=== PATIENT | male | born 1965 | race Caucasian/White ===

== ENCOUNTER → 2016-11-05 | Outpatient (CLI) | payer MEDICARE, MEDICAID ==
[~2016-11-05] MED LIST: ACET-2321 PO; ALBU8.5H5 IH; ALPR2TAB7 PO; ARFO15VI2 IH; ASPI-917 PO; ATOR40TA29 PO; CLOP75TA33 PO; CYCL-375 PO; DIPH25TA56 PO; DULO60CA25 PO; GEMF600T61 PO; HYDR-3995 PO; IMMU4VIA SQ; ISOS30TA6 PO; LISI-621 PO; METO10TA3 PO; METO50TA5 PO; OFLO5DRO3 EACH EAR; OMEP40CA30 PO; QUET400T3 PO; [UNRECOGNIZED DRUG - CODE] IM; [UNRECOGNIZED DRUG - CODE] IM
[2016-11-05 11:41] LABS: HCT - HEMATOCRIT 43.8 % (41-53); HGB - HEMOGLOBIN 14.6 GM/DL (13.5-17.5); MEAN CORPUSCULAR HGB 30.1 UUG (26-34); MEAN CORPUSCULAR HGB CONC(MCHC 33.3 GM/DL (31-37); MEAN CORPUSCULAR VOLUME 90.3 UM3 (80-100); MEAN PLATELET VOLUME 10.4 UM3 (9.4-12.4); RED BLOOD COUNT 4.85 M/MM3 (4.50-5.90); WBC - WHITE BLOOD COUNT 4.5 T/MM3 (4.5-11.0)
[2016-11-05 11:50] LABS: ALBUMIN 3.7 G/DL (3.5-5.0); ALBUMIN/GLOBULIN RATIO 1.3 RATIO (1.1-2.2); ALKALINE PHOSPHATASE 90 U/L (38-126); ALT (SGPT) 17 U/L (21-72); ANION GAP 11 MEQ/L (5-15); AST (SGOT) 21 U/L (17-59); BUN/CREATININE RATIO 9 RATIO (6-26); CALCIUM 8.8 MG/DL (8.4-10.2); CHLORIDE 104 MEQ/L (98-107); CO2 - CARBON DIOXIDE 28 MEQ/L (22-30); GLOMERULAR FILTRATION RATE 79; GLUCOSE 133 MG/DL (75-110); POTASSIUM 4.1 MEQ/L (3.6-5); SODIUM 143 MEQ/L (134-144); TOTAL PROTEIN 6.6 G/DL (6.3-8.2)
[2016-11-05 11:57] LABS: IGG - IMMUNOGLOBULIN G 808.47 MG/DL (700-1600)
== END ==
LOC: LABN 11:29 → LABN.ARJ 11:29
PROVIDERS: ATTEND Internal Medicine Infectious Disease
DX: D83.9 Common variable immunodeficiency, unspecified (principal)
CPT/HCPCS: 80053; 82784; 85027

== ENCOUNTER 2016-11-28 10:44 | Emergency (ER) | payer MEDICARE, MEDICAID ==
[~2016-11-28] VITALS: Ht 177.8 cm; Wt 80.0 kg
--- OUTSIDE RECORDS SUMMARY | 2016-11-28 10:48 | XMS REPORT | Continuity of Care Document ---
Author Author Mavis Enriquez Mavis Address Unknown Phone Unavailable Care Team Providers Care Ore Puncher Name Role Phone [employer] Unavailable Unavailable Problems Medications Allergies, Adverse Reactions, Alerts Immunizations Results Order Name Results Value Reference Range Date Interpretation Comments Source Cardiology Documents Cardiology Documents 05/15/2005 [facility] Cardiology Documents Cardiology Documents 05/15/2005 [facility] Cardiology Documents Cardiology Documents 05/15/2005 [facility] Cardiology Documents Cardiology Documents 05/15/2005 [facility] Vital Signs Encounters Procedures Plan of Care Social History Assessment and Plan Family History Value Date Source Advance Directives Order Name Results Value Date Source
--- OUTSIDE RECORDS SUMMARY | 2016-11-28 10:48 | XMS REPORT | Continuity of Care Document ---
Author Author [facility] Organization [facility] Address Unknown Phone Unavailable Allergies Active Description Code Type Severity Reaction Onset Reported/Identified Relationship to Patient Clinical Status Yes acetaminophen NKMA N/A ITCHING 11/10/2013 Yes oxyCODONE NKMA N/A ITCHING 11/10/2013 Medications Problems Procedures Results Encounters ACCT No. Visit Date/Time Discharge Status Pt. Type Provider Facility Loc./Unit Complaint [id number] 11/22/2016 14:20:00 2016 23:59:00 DIS Outpatient Zacarias Woodson [facility] ENT TCPA RCK BLEEDING FROM EAR [id number] 05/19/2015 14:05:00 2014 23:59:00 DIS Outpatient Nidhi Higuera [facility] Audio Nidhi HAJI [id number] 01/04/2015 16:10:00 2014 23:59:00 DIS Outpatient Nidhi Higuera [facility] Audio Nidhi SAHU Charges
--- OUTSIDE RECORDS SUMMARY | 2016-11-28 10:49 | XMS REPORT ---
Author Author Charlie Braswell Organization [employer] Address Unknown Phone Unavailable Care Team Providers Care Fence Supervisor Name Role Phone Charlie Braswell CP Unavailable Allergies No Known Allergies Problems No Known Problems Medications No Known Medications Results No Known Results Summary Purpose [employer] Submission
--- OUTSIDE RECORDS SUMMARY | 2016-11-28 10:49 | XMS REPORT ---
Author Author Charlie Braswell [facility] [employer] Address Unknown Phone Unavailable Care Team Providers Care Aluminum Siding Mechanic Name Role Phone Charlie Braswell CP Unavailable Allergies, Adverse Reactions, Alerts Substance Reaction Event Type Ultram Info Not Available Drug Allergy Percocet Info Not Available Drug Allergy Nyssa Info Not Available Drug Allergy Morphine Sulfate Info Not Available Drug Allergy Dilaudid Info Not Available Drug Allergy Problems Problem Type Condition Code Onset Dates Condition Status Assessment Dental caries on pit and fissure surface penetrating into pulp K02.53 Active Medications Medication Code System Code Instructions Start Date End Date Status Dosage ALPRAZolam ER [facility] [address]-09 not defined Prilosec [facility] [address]-80 not defined Lisinopril [facility] [address]-21 not defined Lortab [facility] [address]-48 not defined Metoprolol Tartrate [facility] [address]-84 not defined ProAir HFA [facility] [address]-84 not defined Seroquel XR [facility] [address]-37 not defined Atorvastatin Calcium [facility] [address]-29 not defined Toprol XL [facility] [address]-17 not defined Hydrocodone-Acetaminophen [facility] [address]-30 not defined Isosorbide Dinitrate [facility] [address]-93 not defined Metoclopramide HCl [facility] [address]-54 not defined Plavix [facility] [address]-93 not defined Chlorhexidine Gluconate [facility] [address]-47 0.12 % Mouth/Throat morning and bedtime not defined Benadryl Allergy [facility] 55849-82683 not defined Anbesol [facility] [address]-21 not defined Tylenol Extra Strength [facility] [address]-33 not defined Xanax [facility] [address]-09 not defined Aspirin [facility] [address]-04 not defined Cymbalta [facility] [address]-34 not defined EpiPen NDC [address]-33 not defined Nitrostat [facility] [address]-85 not defined Brovana [facility] [address]-39 not defined Gemfibrozil [facility] [address]-79 not defined Ofloxacin [facility] [address]-72 not defined Procedures Procedure Coding System Code Date EXTRAC ERUPTED TOOTH/EXPOSED ROOT CPT-4 D7140 Apr 30, 2016 EXTRAC ERUPTED TOOTH/EXPOSED ROOT CPT-4 D7140 Apr 30, 2016 EXTRAC ERUPTED TOOTH/EXPOSED ROOT CPT-4 D7140 Apr 30, 2016 EXTRAC ERUPTED TOOTH/EXPOSED ROOT CPT-4 D7140 Apr 30, 2016 EXTRAC ERUPTED TOOTH/EXPOSED ROOT CPT-4 D7140 Apr 30, 2016 Results No Known Results Summary Purpose [employer] Submission
--- OUTSIDE RECORDS SUMMARY | 2016-11-28 10:49 | XMS REPORT | Continuity of Care Document ---
Author Author [facility] Organization [facility] Address Unknown Phone Unavailable Support Name Relationship Address Phone SHANNON WISE MD Caregiver [facility] [address] [place] [address] [phone] DENILSON ESPARZA MD Caregiver [address] [place] [address] [place] [phone] CARLOS TUBBS Caregiver [address] [place] [place], [place] [address] ABEL PETERSEN Next Of Kin [address] [place], [place] [id number] Insurance Providers Payer Name Policy Number Subscriber Name Relationship Medicare [id number] Dania Petersen Ii 19 Self Medicaid [id number] Dania Petersen Ii Self Advance Directives Directive Response Recorded Date/Time Advanced Directives Type None 01/12/14 11:28am Ordered Resuscitation Status Full Code 09/16/14 2:24pm Resuscitation Documents on File No 09/16/14 3:08pm Chief Complaint and Reason for Visit Chief Complaint CHEST PAIN Reason for Visit Atypical chest pain Chest pain Chest pain CAD (coronary artery disease) Problems Medical Problems Problem Onset Date Status Atypical chest pain Unknown Resolved Sinus tachycardia Unknown Active Chest pain Unknown Active Chest pain Unknown Active CAD (coronary artery disease) Unknown Active Medications Medication Dose Route Sig Days/Qty Instructions Order Date Discontinued Date Status Aripiprazole 2 Mg PO BEDTIME 01/01/10 03/01/11 Discontinued Amitriptyline Hcl 50 Mg PO BEDTIME 01/01/10 03/01/11 Discontinued [Cambien] 10 Mg PO BEDTIME 05/23/08 07/10/08 Discontinued Duloxetine Hcl 60 Mg PO TWICE A DAY 01/01/10 03/01/11 Discontinued Clonazepam 1 Mg PO TWICE A DAY 01/01/10 03/17/11 Discontinued Amlodipine Besylate 5 Mg PO DAILY 01/01/10 01/28/13 Discontinued Mirtazapine 15 Mg PO BEDTIME 05/23/08 01/01/10 Discontinued Metoprolol Succinate 50 Mg PO DAILY 05/23/08 01/01/10 Discontinued Hydrocodone Bit/Acetaminophen 1 Tab PO NEEDED 01/01/10 03/17/11 Discontinued Metoprolol Succinate 25 Mg PO DAILY 03/08/11 12/17/12 Discontinued Amitriptyline Hcl 0 PO BEDTIME 03/08/11 03/17/11 Discontinued Promethazine Hcl 25 Mg PO NEEDED 03/08/11 03/17/11 Discontinued Aripiprazole 5 Mg PO DAILY 03/08/11 03/17/11 Discontinued Carisoprodol 350 Mg PO THREE TIMES A DAY 03/08/11 03/17/11 Discontinued Duloxetine Hcl 60 Mg PO DAILY 03/08/11 03/17/11 Discontinued Calcium Carbonate/Vitamin D3 1 Tab.chew PO TWICE A DAY 03/17/1106/07 Discontinued Clonazepam 2 Mg PO TWICE A DAY 03/17/11 12/17/11 Discontinued [Prednisone] 03/17/11 04/08/11 Discontinued Cephalexin Monohydrate 500 Mg PO FOUR TIMES DAILY 03/17/11 04/08/11 Discontinued Diphenhydramine Hcl 25 Mg PO NEEDED 03/17/11 03/30/12 Discontinued Oxycodone Hcl/Acetaminophen 1 Tab PO NEEDED 03/17/11 03/19/11 Discontinued Zolpidem Tartrate 10 Mg PO BEDTIME 03/17/11 11/05/11 Discontinued Acetaminophen/Dp-Hydram Hcl 1 Tab PO NEEDED 04/08/11 11/05/11 Discontinued Metoclopramide Hcl 10 Mg PO NEEDED 05/30/11 03/30/12 Discontinued Gabapentin 300 Mg PO BEDTIME 05/30/11 11/05/11 Discontinued Amitriptyline Hcl 50 Mg PO BEDTIME 05/30/11 09/17/13 Discontinued Duloxetine Hcl 60 Mg PO DAILY 11/05/11 Active Hydrocodone Bit/Acetaminophen 1 Tab PO NEEDED 11/05/11 08/05/12 Discontinued Carisoprodol 350 Mg PO NEEDED 11/05/11 12/17/11 Discontinued Quetiapine Fumarate 50 Mg PO BEDTIME 11/05/11 03/30/12 Discontinued Aripiprazole DAILY 12/17/11 03/30/12 Discontinued Alprazolam 1 Mg PO FOUR TIMES DAILY 12/17/11 Active Methocarbamol 750 Mg PO QID PRN 01/31/12 12/17/12 Discontinued Tamsulosin Hcl 0.4 Mg PO DAILY 01/31/12 03/30/12 Discontinued Budesonide 0.5 Mg IH TWICE A DAY 01/31/12 12/17/12 Discontinued Omeprazole 40 Mg PO DAILY 01/31/12 Active Quetiapine Fumarate 300 Mg PO DAILY 03/30/12 08/02/12 Discontinued Metoclopramide Hcl 10 Mg PO Q6H/0300,0900,1500,2100 PRN 08/02/12 Discontinued [Hizentra] QWEEKLY 08/02/12 12/17/12 Discontinued Atorvastatin Calcium 40 Mg PO BEDTIME 12/17/12 Active Diphenhydramine Hcl 25-50 Mg PO TWICE A DAY PRN 12/17/12 Active Epinephrine 0.3 Mg IM NEEDED 12/17/12 Active Gemfibrozil 600 Mg PO TWICE A DAY 12/17/12 Active Immune Globulin,Gamma (Igg) 10 Gm SQ WEEKLY Friday12/17/12 Active Hydrocodone Bit/Acetaminophen 1 Tab PO EVERY 4-6 HOURS PRN 12/17/12 01/28/13 Discontinued Metoprolol Tartrate 25 Mg PO TWICE A DAY 12/17/12 Active Albuterol Sulfate 2 Puff IH NEEDED 01/12/13 Active Sucralfate 1 G PO FOUR TIMES DAILY 01/12/13 09/17/13 Discontinued Nitroglycerin 0.4 Mg SL NEEDED 01/12/13 Active Arformoterol Tartrate 15 Mcg IH TWICE A DAY 09/17/13 Active Hydrocodone Bit/Acetaminophen 1 Tab PO NEEDED 1 Qty EVERY 4 HOURS PRN 09/17/13 Active Isosorbide Mononitrate 30 Mg PO DAILY 09/17/13 Active Ofloxacin 4 Drop EACH EAR EVERY 4-6 HOURS 09/16/14 Active Meclizine HCl 25 Mg PO NEEDED Take 1 tablet, by mouth, TID times a day PRN 09/16/14 Active Lisinopril 1 Tab PO DAILY 09/16/14 Active Quetiapine Fumarate 1 Tab PO BEDTIME 09/16/14 Active Aspirin 81 Mg PO ONETIME 30 Qty 09/16/14 Active Social History Social History Problem Response Recorded Date/Time Chewing Tobacco Status No 01/12/2014 11:55am Hx Substance Use No 09/16/2014 1:07pm Hx Alcohol Use No 09/16/2014 1:07pm Has the pt used tobacco in the last 12 months Yes 09/16/2014 3:11pm Tobacco Usage none 09/16/2014 8:57pm Query Response Start Date Stop Date Smoking Status Light Smoker Hospital Discharge Instructions Instructions: Care Instructions: Reason for Hospitalization: chest pain I was in the hospital because (patient own words): PT STATES "I WAS HAVING CHEST PAIN AT HOME" Discharge Diet: Cardiac Discharge Activity: as tolerated. Follow Up Appointments: Dr. Wise in 1 to 2 weeks. Condition at time of discharge: Good n/a Durable Medical Equipment: n/a Notify Physician If: worsening chest pain, SOB, fever > 100 General Information: n/a Condition at time of discharge: Good Condition at time of discharge: Good Plan of Care Discharge Date 09/16/14 10:15pm Disposition 01 DISCHARGED HOME, SELF-CARE Instructions/Education Provided Coronary Artery Disease DI for Chest Pain Prescriptions See Medications Section Functional Status Query Response Date Recorded Physical Hygiene Self September 16, 2014 1:07pm Disabilities Hearing Visual January 12, 2014 11:55am Devices Used None September 16, 2014 2:37pm Dressing Self September 16, 2014 1:07pm Ambulation Self January 12, 2014 11:55am Diet Self September 16, 2014 1:07pm Mental Status Alert Forgetful January 12, 2014 11:55am Disabilities Hearing Visual January 12, 2014 11:55am Devices Used None September 16, 2014 2:37pm Physical Hygiene Self September 16, 2014 1:07pm Dressing Self September 16, 2014 1:07pm Ambulation Self January 12, 2014 11:55am Diet Self September 16, 2014 1:07pm Allergies, Adverse Reactions, Alerts Allergen Type Severity Reaction Status Last Updated oxycodone HCl Allergy Unknown RASH Active 09/16/14 Morphine Allergy Unknown RASH Active 09/16/14 Tramadol Allergy Unknown RASH Active 09/16/14 Immunizations Name Given Type Hx Influenza Vaccination Y JUN 2014 Historical Hx Pneumococcal Vaccination Y MAY 25 Historical Hx Tetanus, Diptheria, Pertussis Yes Historical Hx Influenza Vaccination Y JUN 2014 Historical Hx Tetanus Diptheria Yes Historical Hx Tetanus, Diptheria, Pertussis Yes Historical Vital Signs Acute Vital Signs Vital Response Date/Time Temperature (Fahrenheit) 96.8 deg F (96.8 - 99.1) Pulse Rate (adult) 62 bpm (60 - 100) Respiratory Rate 14 breaths/min (10 - 20) O2 Sat by Pulse Oximetry 99 % (90 - 100) Blood Pressure 120/54 mm Hg Height (Feet) 5 feet Height (Inches) 10.00 inches Height 5 ft 10 in Weight 191 lb Body Mass Index 27.0 kg/m^2 Results Test Source Date Result Interp. Ref. Range Comments Acetaminophen Level September 17, 2013 4:58pm < 10 UG/ML L 10-30 TOXIC <4 HR POST INGESTION: >150 MG/L;TOXIC <12 HR POST INGESTION: >50 MG/L Activated Partial Thromboplast Time September 16, 2014 12:29pm 30.1 SEC N 24 -36 Ordering r/o VTE Yes Alanine Aminotransferase (ALT/SGPT) September 16, 2014 12:29pm 16 U/L L 21- 72 Albumin September 16, 2014 12:29pm 4.4 G/DL N 3.5-5.0 Albumin/Globulin Ratio September 16, 2014 12:29pm 1.4 RATIO N 1.1-2.2 Alcohol, Quantitative September 17, 2013 4:58pm <10 MG/DL - Alkaline Phosphatase September 16, 2014 12:29pm 79 U/L N 38-126 Amylase Level August 02, 2012 1:55am 60 U/L N 30-110 Anion Gap September 16, 2014 12:29pm 14 MEQ/L N 5-15 Anisocytosis August 25, 2013 9:35am 1+ - Arterial Blood Base Excess August 05, 2012 1:45pm 7.4 MMOL/L H -2.0- 2.0 Arterial Blood HCO3 August 05, 2012 1:45pm 32 MEQ/L H 22-26 Arterial Blood Oxygen Saturation August 05, 2012 1:45pm 94.0 % L 95.0- 98.0 Arterial Blood Partial Pressure CO2 August 05, 2012 1:45pm 44 MMHG N 34 -45 Arterial Blood Total CO2 August 05, 2012 1:45pm 33.4 MEQ/L H 23-27 Arterial Blood pH August 05, 2012 1:45pm 7.470 H 7.350-7.450 Arterial Blood pO2 at Patient Temp August 05, 2012 1:45pm 66 MMHG L 80- 100 Aspartate Amino Transf (AST/SGOT) September 16, 2014 12:29pm 28 U/L N 17-59 B-Type Natriuretic Peptide January 01, 2010 2:00pm < 15 PG/ML L 15-100 BUN/Creatinine Ratio September 16, 2014 12:29pm 13 RATIO N 6-26 Bacterial Antigen Specimen Source March 16, 2011 10:52pm N - Band Neutrophils # October 12, 2013 10:00am 0.8 T/MM3 - Band Neutrophils % October 12, 2013 10:00am 6.0 % N 0-6 Basophils # (Auto) September 16, 2014 12:29pm 0.0 T/MM3 N 0-0.2 Basophils # (Manual) December 07, 2011 10:21am 0.1 T/MM3 N 0-0.2 Basophils % (Manual) December 07, 2011 10:21am 1.0 % N 0-2 Basophils (%) (Auto) September 16, 2014 12:29pm 0.3 % N 0-2 Blood Urea Nitrogen September 16, 2014 12:29pm 13.0 MG/DL N 9-20 C-Reactive Protein September 18, 2013 5:25am 22.6 MG/L H 0-9 CSF Color March 16, 2011 10:52pm Colorless - CSF Glucose March 16, 2011 10:52pm 73 MG/DL H 40-70 CSF Lymphocytes March 16, 2011 10:52pm 100 % - CSF RBC March 16, 2011 10:52pm 0 /MM3 N 0-0 CSF Total Protein March 16, 2011 10:52pm 37 MG/DL N 12-60 CSF Turbidity March 16, 2011 10:52pm Clear - CSF WBC March 16, 2011 10:52pm 9 /MM3 H 0-5 Calcium Level September 16, 2014 12:29pm 9.3 MG/DL N 8.4-10.2 Calculated Osmolality September 16, 2014 12:29pm 273 MOSM/KG N 261-280 Carbon Dioxide Level September 16, 2014 12:29pm 23 MEQ/L N 22-30 Chemistry Specimen Hemolysis September 16, 2014 6:00pm < 15 0-25 0-25: No Hemolysis.26-70: Slight Hemolysis - can falsely elevate K and Urine Protein. 71-285: Moderate Hemolysis - can falsely elevate K, Troponin I, CA 19-9, PTH, CSF GLucose, and Urine Protein, and can falsely decrease Phenytoin. 286-999: Gross Hemolysis - can falsely elevate K, Troponin I, CA 19-9, PTH, CSF Glucose, and Urine Protine, and can falsely decrease Phenytoin. Recommend specimen recollection. Chloride Level September 16, 2014 12:29pm 105 MEQ/L N 98-107 Cholesterol Level October 12, 2013 10:00am 177 MG/DL N 132-199 Cholesterol/HDL Ratio October 12, 2013 10:00am 2.8 RATIO N 0-5.0 Conjugated Bilirubin August 05, 2012 1:53pm 0.00 MG/DL N 0.00-0.30 Creatine Kinase MB December 18, 2012 6:50am 0.6 NG/ML N 0-3.4 Creatinine September 16, 2014 12:29pm 1.0 MG/DL N 0.8-1.5 D-Dimer September 16, 2014 12:29pm 274 NG/ML H 0-230 <230 NG/ML D-DU= PRESUMPTIVE NEGATIVE FOR PE OR DVT>230 NG/ML D-DU=ADDITIONAL EVAL FOR PE OR DVT RECOMMENDED Eosinophils # (Auto) September 16, 2014 12:29pm 0.3 T/MM3 N 0-0.5 Eosinophils # (Manual) August 25, 2013 9:35am 0.2 T/MM3 N 0-0.5 Eosinophils % (Manual) August 25, 2013 9:35am 2.0 % N 0-4 Eosinophils (%) (Auto) September 16, 2014 12:29pm 5.0 % H 0-4 Erythrocyte Sedimentation Rate September 18, 2013 5:25am 23 MM/HR H 0-15 Free Thyroxine December 17, 2012 7:58pm 1.07 NG/DL N 0.78-2.19 COMMENT ON BLOOD IN LAB Globulin September 16, 2014 12:29pm 3.2 G/DL N 2.4-3.6 Glomerular Filtration Rate Calc September 16, 2014 12:29pm 80 - Glucometer March 16, 2011 9:03pm 170 mg/dL H 75-110 Glucose Level September 16, 2014 12:29pm 107 MG/DL N 75-110 Group A Streptococcus Screen December 16, 2012 12:50pm Negative - Strep culture confirmation to follow Group B Streptococcus Antigen March 16, 2011 10:52pm Negative - HDL Cholesterol Direct October 12, 2013 10:00am 63 MG/DL H 40-60 Hematocrit September 16, 2014 12:29pm 44.3 % N 41-53 Hemoglobin September 16, 2014 12:29pm 14.9 GM/DL N 13.5-17.5 Hemoglobin A1c September 18, 2013 5:25am 5.4 % L 6-7 <6.0 NON-DIABETIC RANGE6.0-7.0 ADA THERAPEUTIC RANGE >7.0 ACTION SUGGESTED Icterus Index September 16, 2014 12:29pm < 2 0-7 Immature Granulocyte # (Auto) September 16, 2014 12:29pm 0.01 T/MM3 N 0.00- 0.03 Immature Granulocyte % (Auto) September 16, 2014 12:29pm 0.2 % N 0.0-0.5 Immunoglobulin A September 17, 2013 8:35pm 161.49 MG/DL N 70-400 Immunoglobulin G April 20, 2014 10:50am 1019.00 MG/DL N 700-1600 Immunoglobulin M September 17, 2013 8:35pm 91.73 MG/DL N 40-230 Influenza Type A Antigen August 02, 2012 1:45am Negative - Negative for Flu A protein antigen. Assay sensitivity isbetween 65-83%. A negative result does not exclude influenza virus infection. "Influenza FA" may be ordered if clinical presentation warrants confirmatory testing. Influenza Type B Antigen August 02, 2012 1:45am Negative - Negative for Flu B protein antigen. Assay sensitivity isbetween 65-83%. A negative result does not exclude influenza virus infection. "Influenza FA" may be ordered if clinical presentation warrants confirmatory testing. LDL Cholesterol, Calculated October 12, 2013 10:00am 98.2 N 66-159 Lab Scanned Report August 24, 2014 9:02pm LAB TEST FORM REQUEST - Lipase August 02, 2012 1:55am 47 U/L N 23-300 Lymphocytes # (Auto) September 16, 2014 12:29pm 1.4 T/MM3 N 1-4.8 Lymphocytes # (Manual) October 12, 2013 10:00am 0.7 T/MM3 L 1-4.8 Lymphocytes % (Manual) October 12, 2013 10:00am 5.0 % L 23-45 Lymphocytes (%) (Auto) September 16, 2014 12:29pm 23.2 % N 23-45 Magnesium Level September 16, 2014 12:29pm 2.0 MG/DL N 1.6-2.3 Mean Corpuscular Hemoglobin September 16, 2014 12:29pm 30.0 UUG N 26-34 Mean Corpuscular Hemoglobin Concent September 16, 2014 12:29pm 33.6 GM/DL N 31-37 Mean Corpuscular Volume September 16, 2014 12:29pm 89.3 UM3 N 80-100 Mean Platelet Volume September 16, 2014 12:29pm 10.7 UM3 N 9.4-12.4 Monocytes # (Auto) September 16, 2014 12:29pm 0.6 T/MM3 N 0-0.8 Monocytes # (Manual) August 25, 2013 9:35am 0.5 T/MM3 N 0-0.8 Monocytes % (Manual) August 25, 2013 9:35am 6.0 % N 0-9.0 Monocytes (%) (Auto) September 16, 2014 12:29pm 10.3 % H 0-9.0 N. meningitidis B/E. coli K1 March 16, 2011 10:52pm Negative - N. meningitidis C/W 135 March 16, 2011 10:52pm Negative - OO-Ihn-Y-Type Natriuretic Peptide September 16, 2014 12:29pm 231 PG/ML H 0- 175 Rule in cut points: <50 years old=450; 50-75 years old=900; >75 years old=1800; When utilizing ProBNP rule-in cut points, adjustment for impaired renal function is typically not required. Neisseria meningitidis A/Y Antigen March 16, 2011 10:52pm Negative - Neutrophils # (Auto) September 16, 2014 12:29pm 3.7 T/MM3 N 1.8-7.7 Neutrophils # (Manual) October 12, 2013 10:00am 12.5 T/MM3 H 1.8-7.7 Neutrophils % (Manual) October 12, 2013 10:00am 89.0 % H 33-66 Neutrophils (%) (Auto) September 16, 2014 12:29pm 61.0 % N 33-66 Oxygen Delivery Method (LAB) August 05, 2012 1:45pm Room air - Phosphorus Level September 18, 2013 5:25am 1.9 MG/DL L 2.5-4.5 Platelet Count September 16, 2014 12:29pm 213 T/MM3 N 130-400 Potassium Level September 16, 2014 12:29pm 4.4 MEQ/L N 3.6-5 Procalcitonin December 16, 2012 1:03pm < 0.05 NG/ML - PCT </=0.5 ng/mL - sepsis not likely;PCT >0.5 and </=2 ng/mL - sepsis possible; PCT >2 ng/mL - sepsis likely; PCT >/=10 ng/mL - systemic inflammatory response - sepsis or septic shock highly indicated. Prostate Specific Antigen May 28, 2011 2:00pm 0.73 NG/ML N 0-4.0 Prothromb Time International Ratio September 16, 2014 12:29pm 0.98 N 0.81- 1.09 THERAPUTIC RANGE=2.00-3.00 FOR ANTI-THROMBOSIS THERAPUTIC RANGE=2.50- 3.50 FOR IMPLANTED VALVE RDW Standard Deviation September 16, 2014 12:29pm 43.3 FL N 36.9-50.2 Reactive Lymphocytes # August 25, 2013 9:35am 0.2 T/MM3 H 0-0 Reactive Lymphocytes % August 25, 2013 9:35am 2.0 % H 0-0 Red Blood Count September 16, 2014 12:29pm 4.96 M/MM3 N 4.50-5.90 Salicylates Level September 17, 2013 4:58pm < 1.0 MG/DL L 2-20 Sodium Level September 16, 2014 12:29pm 142 MEQ/L N 134-144 Stool Occult Blood December 17, 2012 7:45pm Negative - Has specimen been collected/obtained? Y Streptococcus pneumoniae Antigen March 16, 2011 10:52pm Negative - Thyroid Stimulating Hormone (TSH) December 17, 2012 7:58pm 1.97 MIU/L N 0.47 -4.68 COMMENT ON BLOOD IN LAB Total Bilirubin September 16, 2014 12:29pm 0.60 MG/DL N 0.20-1.30 Total Creatine Kinase December 18, 2012 6:50am 70 U/L N 55-170 Total Protein September 16, 2014 12:29pm 7.6 G/DL N 6.3-8.2 Triglycerides Level October 12, 2013 10:00am 79 MG/DL N 40-160 Troponin I September 16, 2014 6:00pm < 0.012 ng/ml 0-0.12 Turbidity September 16, 2014 12:29pm < 20 0-20 Unconjugated Bilirubin August 05, 2012 1:53pm 0.30 MG/DL N 0.00-1.10 Urinalysis Comment September 16, 2014 1:16pm Microscopic not ind. - Has specimen been collected/obtained? Y Urine Amorphous Urates September 18, 2013 12:05am Few - COMMENT please do full microscopy. you may use urine in the lab. Has specimen been collected/obtained? Y Urine Bacteria September 18, 2013 12:05am None seen - COMMENT please do full microscopy. you may use urine in the lab. Has specimen been collected/obtained? Y Urine Bilirubin September 16, 2014 1:16pm Negative - Has specimen been collected/obtained? Y Urine Blood September 16, 2014 1:16pm Negative - Has specimen been collected/obtained? Y Urine Calcium Oxalate Crystals December 07, 2011 10:00am Few - Has specimen been collected/obtained? Y Urine Collection Type September 16, 2014 1:16pm Cleancatch-midstream - Has specimen been collected/obtained? Y Urine Color September 16, 2014 1:16pm Yellow - Has specimen been collected/obtained? Y Urine Culture Indicated September 18, 2013 12:05am Cult ordered & setup - COMMENT please do full microscopy. you may use urine in the lab. Has specimen been collected/obtained? Y Urine Glucose (UA) September 16, 2014 1:16pm Negative - Has specimen been collected/obtained? Y Urine Ketones September 16, 2014 1:16pm Negative - Has specimen been collected/obtained? Y Urine Leukocyte Esterase September 16, 2014 1:16pm Negative - Has specimen been collected/obtained? Y Urine Microscopic Not Indicated November 05, 2011 12:15am Not indicated - Has specimen been collected/obtained? Y Urine Mucus December 07, 2011 10:00am Present - Has specimen been collected/obtained? Y Urine Myoglobin November 05, 2011 12:15am Send out - Has specimen been collected/obtained? Y Urine Nitrite September 16, 2014 1:16pm Negative - Has specimen been collected/obtained? Y Urine Protein September 16, 2014 1:16pm Negative - Has specimen been collected/obtained? Y Urine RBC September 18, 2013 12:05am None seen /HPF - COMMENT please do full microscopy. you may use urine in the lab. Has specimen been collected/obtained? Y Urine Random Creatinine September 17, 2013 6:06pm 62.7 MG/DL - Has specimen been collected/obtained? YCOMMENT SPOT URINE CREATININE Urine Random Sodium September 17, 2013 6:06pm 57 MEQ/L N 30-90 Has specimen been collected/obtained? Y Urine Specific [place] September 16, 2014 1:16pm <=1.005 L - Has specimen been collected/obtained? Y Urine Squamous Epithelial Cells September 18, 2013 12:05am None seen - COMMENT please do full microscopy. you may use urine in the lab. Has specimen been collected/obtained? Y Urine Turbidity September 16, 2014 1:16pm Clear - Has specimen been collected/obtained? Y Urine Urobilinogen September 16, 2014 1:16pm 0.2 EU/DL - Has specimen been collected/obtained? Y Urine WBC September 18, 2013 12:05am None seen /HPF - COMMENT please do full microscopy. you may use urine in the lab. Has specimen been collected/obtained? Y Urine pH September 16, 2014 1:16pm 7.0 - Has specimen been collected/ obtained? Y VLDL Cholesterol October 12, 2013 10:00am 15.8 MG/DL N 0-28 Venous Blood Lactate December 16, 2012 1:03pm 1.6 MMOL/L N 0.6-2.2 White Blood Count September 16, 2014 12:29pm 6.0 T/MM3 N 4.5-11.0 Blood Culture Blood September 17, 2013 8:35pm NO GROWTH AFTER 5 DAYS Gram Stain Cerebral Spinal Fluid March 16, 2011 10:52pm Gram Stain Ear Canal-Right May 31, 2011 9:07am Gram Stain Sputum-Expectorated Sputum December 16, 2012 3:33pm Urine Culture Urine, Voided-Not Cc-Midstream September 18, 2013 12:05am Name: DANIA PETERSEN II Unit #: [id number] : 1965 Sex: M Loc / Svc: ED DOS: 09/16/14 Signed Report #: [id number] DIAGNOSTIC IMAGING REPORT TYPE OF EXAM: CHEST 1 VIEW Dictated By: DAVID MIRANDA MD Indication: ITS.REASON: chest pain CHEST 1 VIEW: Comparison: [id number] Technique: Single view chest Findings: Patient shows a stable granuloma in the right mid chest with perhaps minimal pleural reaction in the same region. This is not changed since previous study. Heart, mediastinum and central vascularity are unremarkable. No acute new cardiopulmonary findings are seen. No new bony findings noted. Impression: Stable granuloma in the right mid chest bilaterally. No additional acute findings. . Procedures Procedure Status Date Provider(s) ASSAY OF CREATININE completed 06/22/14 ASSAY OF CREATININE completed 08/24/14 Encounters Encounter Location Date/Time Discharged Inpatient [facility] 09/16/14 2:39pm Registered Clinic [facility] 08/24/14 12:52pm Registered Clinic [facility] 06/22/14 12:29pm Recent Diagnosis Atypical chest pain Chest pain Chest pain CAD (coronary artery disease)
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
--- OUTSIDE RECORDS SUMMARY | 2016-11-28 10:50 | XMS REPORT | Continuity of Care Document ---
Author Author [facility] Organization [facility] Address Unknown Phone Unavailable Support Name Relationship Address Phone BETTYE NOGUERA DO Caregiver [facility] [address] [place] [address] CARLOS TUBBS Caregiver [address] [place], [place] [address] NEREYDA RAMOS MD Caregiver [address] [place] [address] JACY STEEN Next Of Kin Unknown [phone] Insurance Providers Payer Name Policy Number Subscriber Name Relationship Medicare [id number] Dania Petersen Ii 19 Self Medicaid [id number] Dania Petersen Ii 19 Self Advance Directives Directive Response Recorded Date/Time Advanced Directives Type None 01/12/14 11:28am Problems Medical Problems Problem Onset Date Status Atypical chest pain Unknown Active Sinus tachycardia Unknown Active Medications Medication Dose Route Sig [...] Discontinued Aripiprazole DAILY 12/17/11 03/30/12 Discontinued Alprazolam 2 Mg PO QID PRN 12/17/11 Active Methocarbamol 750 Mg PO QID [...] Mg PO TWICE A DAY 12/17/12 Active Quetiapine Fumarate 300 Mg PO BEDTIME 12/17/12 Active Albuterol Sulfate 2 Puff IH DAILY 01/12/13 Active Lisinopril 20 Mg PO DAILY 01/12/13 Active Sucralfate 1 G PO FOUR TIMES DAILY 01/12/13 09/17/13 Discontinued Nitroglycerin 0.4 Mg SL NEEDED 01/12/13 Active Arformoterol Tartrate 15 Mcg IH TWICE A DAY 09/17/13 Active Hydrocodone Bit/Acetaminophen 1 Udtab PO NEEDED 1 Qty 09/17/13 Active Isosorbide Mononitrate 30 Mg PO DAILY 09/17/13 Active Social History Social History Problem Response Recorded Date/Time Smoking Status Light Smoker 01/12/2014 11:55am Chewing Tobacco Status No 01/12/2014 11:55am Hx Substance Use No 01/12/2014 11:55am Hx Alcohol Use No 01/12/2014 11:55am Has the pt used tobacco in the last 12 months Yes 09/17/2013 6:18pm Query Response Start Date Stop Date Smoking Status Current every day smoker Hospital Discharge Instructions No hospital discharge instructions. Plan of Care No plan of care. Functional Status Query Response Date Recorded Physical Hygiene Self January 12, 2014 11:55am Disabilities Hearing Visual January 12, 2014 11:55am Devices Used Glasses Cane January 12, 2014 11:55am Dressing Self January 12, 2014 11:55am Ambulation Self January 12, 2014 11:55am Diet Self January 12, 2014 11:55am Mental Status Alert Forgetful January 12, 2014 11:55am Disabilities Hearing Visual January 12, 2014 11:55am Devices Used Glasses Cane January 12, 2014 11:55am Physical Hygiene Self January 12, 2014 11:55am Dressing Self January 12, 2014 11:55am Ambulation Self January 12, 2014 11:55am Diet Self January 12, 2014 11:55am Allergies, Adverse Reactions, Alerts Allergen Type Severity Reaction Status Last Updated hydrocodone bit Allergy Intermediate RASH Active 01/12/14 oxycodone HCl Allergy Unknown RASH Active 01/12/14 Morphine Allergy Unknown RASH Active 01/12/14 Acetaminophen Allergy Intermediate RASH Active 01/12/14 Tramadol Allergy Unknown RASH Active 01/12/14 Immunizations Name Given Type Hx Influenza Vaccination Y STATES JUNE 2013 Historical Hx Pneumococcal Vaccination Y MAY 25 Historical Hx Tetanus, Diptheria, Pertussis Y 3 YEARS AGO Historical Hx Influenza Vaccination Y STATES JUNE 2013 Historical Hx Tetanus Diptheria Y 3 YEARS AGO Historical Hx Tetanus, Diptheria, Pertussis Y 3 YEARS AGO Historical Vital Signs Acute Vital Signs Vital Response Date/Time Temperature (Fahrenheit) 97.2 deg F (96.8 - 99.1) Temperature (Calculated Celsius) 36.41631 degrees C (36.0 - 37.3) Pulse Rate (adult) 113 bpm (60 - 100) Respiratory Rate 20 breaths/min (10 - 20) O2 Sat by Pulse Oximetry 98 % (90 - 100) Blood Pressure 119/96 mm Hg Height 5 ft 2 in Weight 189 lb Body Mass Index 34.0 kg/m^2 Results Test Source Date Result Interp. Ref. Range Comments Acetaminophen Level September 17, 2013 4:58pm < 10 UG/ML L 10-30 TOXIC <4 HR POST INGESTION: >150 MG/L;TOXIC <12 HR POST INGESTION: >50 MG/L Activated Partial Thromboplast Time January 12, 2014 11:45am 34.7 SEC N 24- 36 Alanine Aminotransferase (ALT/SGPT) January 12, 2014 11:45am 24 U/L N 21- 72 Albumin January 12, 2014 11:45am 4.0 G/DL N 3.5-5.0 Albumin/Globulin Ratio January 12, 2014 11:45am 1.3 RATIO N 1.1-2.2 Alcohol, Quantitative September 17, 2013 4:58pm <10 MG/DL - Alkaline Phosphatase January 12, 2014 11:45am 117 U/L N 38-126 Amylase Level August 02, 2012 1:55am 60 U/L N 30-110 Anion Gap January 12, 2014 11:45am 9 MEQ/L N 5-15 Anisocytosis August 25, 2013 [...] August 05, 2012 1:45pm 7.470 H 7.350-7.450 Aspartate Amino Transf (AST/SGOT) January 12, 2014 11:45am 63 U/L H 17-59 B-Type Natriuretic Peptide January 01, 2010 2:00pm < 15 PG/ML L 15-100 BUN/Creatinine Ratio January 12, 2014 11:45am 12 RATIO N 6-26 Bacterial Antigen Specimen Source March 16, 2011 10:52pm N - Band Neutrophils # October 12, 2013 10:00am 0.8 T/MM3 - Band Neutrophils % October 12, 2013 10:00am 6.0 % N 0-6 Basophils # (Auto) January 12, 2014 11:45am 0.0 T/MM3 N 0-0.2 Basophils # (Manual) December 07, 2011 10:21am 0.1 T/MM3 N 0-0.2 Basophils % (Manual) December 07, 2011 10:21am 1.0 % N 0-2 Basophils (%) (Auto) January 12, 2014 11:45am 0.3 % N 0-2 Blood Urea Nitrogen January 12, 2014 11:45am 12.0 MG/DL N 9-20 C-Reactive Protein September 18, [...] 10:52pm 9 /MM3 H 0-5 Calcium Level January 12, 2014 11:45am 8.7 MG/DL N 8.4-10.2 Calculated Osmolality January 12, 2014 11:45am 271 MOSM/KG N 261-280 Carbon Dioxide Level January 12, 2014 11:45am 26 MEQ/L N 22-30 Chloride Level January 12, 2014 11:45am 106 MEQ/L N 98-107 Cholesterol Level October 12, 2013 10:00am 177 MG/DL N 132-199 Cholesterol/HDL Ratio October 12, 2013 10:00am 2.8 RATIO N 0-5.0 Conjugated Bilirubin August 05, 2012 1:53pm 0.00 MG/DL N 0.00-0.30 Creatine Kinase MB December 18, 2012 6:50am 0.6 NG/ML N 0-3.4 Creatinine January 12, 2014 11:45am 1.0 MG/DL N 0.8-1.5 D-Dimer December 17, 2012 7:58pm < 150 NG/ML 0-230 <224 NG/ML= PRESUMPTIVE NEGATIVE FOR PE OR DVT>224 NG/ML=ADDITIONAL EVALUATION FOR PE OR DVT RECOMMENDED Eosinophils # (Auto) January 12, 2014 11:45am 0.3 T/MM3 N 0-0.5 Eosinophils # (Manual) August 25, 2013 9:35am 0.2 T/MM3 N 0-0.5 Eosinophils % (Manual) August 25, 2013 9:35am 2.0 % N 0-4 Eosinophils (%) (Auto) January 12, 2014 11:45am 3.1 % N 0-4 Erythrocyte Sedimentation Rate September 18, 2013 5:25am 23 MM/HR H 0-15 Free Thyroxine December 17, 2012 7:58pm 1.07 NG/DL N 0.78-2.19 COMMENT ON BLOOD IN LAB Globulin January 12, 2014 11:45am 3.2 G/DL N 2.4-3.6 Glucose Level January 12, 2014 11:45am 99 MG/DL N 75-110 Group A Streptococcus Screen December 16, 2012 12:50pm Negative - Strep culture confirmation to follow Group B Streptococcus Antigen March 16, 2011 10:52pm Negative - Hematocrit January 12, 2014 11:45am 43.3 % N 41-53 Hemoglobin January 12, 2014 11:45am 14.2 GM/DL N 13.5-17.5 Hemoglobin A1c September 18, 2013 5:25am 5.4 % L 6-7 <6.0 NON-DIABETIC RANGE6.0-7.0 ADA THERAPEUTIC RANGE >7.0 ACTION SUGGESTED Immunoglobulin A September 17, 2013 8:35pm 161.49 MG/DL N 70-400 Immunoglobulin G October 12, 2013 10:00am 948.04 MG/DL N 700-1600 Immunoglobulin M September 17, [...] October 12, 2013 10:00am 98.2 N 66-159 Lipase August 02, 2012 1:55am 47 U/L N 23-300 Lymphocytes # (Auto) January 12, 2014 11:45am 1.5 T/MM3 N 1-4.8 Lymphocytes # (Manual) October 12, 2013 10:00am 0.7 T/MM3 L 1-4.8 Lymphocytes % (Manual) October 12, 2013 10:00am 5.0 % L 23-45 Lymphocytes (%) (Auto) January 12, 2014 11:45am 17.9 % L 23-45 Magnesium Level September 18, 2013 5:25am 2.3 MG/DL N 1.6-2.3 Mean Corpuscular Hemoglobin January 12, 2014 11:45am 29.7 UUG N 26-34 Mean Corpuscular Hemoglobin Concent January 12, 2014 11:45am 32.8 GM/DL N 31-37 Mean Corpuscular Volume January 12, 2014 11:45am 90.6 UM3 N 80-100 Mean Platelet Volume January 12, 2014 11:45am 10.2 UM3 N 9.4-12.4 Monocytes # (Auto) January 12, 2014 11:45am 1.0 T/MM3 H 0-0.8 Monocytes # (Manual) August 25, 2013 9:35am 0.5 T/MM3 N 0-0.8 Monocytes % (Manual) August 25, 2013 9:35am 6.0 % N 0-9.0 Monocytes (%) (Auto) January 12, 2014 11:45am 11.2 % H 0-9.0 N. meningitidis B/E. coli K1 March 16, 2011 10:52pm Negative - N. meningitidis C/W 135 March 16, 2011 10:52pm Negative - Neutrophils # (Auto) January 12, 2014 11:45am 5.8 T/MM3 N 1.8-7.7 Neutrophils # (Manual) October 12, 2013 10:00am 12.5 T/MM3 H 1.8-7.7 Neutrophils % (Manual) October 12, 2013 10:00am 89.0 % H 33-66 Neutrophils (%) (Auto) January 12, 2014 11:45am 67.3 % H 33-66 Phosphorus Level September 18, 2013 5:25am 1.9 MG/DL L 2.5-4.5 Platelet Count January 12, 2014 11:45am 188 T/MM3 N 130-400 Potassium Level January 12, 2014 11:45am 4.1 MEQ/L N 3.6-5 Prostate Specific Antigen May 28, 2011 2:00pm 0.73 NG/ML N 0-4.0 Prothromb Time International Ratio January 12, 2014 11:45am 0.99 N 0.81- 1.09 THERAPUTIC RANGE=2.00-3.00 FOR ANTI-THROMBOSIS THERAPUTIC RANGE=2.50- 3.50 FOR IMPLANTED VALVE RDW Standard Deviation January 12, 2014 11:45am 41.7 FL N 36.9-50.2 Red Blood Count January 12, 2014 11:45am 4.78 M/MM3 N 4.50-5.90 Salicylates Level September 17, 2013 4:58pm < 1.0 MG/DL L 2-20 Sodium Level January 12, 2014 11:45am 141 MEQ/L N 134-144 Stool Occult Blood December 17, 2012 7:45pm Negative - Has specimen been collected/obtained? Y Streptococcus pneumoniae Antigen March 16, 2011 10:52pm Negative - Thyroid Stimulating Hormone (TSH) December 17, 2012 7:58pm 1.97 MIU/L N 0.47 -4.68 COMMENT ON BLOOD IN LAB Total Bilirubin January 12, 2014 11:45am 0.30 MG/DL N 0.20-1.30 Total Creatine Kinase December 18, 2012 6:50am 70 U/L N 55-170 Total Protein January 12, 2014 11:45am 7.2 G/DL N 6.3-8.2 Triglycerides Level October 12, 2013 10:00am 79 MG/DL N 40-160 Troponin I January 12, 2014 11:45am < 0.012 ng/ml 0-0.12 Unconjugated Bilirubin August 05, 2012 1:53pm 0.30 MG/DL N 0.00-1.10 Urine Amorphous Urates September 18, 2013 12:05am Few - COMMENT please do full microscopy. you may use urine in the lab. Has specimen been collected/obtained? Y Urine Bacteria September 18, 2013 12:05am None seen - COMMENT please do full microscopy. you may use urine in the lab. Has specimen been collected/obtained? Y Urine Bilirubin September 18, 2013 12:05am Negative - COMMENT please do full microscopy. you may use urine in the lab. Has specimen been collected/obtained? Y Urine Blood September 18, 2013 12:05am Negative - COMMENT please do full microscopy. you may use urine in the lab. Has specimen been collected/obtained? Y Urine Calcium Oxalate Crystals December 07, 2011 10:00am Few - Has specimen been collected/obtained? Y Urine Collection Type September 18, 2013 12:05am Voided-not cc-midstr - COMMENT please do full microscopy. you may use urine in the lab. Has specimen been collected/obtained? Y Urine Color September 18, 2013 12:05am Yellow - COMMENT please do full microscopy. you may use urine in the lab. Has specimen been collected/obtained? Y Urine Culture Indicated September 18, 2013 12:05am Cult ordered & setup - COMMENT please do full microscopy. you may use urine in the lab. Has specimen been collected/obtained? Y Urine Glucose (UA) September 18, 2013 12:05am Negative - COMMENT please do full microscopy. you may use urine in the lab. Has specimen been collected/obtained? Y Urine Ketones September 18, 2013 12:05am Negative - COMMENT please do full microscopy. you may use urine in the lab. Has specimen been collected/obtained? Y Urine Leukocyte Esterase September 18, 2013 12:05am Negative - COMMENT please do full microscopy. you may use urine in the lab. Has specimen been collected/obtained? Y Urine Mucus December 07, 2011 10:00am Present - Has specimen been collected/obtained? Y Urine Myoglobin November 05, 2011 12:15am Send out - Has specimen been collected/obtained? Y Urine Nitrite September 18, 2013 12:05am Negative - COMMENT please do full microscopy. you may use urine in the lab. Has specimen been collected/obtained? Y Urine Protein September 18, 2013 12:05am Negative - COMMENT please do full microscopy. you may use urine in the lab. Has specimen been collected/obtained? Y Urine RBC [...] Has specimen been collected/obtained? Y Urine Specific Thornton September 18, 2013 12:05am 1.015 - COMMENT please do full microscopy. you may use urine in the lab. Has specimen been collected/obtained? Y Urine Squamous Epithelial Cells September 18, 2013 12:05am None seen - COMMENT please do full microscopy. you may use urine in the lab. Has specimen been collected/obtained? Y Urine Turbidity September 18, 2013 12:05am Clear - COMMENT please do full microscopy. you may use urine in the lab. Has specimen been collected/obtained? Y Urine Urobilinogen September 18, 2013 12:05am 0.2 EU/DL - COMMENT please do full microscopy. you may use urine in the lab. Has specimen been collected/obtained? Y Urine WBC September 18, 2013 12:05am None seen /HPF - COMMENT please do full microscopy. you may use urine in the lab. Has specimen been collected/obtained? Y Urine pH September 18, 2013 12:05am 6.0 - COMMENT please do full microscopy. you may use urine in the lab. Has specimen been collected/obtained? Y VLDL Cholesterol October 12, 2013 10:00am 15.8 MG/DL N 0-28 White Blood Count January 12, 2014 11:45am 8.6 T/MM3 N 4.5-11.0 Chemistry Specimen Hemolysis January 12, 2014 11:45am < 15 0-25 0-25: No Hemolysis.26-70: Slight [...] can falsely decrease Phenytoin. Recommend specimen recollection. Oxygen Delivery Method (LAB) August 05, 2012 1:45pm Room air - Urinalysis Comment September 17, 2013 6:06pm Microscopic not ind. - Has specimen been collected/obtained? Y Neisseria meningitidis A/Y Antigen March 16, 2011 10:52pm Negative - Glucometer March 16, 2011 9:03pm 170 mg/dL H 75-110 Lab Scanned Report December 29, 2013 8:52pm LAB TEST FORM REQUEST [id number] - HDL Cholesterol Direct October 12, 2013 10:00am 63 MG/DL H 40-60 Turbidity January 12, 2014 11:45am < 20 0-20 Reactive Lymphocytes % August 25, 2013 9:35am 2.0 % H 0-0 Glomerular Filtration Rate Calc January 12, 2014 11:45am 80 - Reactive Lymphocytes # August 25, 2013 9:35am 0.2 T/MM3 H 0-0 Immature Granulocyte # (Auto) January 12, 2014 11:45am 0.02 T/MM3 N 0.00- 0.03 Immature Granulocyte % (Auto) January 12, 2014 11:45am 0.2 % N 0.0-0.5 Arterial Blood pO2 at Patient Temp August 05, 2012 1:45pm 66 MMHG L 80- 100 Venous Blood Lactate December 16, 2012 1:03pm 1.6 MMOL/L N 0.6-2.2 Procalcitonin December 16, 2012 1:03pm < 0.05 NG/ML - PCT </=0.5 ng/mL - sepsis not likely;PCT >0.5 and </=2 ng/mL - sepsis possible; PCT >2 ng/mL - sepsis likely; PCT >/=10 ng/mL - systemic inflammatory response - sepsis or septic shock highly indicated. Icterus Index January 12, 2014 11:45am < 2 0-7 KF-Gmh-Y-Type Natriuretic Peptide January 12, 2014 11:45am 52 PG/ML N 0- 175 Rule in cut points: <50 years old=450; 50-75 years old=900; >75 years old=1800; When utilizing ProBNP rule-in cut points, adjustment for impaired renal function is typically not required. Urine Microscopic Not Indicated November 05, 2011 12:15am Not indicated - Has specimen been collected/obtained? Y Blood Culture Blood September 17, 2013 8:35pm NO GROWTH AFTER 5 DAYS Gram Stain Cerebral Spinal Fluid March 16, 2011 10:52pm Gram Stain Ear Canal-Right May 31, 2011 9:07am Gram Stain Sputum-Expectorated Sputum December 16, 2012 3:33pm Urine Culture Urine, Voided-Not Cc-Midstream September 18, 2013 12:05am Procedures No known history of procedures. Encounters Encounter Location Date/Time Departed Emergency Room [facility] 01/12/14 11:26am Registered Clinic [facility] 12/29/13 2:34pm Recent Diagnosis
--- OUTSIDE RECORDS SUMMARY | 2016-11-28 10:50 | XMS REPORT ---
Author Author Charlie Braswell [facility] [employer] Address Unknown Phone Unavailable Care Team Providers Care Books Salesperson Name Role Phone Charlie Braswell CP Unavailable Allergies No Known Allergies Problems Problem Type Condition Code Onset Dates Condition Status Assessment Dental caries on pit and fissure surface penetrating into pulp K02.53 Active Medications Medication Code System Code Instructions Start Date End Date Status Dosage Chlorhexidine Gluconate [facility] [address]-87 0.12 % Mouth/Throat morning and bedtime not defined Tylenol/Codeine #3 [facility] [address]-93 300-30 MG Orally every 6 hrs Apr 18, 2016 Apr 22, 2016 1 tablet as needed Metoprolol Tartrate [facility] [address]-67 not defined Plavix [facility] [address]-55 not defined Brovana [facility] [address]-02 not defined Isosorbide Dinitrate [facility] [address]-82 not defined Cymbalta [facility] [address]-40 not defined Aspirin [facility] [address]-81 not defined Nitrostat [facility] [address]-45 not defined Lisinopril [facility] [address]-99 not defined Benadryl Allergy [facility] [address]186 not defined Anbesol [facility] [address]-52 not defined EpiPen [facility] [address]-80 not defined Gemfibrozil [facility] [address]-54 not defined Seroquel XR [facility] [address]-89 not defined Tylenol Extra Strength [facility] [address]-51 not defined Hydrocodone-Acetaminophen [facility] [address]-05 not defined Ofloxacin [facility] [address]-01 not defined ProAir HFA [facility] [address]-68 not defined Prilosec [facility] [address]-43 not defined Lortab [facility] [address]-76 not defined Metoclopramide HCl [facility] [address]-44 not defined ALPRAZolam ER [facility] [address]-05 not defined Toprol XL [facility] [address]-01 not defined Xanax [facility] [address]-00 not defined Atorvastatin Calcium [facility] [address]-98 not defined Procedures Procedure Coding System Code Date EXTRAC ERUPTED TOOTH/EXPOSED ROOT CPT-4 D7140 Apr 18, 2016 EXTRAC ERUPTED TOOTH/EXPOSED ROOT CPT-4 D7140 Apr 18, 2016 EXTRAC ERUPTED TOOTH/EXPOSED ROOT CPT-4 D7140 Apr 18, 2016 EXTRAC ERUPTED TOOTH/EXPOSED ROOT CPT-4 D7140 Apr 18, 2016 EXTRAC ERUPTED TOOTH/EXPOSED ROOT CPT-4 D7140 Apr 18, 2016 Results No Known Results Summary Purpose [employer] Submission
--- OUTSIDE RECORDS SUMMARY | 2016-11-28 10:51 | XMS REPORT | Continuity of Care Document ---
Author Author [facility] Organization [facility] Address Unknown Phone Unavailable Support Name Relationship Address Phone SHANNON CHOWDHURY MD Caregiver [facility] [address] [place] [address] , [address] [place] [phone] CARLOS TUBBS Caregiver [address] [place], [place] [address] ABEL PETERSEN Next Of Kin [address] [place] [address] Insurance Providers Payer Name Policy Number Subscriber Name Relationship Medicare [id number] Dania Petersen Ii 18 Self Medicaid [id number] Dania Petersen Ii 18 Self Advance Directives Directive Response Recorded Date/Time Advanced Directives Type None 01/12/14 11:28am Ordered Resuscitation Status Full Code 09/24/14 9:37am Resuscitation Documents on File No 09/26/14 2:10pm Chief Complaint and Reason for Visit Chief Complaint Chest Pain Reason for Visit Chest pain Problems Medical Problems Problem Onset Date Status [...] 81 Mg PO ONETIME 30 Qty 09/16/14 09/27/14 Discontinued Aspirin 325 Mg PO DAILY 30 Qty 09/27/14 Active Clopidogrel Bisulfate 75 Mg PO DAILY 30 Qty 09/27/14 Active Social History Social History Problem Response [...] Activity: as tolerated. Follow Up Appointments: Dr. Chowdhury in 1 to 2 weeks. Condition at time of discharge: Good Weight Ounces: 5.24 (oz) Bilirubin Level: 1.3 Congenital Heart Disease Screening Result: Pass Good Plan of Care Discharge Date 09/16/14 10:15pm Disposition 02 TO OBS [facility] Condition at Discharge Improved Instructions/Education Provided Coronary Artery Disease DI for Chest Pain Prescriptions See Medications Section Referrals CARLOS TUBBS Functional Status Query Response Date Recorded Physical Hygiene Self September 27, 2014 11:23am Disabilities Hearing Visual January 12, 2014 11:55am Devices Used Cane September 27, 2014 11:23am Dressing Self September 27, 2014 11:23am Ambulation Self January 12, 2014 11:55am Diet Self September 27, 2014 11:23am Mental Status Alert Forgetful January 12, 2014 11:55am Disabilities Hearing Visual January 12, 2014 11:55am Devices Used Cane September 27, 2014 11:23am Physical Hygiene Self September 27, 2014 11:23am Dressing Self September 27, 2014 11:23am Ambulation Self January 12, 2014 11:55am Diet Self September 27, 2014 11:23am Allergies, Adverse Reactions, Alerts Allergen Type Severity [...] Vital Signs Vital Response Date/Time Temperature (Fahrenheit) 96.9 deg F (96.8 - 99.1) Temperature (Calculated Celsius) 36.04386 degrees C (36.0 - 37.3) Pulse Rate (adult) 96 bpm (60 - 100) Respiratory Rate 18 breaths/min (10 - 20) Oxygen Delivery Method Room Air Fraction of Inspired Oxygen (FIO2) 99 % Height 5 ft 10 in Weight 193 lb Body Mass Index 27.0 kg/m^2 Results [...] 60 U/L N 30-110 Anion Gap September 27, 2014 4:53am 12 MEQ/L N 5-15 Anisocytosis August 25, 2013 [...] 15 PG/ML L 15-100 BUN/Creatinine Ratio September 27, 2014 4:53am 8 RATIO N 6-26 Bacterial Antigen Specimen Source March 16, 2011 10:52pm N - Band Neutrophils # October 12, 2013 10:00am 0.8 T/MM3 - Band Neutrophils % October 12, 2013 10:00am 6.0 % N 0-6 Basophils # (Auto) September 27, 2014 4:53am 0.0 T/MM3 N 0-0.2 Basophils # (Manual) December 07, 2011 10:21am 0.1 T/MM3 N 0-0.2 Basophils % (Manual) December 07, 2011 10:21am 1.0 % N 0-2 Basophils (%) (Auto) September 27, 2014 4:53am 0.6 % N 0-2 Blood Urea Nitrogen September 27, 2014 4:53am 8.0 MG/DL L 9-20 C-Reactive Protein September 18, 2013 5:25am [...] 9 /MM3 H 0-5 Calcium Level September 27, 2014 4:53am 8.6 MG/DL DN 8.4-10.2 Calculated Osmolality September 27, 2014 4:53am 274 MOSM/KG N 261-280 Carbon Dioxide Level September 27, 2014 4:53am 25 MEQ/L N 22-30 Chemistry Specimen Hemolysis September 27, 2014 4:53am < 15 0-25 0-25: No Hemolysis.26-70: Slight [...] Phenytoin. Recommend specimen recollection. Chloride Level September 27, 2014 4:53am 107 MEQ/L N 98-107 Cholesterol Level October 12, 2013 10:00am 177 MG/DL N 132-199 Cholesterol/HDL Ratio October 12, 2013 10:00am 2.8 RATIO N 0-5.0 Conjugated Bilirubin August 05, 2012 1:53pm 0.00 MG/DL N 0.00-0.30 Creatine Kinase MB December 18, 2012 6:50am 0.6 NG/ML N 0-3.4 Creatinine September 27, 2014 4:53am 1.0 MG/DL DN 0.8-1.5 D-Dimer September 16, 2014 12:29pm 274 NG/ML H 0-230 <230 NG/ML D-DU= PRESUMPTIVE NEGATIVE FOR PE OR DVT>230 NG/ML D-DU=ADDITIONAL EVAL FOR PE OR DVT RECOMMENDED Eosinophils # (Auto) September 27, 2014 4:53am 0.3 T/MM3 N 0-0.5 Eosinophils # (Manual) August 25, 2013 9:35am 0.2 T/MM3 N 0-0.5 Eosinophils % (Manual) August 25, 2013 9:35am 2.0 % N 0-4 Eosinophils (%) (Auto) September 27, 2014 4:53am 5.2 % H 0-4 Erythrocyte Sedimentation Rate September 18, 2013 5:25am 23 MM/HR H 0-15 Free Thyroxine December 17, 2012 7:58pm 1.07 NG/DL N 0.78-2.19 COMMENT ON BLOOD IN LAB Globulin September 16, 2014 12:29pm 3.2 G/DL N 2.4-3.6 Glomerular Filtration Rate Calc September 27, 2014 4:53am 80 - Glucometer March 16, 2011 9:03pm 170 mg/dL H 75-110 Glucose Level September 27, 2014 4:53am 86 MG/DL N 75-110 Group A Streptococcus Screen December 16, 2012 12:50pm Negative - Strep culture confirmation to follow Group B Streptococcus Antigen March 16, 2011 10:52pm Negative - HDL Cholesterol Direct October 12, 2013 10:00am 63 MG/DL H 40-60 Hematocrit September 27, 2014 4:53am 40.2 % L 41-53 Hemoglobin September 27, 2014 4:53am 13.5 GM/DL N 13.5-17.5 Hemoglobin A1c September 18, 2013 5:25am 5.4 % L 6-7 <6.0 NON-DIABETIC RANGE6.0-7.0 ADA THERAPEUTIC RANGE >7.0 ACTION SUGGESTED Icterus Index September 27, 2014 4:53am < 2 0-7 Immature Granulocyte # (Auto) September 27, 2014 4:53am 0.00 T/MM3 N 0.00- 0.03 Immature Granulocyte % (Auto) September 27, 2014 4:53am 0.0 % N 0.0-0.5 Immunoglobulin A September 17, [...] U/L N 23-300 Lymphocytes # (Auto) September 27, 2014 4:53am 1.9 T/MM3 N 1-4.8 Lymphocytes # (Manual) October 12, 2013 10:00am 0.7 T/MM3 L 1-4.8 Lymphocytes % (Manual) October 12, 2013 10:00am 5.0 % L 23-45 Lymphocytes (%) (Auto) September 27, 2014 4:53am 36.3 % N 23-45 Magnesium Level September 16, 2014 12:29pm 2.0 MG/DL N 1.6-2.3 Mean Corpuscular Hemoglobin September 27, 2014 4:53am 29.7 UUG N 26-34 Mean Corpuscular Hemoglobin Concent September 27, 2014 4:53am 33.6 GM/DL N 31-37 Mean Corpuscular Volume September 27, 2014 4:53am 88.5 UM3 N 80-100 Mean Platelet Volume September 27, 2014 4:53am 11.1 UM3 N 9.4-12.4 Monocytes # (Auto) September 27, 2014 4:53am 0.6 T/MM3 N 0-0.8 Monocytes # (Manual) August 25, 2013 9:35am 0.5 T/MM3 N 0-0.8 Monocytes % (Manual) August 25, 2013 9:35am 6.0 % N 0-9.0 Monocytes (%) (Auto) September 27, 2014 4:53am 10.5 % H 0-9.0 N. meningitidis B/E. coli K1 March 16, 2011 10:52pm Negative - N. meningitidis C/W 135 March 16, 2011 10:52pm Negative - ES-Qya-N-Type Natriuretic Peptide September 16, 2014 12:29pm 231 PG/ML H 0- 175 Rule in cut points: <50 years old=450; 50-75 years old=900; >75 years old=1800; When utilizing ProBNP rule-in cut points, adjustment for impaired renal function is typically not required. Neisseria meningitidis A/Y Antigen March 16, 2011 10:52pm Negative - Neutrophils # (Auto) September 27, 2014 4:53am 2.5 T/MM3 N 1.8-7.7 Neutrophils # (Manual) October 12, 2013 10:00am 12.5 T/MM3 H 1.8-7.7 Neutrophils % (Manual) October 12, 2013 10:00am 89.0 % H 33-66 Neutrophils (%) (Auto) September 27, 2014 4:53am 47.4 % N 33-66 Oxygen Delivery Method (LAB) August 05, 2012 1:45pm Room air - Phosphorus Level September 18, 2013 5:25am 1.9 MG/DL L 2.5-4.5 Platelet Count September 27, 2014 4:53am 192 T/MM3 N 130-400 Potassium Level September 27, 2014 4:53am 3.7 MEQ/L N 3.6-5 Procalcitonin December 16, 2012 [...] FOR IMPLANTED VALVE RDW Standard Deviation September 27, 2014 4:53am 42.8 FL N 36.9-50.2 Reactive Lymphocytes # August 25, 2013 9:35am 0.2 T/MM3 H 0-0 Reactive Lymphocytes % August 25, 2013 9:35am 2.0 % H 0-0 Red Blood Count September 27, 2014 4:53am 4.54 M/MM3 N 4.50-5.90 Salicylates Level September 17, 2013 4:58pm < 1.0 MG/DL L 2-20 Sodium Level September 27, 2014 4:53am 144 MEQ/L N 134-144 Stool Occult Blood December [...] 6:00pm < 0.012 ng/ml 0-0.12 Turbidity September 27, 2014 4:53am < 20 0-20 Unconjugated Bilirubin August 05, [...] Has specimen been collected/obtained? Y Urine Specific [place] September 16, 2014 1:16pm <=1.005 L - [...] MMOL/L N 0.6-2.2 White Blood Count September 27, 2014 4:53am 5.2 T/MM3 DN 4.5-11.0 Blood Culture Blood September 17, 2013 8:35pm NO GROWTH AFTER 5 DAYS Gram Stain Cerebral Spinal Fluid March 16, 2011 10:52pm Gram Stain Ear Canal-Right May 31, 2011 9:07am Gram Stain Sputum-Expectorated Sputum December 16, 2012 3:33pm Urine Culture Urine, Voided-Not Cc-Midstream September 18, 2013 12:05am Name: DANIA PETERSEN II Unit #: [id number] : [id number] Sex: M Loc / Svc: ED DOS: 09/16/14 Signed Report #: [id number] DIAGNOSTIC IMAGING REPORT TYPE OF EXAM: CHEST [...] Status Date Provider(s) ASSAY OF CREATININE completed 08/24/14 ROUTINE VENIPUNCTURE completed 09/16/14 CHEST X-RAY 1 VIEW FRONTAL completed 09/16/14 COMPREHEN METABOLIC PANEL completed 09/16/14 URINALYSIS AUTO W/O SCOPE completed 09/16/14 ASSAY OF MAGNESIUM completed 09/16/14 ASSAY OF NATRIURETIC PEPTIDE completed 09/16/14 ASSAY OF TROPONIN QUANT completed 09/16/14 ASSAY OF TROPONIN QUANT completed 09/16/14 COMPLETE CBC W/AUTO DIFF WBC completed 09/16/14 FIBRIN DEGRADATION QUANT completed 09/16/14 PROTHROMBIN TIME completed 09/16/14 THROMBOPLASTIN TIME PARTIAL completed 09/16/14 ELECTROCARDIOGRAM TRACING completed 09/16/14 AIRWAY INHALATION TREATMENT completed 09/16/14 THER/PROPH/DIAG INJ IV PUSH completed 09/16/14 EMERGENCY DEPT VISIT completed 09/16/14 [id number] ITEM OR SERVICE completed 09/16/14 [id number] ITEM OR SERVICE completed 09/16/14 [id number] ITEM OR SERVICE completed 09/16/14 [id number] ITEM OR SERVICE completed 09/16/14 [id number] ITEM OR SERVICE completed 09/16/14 [id number] ITEM OR SERVICE completed 09/16/14 [id number] ITEM OR SERVICE completed 09/16/14 [id number] ITEM OR SERVICE completed 09/16/14 [id number] ITEM OR SERVICE completed 09/16/14 [id number]"HOSPITAL OBSERVATION SERVICE, PER HOUR" completed 09/16/14 [id number]"HOSPITAL OBSERVATION SERVICE, PER HOUR" completed 09/16/14 [id number]"INJECTION, FENTANYL CITRATE, 0.1 MG" completed 09/16/14 [id number]"INJECTION, FENTANYL CITRATE, 0.1 MG" completed 09/16/14 Encounters Encounter Location Date/Time Departed Clinic [facility] 09/26/14 1:06pm Discharged Inpatient [facility] 09/16/14 2:39pm Registered Clinic [facility] 08/24/14 12:52pm Recent Diagnosis CAD (coronary artery disease)
[2016-11-28 10:53] VITALS: Ht 177.8 cm; Wt 80.0 kg
[2016-11-28] MEDS ORDERED: SILV400C TOP (11:20)
--- NOTE | 2016-11-28 12:00 | ERPDOC ---
Departure Disposition Decision Date: November 28, 2016 Disposition Decision Time: 14:33 Disposition: 01 DISCHARGED HOME, SELF-CARE Impression Impression Impression: Primary Impression: Seizure disorder Severity: Moderate Condition: Stable Seen By: Physician only Referrals: CARLOS TUBBS MD (Family) Patient Instructions: New-Onset Seizure in Adults (ED) Problems/Meds/Labs Reviewed?: Yes Medications reviewed and manag: Yes Additional Instructions: Keppra 500 mg twice daily. Please check in with your primary care provider for neurology evaluation. Follow up care ordered?: Yes Mental Status: Alert, Oriented Scripts Levetiracetam (Keppra) 500 Mg Tablet 1 TAB PO BID, #60 TAB 5 Refills Prov: DANIA LEGGETT MD 11/28/16 HPI - General Medical General Chief Complaint: Seizure Stated Complaint: POST SEIZURE Time Seen by Provider: 11:58 HPI - General Medical Initial Comments 51-year-old gentleman with dizziness and seizure-like activity. This happened several times. He was previously diagnosed with cholesteatoma has had 2 of them removed. He has a third developing and is worried that it is causing this problem. He has loss of energy, dizziness, confusion, seizure-like activity. He states that he can't remember much of what happens, has confusion after a concludes. Allergies: Coded Allergies: morphine (Verified Allergy, Unknown, RASH, 12/05/15) oxycodone HCl (Verified Allergy, Unknown, RASH, 12/05/15) tramadol (Verified Allergy, Unknown, RASH, 12/05/15) Past History Past Medical History Metabolic: cancer, hypercholesterolemia, hypertension, other ENMT: other Cardiac: CAD, other Respiratory: COPD, asthma GI: GERD, ulcers Male: kidney stones Neurological: headaches Musculoskeletal: back pain Hematologic: other Psychological: bipolar, depression Surgical History General: appendix, back, hernia, other, tonsils Family History Family PMH: FOUND: COPD, alcohol abuse, cancer, diabetes, hypertension Vaccines Hx Influenza Vaccination: Yes (APR 2015) Hx Pneumococcal Vaccination: Yes (MAY 25) Hx Tetanus Diptheria: Yes Hx Tetanus, Diptheria, Pertuss: Yes Social History Substance Use Type: does not use Alcohol Intake: daily Sexuality: female partner Physical Exam General Vitals and Pain First Documented Vital Signs Date Time Temp Pulse Resp B/P Pulse Ox O2 Delivery O2 Flow Rate FiO2 11/28/16 10:53 97.9 117 22 99/55 93 Nasal Cannula 2.00 Weight: Kilograms: 80.000 Height (feet): 5 Height (inches): 10.00 Triage Pain Scale: Progress Results/Orders Orders Procedure Category Date Status Time Iv Lock (Ed Only) EDM 11/28/16 Transmitted 12:00 Cbc W/Auto LAB 11/28/16 Complete Diff-Reflex Manual 12:00 Cmp - Comprehensive LAB 11/28/16 Complete Metabolic 12:00 Drug Screen LAB 11/28/16 Complete [place] [facility] Prolactin LAB 11/28/16 Complete 12:00 Ct Head W/O Contrast CT 11/28/16 Resulted 12:00 UA, LAB 11/28/16 Complete Dip&Micro(Complete) & 13:28 Lab Results Laboratory Tests Test 11/28/16 11:58 11/28/16 13:28 White Blood Count 11.0T/MM3 Red Blood Count 5.56M/MM3 Hemoglobin 16.3GM/DL Hematocrit 51.1% Mean Corpuscular Volume 91.9UM3 Mean Corpuscular Hemoglobin 29.3UUG Mean Corpuscular Hemoglobin Concent 31.9GM/DL RDW Standard Deviation 47.4FL Platelet Count 355T/MM3 Mean Platelet Volume 10.9UM3 Immature Granulocyte % (Auto) 0.4% Neutrophils (%) (Auto) 59.9% Lymphocytes (%) (Auto) 26.6% Monocytes (%) (Auto) 9.4% Eosinophils (%) (Auto) 3.4% Basophils (%) (Auto) 0.3% Absolute Immature Granulocyte (auto 0.04T/MM3 Absolute Neutrophils (auto) 6.6T/MM3 Absolute Lymphocytes (auto) 2.9T/MM3 Absolute Monocytes (auto) 1.0T/MM3 Absolute Eosinophils (auto) 0.4T/MM3 Absolute Basophils (auto) 0.0T/MM3 Turbidity < 20 Sodium Level 148MEQ/L Potassium Level 3.6MEQ/L Chloride Level 103MEQ/L Carbon Dioxide Level 8MEQ/L Anion Gap 37MEQ/L Blood Urea Nitrogen 11.0MG/DL Creatinine 1.6MG/DL Glomerular Filtration Rate Calc 46 BUN/Creatinine Ratio 7RATIO Glucose Level 203MG/DL Calculated Osmolality 289MOSM/KG Calcium Level 10.0MG/DL Total Bilirubin 0.50MG/DL Icterus Index < 2 Aspartate Amino Transf (AST/SGOT) 29U/L Alanine Aminotransferase (ALT/SGPT) 17U/L Alkaline Phosphatase 103U/L Total Protein 9.0G/DL Albumin 5.5G/DL Globulin 3.5G/DL Albumin/Globulin Ratio 1.6RATIO Prolactin 69.1NG/ML Chemistry Specimen Hemolysis < 15 Urine Collection Type Cleancatch-midstream Urine Color Yellow Urine Turbidity Sl cloudy Urine pH 5.5 Urine Specific [place] >=1.030 Urine Protein 2+ Urine Glucose (UA) Negative Urine Ketones Trace Urine Blood Trace-intact Urine Nitrite Negative Urine Bilirubin Negative Urine Urobilinogen 0.2EU/DL Urine Leukocyte Esterase Negative Urine RBC 0-1/HPF Urine WBC 3-5/HPF Urine Squamous Epithelial Cells 0-5 Urine Bacteria 1+ Urine Hyaline Casts 5-10/LPF Urine Culture Indicated Cult not indicated Urine Opiates Screen NegativeNG/ML Urine Oxycodone Screen NegativeNG/ML Urine Methadone Screen NegativeNG/ML Urine Propoxyphene Screen NegativeNG/ML Urine Barbiturates Screen NegativeNG/ML Urine Tricyclic Antidepressants PositiveNG/ML Urine Phencyclidine Screen NegativeNG/ML Urine Amphetamines Screen NegativeNG/ML Urine Methamphetamines Screen NegativeNG/ML Urine Benzodiazepines Screen PositiveNG/ML Urine Cocaine Screen NegativeNG/ML Urine Cannabinoids Screen NegativeNG/ML Urine Drug Screen Confirmation Sent out Urine Drug Screen Information Pending Progress Progress CT head is negative. Patient does have right otitis external with some bleeding noted. He may have abnormal growth within that canal. We'll put him on gentamicin optic drops and have him follow-up with his primary care provider. Prolactin was elevated significantly. With normal CT had an elevated prolactin after what appears to be a seizure, I am inclined to think that this was a neurologic seizure, symptoms are certainly appropriate. Start him on Keppra 500 mg and have him follow-up with his primary care provider and possibly neurology. No driving until seizures cleared. DANIA LEGGETT MD November 28, 2016 12:00
--- OUTSIDE RECORDS SUMMARY | 2016-11-28 12:08 | XMS REPORT | Continuity of Care Document ---
Author Author [facility] Organization [facility] Address Unknown Phone Unavailable Allergies Active Description Code Type Severity Reaction Onset Reported/Identified Relationship to Patient Clinical Status Yes acetaminophen NKMA N/A ITCHING 11/10/2013 Yes oxyCODONE NKMA N/A ITCHING 11/10/2013 Medications Problems Procedures Results Encounters ACCT No. Visit Date/Time Discharge Status Pt. Type Provider Facility Loc./Unit Complaint [id number] 11/22/2016 14:20:00 2016 23:59:00 DIS Outpatient Zacarias Woodson [facility] ENT TCPA RCK BLEEDING FROM EAR [id number] 05/19/2015 14:05:00 2014 23:59:00 DIS Outpatient Nidhi Higuera [facility] Audio Nidhi HAJI [id number] 01/04/2015 16:10:00 2014 23:59:00 DIS Outpatient Nidhi Higuera [facility] Audio Nidhi SAHU Charges
--- OUTSIDE RECORDS SUMMARY | 2016-11-28 12:08 | XMS REPORT | Continuity of Care Document ---
Author Author Mavis Enriquez Mavis Address Unknown Phone Unavailable Care Team Providers Care [employer] Pilot Name Role Phone [employer] Unavailable Unavailable Problems [...]
[2016-11-28 12:10] LABS: BASOPHILS % (AUTO) 0.3 % (0-2); EOSINOPHILS # (AUTO) 0.4 T/MM3 (0-0.5); EOSINOPHILS % (AUTO) 3.4 % (0-4); HCT - HEMATOCRIT 51.1 % (41-53); HGB - HEMOGLOBIN 16.3 GM/DL (13.5-17.5); IMMATURE GRANULOCYTE # (AUTO) 0.04 T/MM3 (0.00-0.03); IMMATURE GRANULOCYTE % (AUTO) 0.4 % (0.0-0.5); LYMPHOCYTES # (AUTO) 2.9 T/MM3 (1-4.8); LYMPHOCYTES % (AUTO) 26.6 % (23-45); MEAN CORPUSCULAR HGB 29.3 UUG (26-34); MEAN CORPUSCULAR HGB CONC(MCHC 31.9 GM/DL (31-37); MEAN CORPUSCULAR VOLUME 91.9 UM3 (80-100); MEAN PLATELET VOLUME 10.9 UM3 (9.4-12.4); MONOCYTES % (AUTO) 9.4 % (0-9.0); NEUTROPHILS #(AUTO)-ABSOLUTE 6.6 T/MM3 (1.8-7.7); NEUTROPHILS % (AUTO) 59.9 % (33-66); RED BLOOD COUNT 5.56 M/MM3 (4.50-5.90)
--- OUTSIDE RECORDS SUMMARY | 2016-11-28 12:11 | XMS REPORT | Continuity of Care Document ---
Author Author [facility] Organization [facility] Address Unknown Phone Unavailable Support Name Relationship Address Phone SHANNON WISE MD Caregiver [facility] [address] [place] [address] [phone] DENILSON ESPARZA MD Caregiver [address] [place] [address] [place] [phone] CARLOS TUBBS Caregiver [address] [place], [place] [address] ABEL PETERSEN Next Of Kin [address] [place], [place] [id number] Insurance Providers Payer Name Policy Number Subscriber Name Relationship Medicare [id number] Dania Petersen Ii 18 Self Medicaid [id number] Dania Petersen Ii Self Advance Directives Directive [...] 135 March 16, 2011 10:52pm Negative - RU-Lmw-D-Type Natriuretic Peptide September 16, 2014 12:29pm 231 [...] Has specimen been collected/obtained? Y Urine Specific [place] September 16, 2014 1:16pm <=1.005 L - [...] 12:05am Name: DANIA PETERSEN II Unit #: [id number] : 1965 Sex: M Loc / Svc: ED DOS: 09/16/14 Signed Report #: [id number] DIAGNOSTIC IMAGING REPORT TYPE OF EXAM: CHEST [...] 08/24/14 Encounters Encounter Location Date/Time Discharged Inpatient [facility] 09/16/14 2:39pm Registered Clinic [facility] 08/24/14 12:52pm Registered Clinic [facility] 06/22/14 12:29pm Recent Diagnosis Atypical chest pain Chest pain Chest pain CAD (coronary artery disease)
--- OUTSIDE RECORDS SUMMARY | 2016-11-28 12:13 | XMS REPORT | Continuity of Care Document ---
Author Author [facility] Organization [facility] Address Unknown Phone Unavailable Support Name Relationship Address Phone BETTYE NOGUERA DO Caregiver [facility] [address] [place] [address] CARLOS TUBBS Caregiver [address] [place], [place] [address] NEREYDA RAMOS MD Caregiver [address] [phone] JACY STEEN Next Of Kin Unknown [phone] Insurance Providers Payer Name Policy Number Subscriber Name Relationship Medicare [id number] Dania Petersen Ii 18 Self Medicaid [id number] Dania Petersen Ii 18 Self Advance Directives [...] F (96.8 - 99.1) Temperature (Calculated Celsius) 36.27036 degrees C (36.0 - 37.3) Pulse Rate [...] Has specimen been collected/obtained? Y Urine Specific [place] September 18, 2013 12:05am 1.015 - COMMENT [...] 29, 2013 8:52pm LAB TEST FORM REQUEST [id number] - HDL Cholesterol Direct October 12, 2013 [...] January 12, 2014 11:45am < 2 0-7 OQ-Gqj-G-Type Natriuretic Peptide January 12, 2014 11:45am 52 [...] Encounters Encounter Location Date/Time Departed Emergency Room [facility] 01/12/14 11:26am Registered Clinic [facility] 12/29/13 2:34pm Recent Diagnosis
--- OUTSIDE RECORDS SUMMARY | 2016-11-28 12:14 | XMS REPORT | Continuity of Care Document ---
Author Author [facility] Organization [facility] Address Unknown Phone Unavailable Support Name Relationship Address Phone SHANNON CHOWDHURY MD Caregiver [facility] [address] [place] [address] , [address] [place] [phone] CARLOS TUBBS Caregiver [address] [place] [address] ABEL PETERSEN Next Of Kin [address] [place] [address] Insurance Providers Payer Name Policy Number Subscriber Name Relationship Medicare [id number] Dania Petersen Ii 18 Self Medicaid [id number] Dania Petersen Ii 18 Self Advance Directives [...] Date 09/16/14 10:15pm Disposition 02 [place] OBS [facility] [place] Improved Instructions/Education Provided Coronary [...] F (96.8 - 99.1) Temperature (Calculated Celsius) 36.33176 degrees C (36.0 - 37.3) Pulse Rate [...] 135 March 16, 2011 10:52pm Negative - SZ-Owp-Q-Type Natriuretic Peptide September 16, 2014 12:29pm 231 [...] Has specimen been collected/obtained? Y Urine Specific [place] September 16, 2014 1:16pm <=1.005 L - [...] 12:05am Name: DANIA PETERSEN II Unit #: [id number] : 1965 Sex: M Loc / Svc: ED DOS: 09/16/14 Signed Report #: [id number] DIAGNOSTIC IMAGING REPORT TYPE OF EXAM: CHEST [...] completed 09/16/14 EMERGENCY DEPT VISIT completed 09/16/14 [id number] ITEM OR SERVICE completed 09/16/14 [id number] ITEM OR SERVICE completed 09/16/14 [id number] ITEM OR SERVICE completed 09/16/14 [id number] ITEM OR SERVICE completed 09/16/14 [id number] ITEM OR SERVICE completed 09/16/14 [id number] ITEM OR SERVICE completed 09/16/14 [id number] ITEM OR SERVICE completed 09/16/14 [id number] ITEM OR SERVICE completed 09/16/14 [id number] ITEM OR SERVICE completed 09/16/14 [id number]"HOSPITAL OBSERVATION SERVICE, PER HOUR" completed 09/16/14 [id number]"HOSPITAL OBSERVATION SERVICE, PER HOUR" completed 09/16/14 [id number]"INJECTION, FENTANYL CITRATE, 0.1 MG" completed 09/16/14 [id number]"INJECTION, FENTANYL CITRATE, 0.1 MG" completed 09/16/14 Encounters Encounter Location Date/Time Departed Clinic [facility] 09/26/14 1:06pm Discharged Inpatient [facility] 09/16/14 2:39pm Registered Clinic [facility] 08/24/14 12:52pm Recent Diagnosis CAD (coronary artery disease)
[2016-11-28 12:18] LABS: ALBUMIN 5.5 G/DL (3.5-5.0); ALBUMIN/GLOBULIN RATIO 1.6 RATIO (1.1-2.2); ALKALINE PHOSPHATASE 103 U/L (38-126); ALT (SGPT) 17 U/L (21-72); ANION GAP 37 MEQ/L (5-15); AST (SGOT) 29 U/L (17-59); BUN/CREATININE RATIO 7 RATIO (6-26); CHLORIDE 103 MEQ/L (98-107); CREATININE 1.6 MG/DL (0.8-1.5); GLOMERULAR FILTRATION RATE 46; GLUCOSE 203 MG/DL (75-110); POTASSIUM 3.6 MEQ/L (3.6-5); SODIUM 148 MEQ/L (134-144)
[2016-11-28 12:32] LABS: CO2 - CARBON DIOXIDE 8 MEQ/L (22-30)
[2016-11-28 12:35] LABS: PROLACTIN 69.1 NG/ML
--- NOTE | 2016-11-28 12:43 | DI ---
Indication: ITS.REASON: cholesteatoma PROCEDURE: CT HEAD W/O CONTRAST: Encounter: Initial Comparison: Head CT dated March 22, 2016 Technique: Axial CT images through the head were performed without contrast. Iterative Reconstruction dose reducing technique was utilized. FINDINGS: The ventricles are of normal size, shape, and contour for the patient's age. The brainstem, cerebellum, and cerebral hemispheres have a normal morphology and CT attenuation. There is no evidence of midline displacement. No hemorrhage, signs of acute territorial stroke, mass effect, mass lesions, or edema is evident. The visualized portions of the skull base, midface, and calvarium demonstrate no abnormality. Mucus retention cyst and mucosal thickening in the maxillary sinuses. Postoperative changes in the right mastoid with a stable appearance from the comparison study. Prior orthopedic surgery in the left zygomatic arch. IMPRESSION: No acute intracranial abnormality or hemorrhage. Stable head CT. .
--- NOTE | 2016-11-28 13:37 | NUR ---
Nursing Progress Note: 1100: Patient was extremely diaphortic on arrival changed out of saturated clothing to hospital gown 1145: ER Physician at bedside 1200: Orders recieved 1210: Lab from EMS draw was taken to lab 1230: Patient to CT on O2 1250: attempted to obtain urine sample without success- provided water to drink 1315: UA and UDS obtain at bedside with LAB
[2016-11-28 13:38] LABS: BLOOD, URINE TRACE-INTACT (NEGATIVE); COLOR,URINE YELLOW (YELLOW); LEUKOCYTE ESTERASE ,URINE NEGATIVE (NEGATIVE); NITRITE,URINE NEGATIVE (NEGATIVE); UROBILINOGEN,URINE 0.2 EU/DL (NORMAL)
[2016-11-28 13:48] LABS: BACTERIA,URINE 1+ (NEGATIVE); RBC,URINE 0-1 /HPF (0-3); SQUAMOUS EPITHELIAL CELL,UR 0-5
[2016-11-28 13:49] LABS: AMPHETAMINE SCREEN,URINE NEGATIVE; BARBITURATE SCREEN,URINE NEGATIVE; BENZODIAZEPINES SCREEN,URINE POSITIVE; CANNABINOID SCREEN,URINE NEGATIVE; COCAINE SCREEN,URINE NEGATIVE; METHADONE SCREEN, URINE NEGATIVE; METHAMPHETAMINE SCREEN, URINE NEGATIVE; OPIATE SCREEN,URINE NEGATIVE; PHENCYCLIDINE SCREEN,URINE NEGATIVE; TRICYCLIC ANTIDEPRESSANT,URINE POSITIVE
--- NOTE | 2016-11-28 14:25 | NUR ---
Nursing Progress note: 1405: In room with physician reviewing results and gameplan for dismissal. 1410: IV discontiuned, cath in tact and bandage in place 1415: VS obtained. Patient up to get dressed without assistance.
[2016-11-28] MEDS ORDERED: LEVE500T9 PO (14:34)
[2016-11-28 14:58] VITALS: BP 129/78; PULSE 84; RESP 22; TEMP 98.7; O2SAT 98
== END 2016-11-28 14:40 | disposition home or self-care (01) ==
LOC: ED 10:44
DX: R56.9 Unspecified convulsions (principal); H60.321 Hemorrhagic otitis externa, right ear
CPT/HCPCS: 80053; 80306; 81001; 84146; 85025

== ENCOUNTER 2017-02-17 19:14 | Inpatient (IN) ==
[2017-02-17] MEDS ORDERED: ROCURONIUM 50 MG/5 ML INJECTION IVP ONE (19:27)
[2017-02-17] MEDS ORDERED: NS 1,000 ML IV ONE (19:38)
--- NOTE | 2017-02-17 19:38 | Emergency Department Report ---
Overdose HPI - General Stated Complaint: Unresponsive Time Seen by Provider: 02/17/17 19:36 Source: EMS, other Mode of arrival: EMS Limitations: altered mental status - History of Present Illness HPI Narrative: 51yo man presents to the ER by EMS for evaluation. Pt was found at [place] today. The people with him (near him?) said that he took 'a bunch' of seroquel last night to sleep. He did not leave his tent today; they called EMS when they found him foaming at the mouth and 'possibly having a seizure'. When EMS found pt, he was unresponsive. Has had spontaneous respirations with foamy/frothy discharge from his mouth. GCS has been 3 since responding to the call. Pt has a long h/o possibly accidental overdoses in the past. Has a h/o brain tumor and takes seizure medications. A narcan auto-injector was found in his bag. Unclear whether pt overdosed on seroquel, overdosed on narcotics, had a seizure, or is unresponsive for some other reason. MD complaint: other (Unknown intent to overdose; pt took 'a bunch' of seroquel last night.) Intent: unknown How Overdose Was Discovered: other Context: Accidental Overdose: uncertain what happened Associated symptoms: other (Bipolar d/o) Treatments Prior to Arrival: oxygen, other (CPAP) - Related Data Home Medications Medication Instructions Recorded Confirmed Duloxetine HCl [Cymbalta] 60 mg PO BID #0 11/05/11 02/17/17 Omeprazole 40 mg PO DAILY #0 01/31/12 02/17/17 Atorvastatin Calcium 40 mg PO HS #0 12/17/12 02/17/17 EPINEPHrine Pen [Epipen] 0.3 mg IM O PRN #0 12/17/12 02/17/17 Gemfibrozil 600 mg PO BID #0 12/17/12 02/17/17 Immune Globulin,Gamma (Igg) 10 gm SQ Q2W #0 12/17/12 02/17/17 (Hizentra) Albuterol Sulfate [Proair Hfa] 1 - 2 puff IH Q4-6H PRN #0 01/12/13 02/17/17 Arformoterol Neb [Brovana Neb] 1 vial IH QID PRN #0 09/17/13 02/17/17 Lisinopril 20 mg PO DAILY #0 09/16/14 02/17/17 Ofloxacin 0.3% *Eye* Drops 1 - 2 drop EACH EAR BID #0 09/16/14 02/17/17 [Ocuflox] Quetiapine Fumarate [Seroquel Xr] 400 mg PO HS #0 09/16/14 02/17/17 ALPRAZolam [Alprazolam] 2 mg PO QID PRN #0 03/23/15 02/17/17 Aspirin [Aspirin EC] 325 mg PO DAILY #0 03/23/15 02/17/17 Clopidogrel Bisulfate [Clopidogrel] 75 mg PO DAILY #0 03/23/15 02/17/17 Metoclopramide HCl 10 mg PO Q6H PRN #0 03/23/15 02/17/17 Metoprolol Tartrate 50 mg PO BIDWM #0 11/28/15 02/17/17 Naloxone HCl [Evzio] 1 unit IM O PRN #0 11/28/15 02/17/17 Hydrocodone/Acetaminophen 1 tab PO Q4HR PRN #0 12/05/15 02/17/17 [Hydrocodon-Acetaminophn 10-325] Cyclobenzaprine HCl 10 mg PO TID PRN #0 03/22/16 02/17/17 Silver Sulfadiazine 1 applic TOP DAILY #0 11/28/16 02/17/17 Gabapentin [Neurontin] 600 mg PO TID 02/17/17 02/17/17 Naloxegol Oxalate [Movantik] 25 mg PO DAILY 02/17/17 02/17/17 Previous Rx's Medication Instructions Recorded Levetiracetam [Keppra] 1 tab PO BID #60 tab 11/28/16 Allergies Allergy/AdvReac Type Severity Reaction Status Date / Time morphine Allergy Unknown RASH Verified 12/05/15 15:03 tramadol Allergy Unknown RASH Verified 12/05/15 15:03 oxycodone HCl Allergy Unknown RASH Uncoded 12/05/15 15:03 Review of Systems Limitations: ROS unobtainable due to patient's medical condition PFSH Patient Stated Medical History Coronary Artery Disease Yes Other Cardiology Yes: STENTS 2012,11/29/15 Asthma Yes Chronic Obstructive Pulmonary Yes Disease (COPD) Gastroesophageal Reflux Yes Disease Ulcer Yes Hx Kidney Stones Yes Other Hematologic Yes: COMBINED VARIABLE IMMUNODEFICIENCY DISORDER Other Infectious Yes: IGG INFUSIONS-SEE'S DR BECKWITH Bipolar Disorder Yes Depression Yes Schizophrenia Yes: SON THINKS HE WAS RECENTLY DX WITH THIS Medical History Updates: Bipolar d/o. Seizures. Brain tumor. Chronic pain. GERDHL. HTN. CAD. COPD. Asthma. GERD. Gastric ulcers. Kidney stones. SAHU. Chronic back pain. Bipolar d/o. Brain tumor. HTN Physical Exam - Limitations Limitations: altered mental status - General General appearance: obtunded - Head Head exam: atraumatic, normocephalic, normal inspection - Eye Eye exam: Present: normal appearance, PERRL, EOMI, other. Absent: scleral icterus - ENT ENT exam: Present: normal exam, normal oropharynx, mucous membranes moist ( Copious frothy fluid in OP), TM's normal bilaterally - Neck Neck exam: Present: normal inspection, full ROM, trachea midline. Absent: tenderness, lymphadenopathy - Chest Chest inspection: Present: normal inspection, symmetric chest wall rise. Absent : tenderness, rash - Respiratory Respiratory exam: Present: crackles (Throughout, L>>R). Absent: normal lung sounds bilaterally, respiratory distress, wheezes, prolonged expiratory phase - Cardiovascular Cardiovascular exam: Present: normal rhythm, tachycardia, normal heart sounds, + S1, +S2. Absent: regular rate, systolic murmur, diastolic murmur, +S3, +S4 - Abdominal Exam Abdominal exam: Present: soft, normal bowel sounds. Absent: distention, guarding, rebound, psoas sign, obturator sign, Bowden's sign, hernia - Extremities Exam Extremities exam: Present: normal capillary refill. Absent: normal inspection ( Abrasions) - Back Exam Back exam: Present: normal inspection - Skin Skin exam: Present: warm, dry, intact, other (Diffuse abrasions). Absent: rash - Neurological Exam Neurological exam: Absent: alert, oriented X3 - Psychiatric Psychiatric exam: Absent: normal affect Course - Consultations Consultation #1: [place] Telemed: Recommend head CT. If short range air defense [employer] can perform bronch +/- VATS, can put in locally. If not recommend txfr to tertiary care. Time: 21:17 Consultation #2: Expert Medical Writer: Time: 21:43 Vital Signs Temperature 97.9 F 02/17/17 19:14 Pulse Rate 122 H 02/17/17 19:14 Respiratory Rate 26 H 02/17/17 19:14 Blood Pressure 116/59 02/17/17 19:14 Pulse Oximetry 94 02/17/17 19:14 Temperature 97.9 F 02/17/17 19:14 Pulse Rate 104 H 02/18/17 05:08 Respiratory Rate 20 02/18/17 05:08 Blood Pressure 131/81 02/18/17 03:30 Pulse Oximetry 99 02/18/17 05:08 Procedures - Intubation Time out performed: Yes paralytic: Rocuronium Mg Given: 87 Laryngoscope: Valentin (2) ET Tube Size: 7.5 ET Tube Uncuffed: Yes Tube Secured Depth (cm): 25 Tube Secured Location: lips Tube Placement Confirmation: visualized tube passing through cords, equal breath sounds bilaterally, no breath sounds over epigastrium, confirmation by capnometry Patient Tolerated Procedure: well Intubation Complications: none Overdose - MDM Narrative Medical decision making narrative: Pt remains obtunded, intubated, and unresponsive. Likely neoplastic mass vs invasive fungal infection. Unclear what caused pts current status. Pt is stable at this time. Will contact hospitalist for local ICU admission vs txfr to tertiary care facility. - Differential Diagnosis Likely: cocaine intoxication, suicide attempt by multiple drug overdose, poisoning by opiate or related narcotic, drug overdose, accidental drug ingestion - Medical Records Attestation: I reviewed the patient's medical records. - Lab Data Attestation: I reviewed the patient's lab results. Result diagrams: 02/17/17 19:29 02/18/17 01:37 Lab Results 02/17/17 02/17/17 02/17/17 Range/Units 19:29 19:29 19:29 WBC 11.5 H (4.5-11.0) T/MM3 RBC 4.32 L (4.50-5.90) M/MM3 Hgb 13.1 L (13.5-17.5) GM/DL Hct 39.2 L (41-53) % MCV 90.7 (80-100) UM3 MCH 30.3 (26-34) UUG MCHC 33.4 (31-37) GM/DL RDW Std Deviation 43.6 (36.9-50.2) FL Plt Count 241 (130-400) T/MM3 MPV 10.2 (9.4-12.4) UM3 Immature Gran % (Auto) 0.2 (0.0-0.5) % Neut % (Auto) 82.3 H (33-66) % Lymph % (Auto) 7.2 L (23-45) % Emmons % (Auto) 9.8 H (0-9.0) % Eos % (Auto) 0.4 (0-4) % Baso % (Auto) 0.1 (0-2) % Neut # 9.4 H (1.8-7.7) T/MM3 Lymph # 0.8 L (1-4.8) T/MM3 Emmons # 1.1 H (0-0.8) T/MM3 Eos # 0.1 (0-0.5) T/MM3 Baso # 0.0 (0-0.2) T/MM3 Abs Immat Gran (auto) 0.02 (0.00-0.03) T/MM3 ABG pH (7.350-7.450) ABG pCO2 (34-45) MMHG ABG pO2 (80-100) MMHG ABG HCO3 (22-26) MEQ/L ABG Total CO2 (23-27) MEQ/L ABG O2 Saturation (95.0-98.0) % ABG Base Excess (-2.0-2.0) MMOL/L O2 Delivery Method FiO2 % Turbidity < 20 (0-20) Sodium 143 (134-144) MEQ/L Potassium 3.7 (3.6-5) MEQ/L Chloride 107 (98-107) MEQ/L Carbon Dioxide 24 (22-30) MEQ/L Anion Gap 12 (5-15) MEQ/L BUN 20.0 (9-20) MG/DL Creatinine 1.4 (0.8-1.5) MG/DL GFR Calculation 54 BUN/Creatinine Ratio 14 (6-26) RATIO Glucose 109 (75-110) MG/DL Calculated Osmolality 279 (261-280) MOSM/KG Calcium 8.7 (8.4-10.2) MG/DL Total Bilirubin 0.70 (0.20-1.30) MG/DL Icterus Index < 2 (0-7) AST 49 (17-59) U/L ALT 26 (21-72) U/L Alkaline Phosphatase 94 (38-126) U/L Creatine Kinase 3005 H (55-170) U/L Troponin I < 0.012 (0-0.12) ng/ml Total Protein 6.7 (6.3-8.2) G/DL Albumin 4.1 (3.5-5.0) G/DL Globulin 2.6 (2.4-3.6) G/DL Albumin/Globulin Ratio 1.6 (1.1-2.2) RATIO Lipase 36 (23-300) U/L Plasma Lactate 0.9 (0.6-2.2) MMOL/L Specimen Hemolysis < 15 (0-25) Ur Collection Type Urine Color (YELLOW) Urine Clarity Urine pH (5.0-8.0) Ur Specific Colony (1.015-1.025) Urine Protein (NEGATIVE) Urine Glucose (UA) (NEGATIVE) Urine Ketones (NEGATIVE) Urine Occult Blood (NEGATIVE) Urine Nitrate (NEGATIVE) Urine Bilirubin (NEGATIVE) Urine Urobilinogen (NORMAL) EU/DL Ur Leukocyte Esterase (NEGATIVE) Urinalysis Comment Salicylates < 1.0 L (2-20) MG/DL Urine Opiates Screen Negative ng/mL Ur Oxycodone Screen Negative ng/mL Urine Methadone Screen Negative ng/mL Ur Propoxyphene Screen Negative ng/mL Acetaminophen < 10 L (10-30) UG/ML Ur Barbiturates Screen Negative ng/mL Valproic Acid < 10.0 L (50-120) UG/ML U Tricyclic Antidepress Positive ng/mL Ur Phencyclidine Scrn Negative ng/mL Ur Amphetamines Screen Positive ng/mL U Methamphetamines Scrn Positive ng/mL U Benzodiazepines Scrn Positive ng/mL Urine Cocaine Screen Negative ng/mL U Cannabinoids Screen Negative ng/mL Ur Drug Screen Confirm Alcohol, Quantitative <10 (<10) MG/DL 02/17/17 02/17/17 02/17/17 Range/Units 19:29 19:35 19:50 WBC (4.5-11.0) T/MM3 RBC (4.50-5.90) M/MM3 Hgb (13.5-17.5) GM/DL Hct (41-53) % MCV (80-100) UM3 MCH (26-34) UUG MCHC (31-37) GM/DL RDW Std Deviation (36.9-50.2) FL Plt Count (130-400) T/MM3 MPV (9.4-12.4) UM3 Immature Gran % (Auto) (0.0-0.5) % Neut % (Auto) (33-66) % Lymph % (Auto) (23-45) % Emmons % (Auto) (0-9.0) % Eos % (Auto) (0-4) % Baso % (Auto) (0-2) % Neut # (1.8-7.7) T/MM3 Lymph # (1-4.8) T/MM3 Emmons # (0-0.8) T/MM3 Eos # (0-0.5) T/MM3 Baso # (0-0.2) T/MM3 Abs Immat Gran (auto) (0.00-0.03) T/MM3 ABG pH 7.300 L (7.350-7.450) ABG pCO2 51 H (34-45) MMHG ABG pO2 153 H (80-100) MMHG ABG HCO3 25 (22-26) MEQ/L ABG Total CO2 26.7 (23-27) MEQ/L ABG O2 Saturation 99.0 H (95.0-98.0) % ABG Base Excess -1.9 (-2.0-2.0) MMOL/L O2 Delivery Method Vent, adult % FiO2 % 100 Turbidity (0-20) Sodium (134-144) MEQ/L Potassium (3.6-5) MEQ/L Chloride (98-107) MEQ/L Carbon Dioxide (22-30) MEQ/L Anion Gap (5-15) MEQ/L BUN (9-20) MG/DL Creatinine (0.8-1.5) MG/DL GFR Calculation BUN/Creatinine Ratio (6-26) RATIO Glucose (75-110) MG/DL Calculated Osmolality (261-280) MOSM/KG Calcium (8.4-10.2) MG/DL Total Bilirubin (0.20-1.30) MG/DL Icterus Index (0-7) AST (17-59) U/L ALT (21-72) U/L Alkaline Phosphatase (38-126) U/L Creatine Kinase (55-170) U/L Troponin I (0-0.12) ng/ml Total Protein (6.3-8.2) G/DL Albumin (3.5-5.0) G/DL Globulin (2.4-3.6) G/DL Albumin/Globulin Ratio (1.1-2.2) RATIO Lipase (23-300) U/L Plasma Lactate (0.6-2.2) MMOL/L Specimen Hemolysis (0-25) Ur Collection Type Urine, moss Urine Color Yellow (YELLOW) Urine Clarity Clear Urine pH 5.5 (5.0-8.0) Ur Specific Colony 1.015 (1.015-1.025) Urine Protein Negative (NEGATIVE) Urine Glucose (UA) Negative (NEGATIVE) Urine Ketones Negative (NEGATIVE) Urine Occult Blood Negative (NEGATIVE) Urine Nitrate Negative (NEGATIVE) Urine Bilirubin Negative (NEGATIVE) Urine Urobilinogen 0.2 (NORMAL) EU/DL Ur Leukocyte Esterase Negative (NEGATIVE) Urinalysis Comment Microscopic not ind. Salicylates (2-20) MG/DL Urine Opiates Screen ng/mL Ur Oxycodone Screen ng/mL Urine Methadone Screen ng/mL Ur Propoxyphene Screen ng/mL Acetaminophen (10-30) UG/ML Ur Barbiturates Screen ng/mL Valproic Acid (50-120) UG/ML U Tricyclic Antidepress ng/mL Ur Phencyclidine Scrn ng/mL Ur Amphetamines Screen ng/mL U Methamphetamines Scrn ng/mL U Benzodiazepines Scrn ng/mL Urine Cocaine Screen ng/mL U Cannabinoids Screen ng/mL Ur Drug Screen Confirm Sent out Alcohol, Quantitative (<10) MG/DL - Radiology Data Attestation: I reviewed the patient's radiology results. CXR: New elevated hemidiaphragm vs LLL consolidation. Widened mediastinum. Clear costophrenic margins right, ?left. CT Chest: IMPRESSION: 1. Diffuse airway narrowing of the left and right mainstem bronchus and peripheral bronchi with posterior wall involvement of the bronchus. Differential includes most likely malignant neoplasm involving the central airway versus granulomatous disease such as Shiloh's or sarcoidosis or invasive tracheobronchial aspergillosis. 2. Complete postobstructive left lung atelectasis and pneumonitis. 3. Calcified mediastinal and right hilar lymph nodes and calcified upper lobe pulmonary nodule which may suggest prior exposure to granulomatous disease. CT Head: IMPRESSION: 1. No acute intracranial findings. 2. Sinusitis and some debris in the nasopharynx 3. Right mastoidectomy. - EKG Data EKG #1 EKG attestation: Yes: I reviewed and interpreted this EKG. EKG shows normal: sinus rhythm Rate: tachycardia [place]/QRS: LAHB/LAFB Voltage: c/w LVH Interpretation: nonspecific ST-T wave changes Disposition Clinical Impression: overdose [place] [facility] [place]: Critical Time of Disposition: 23:30 - Seen By: physician
[2017-02-17] MEDS: SALINE FLUSH 10ml SYRINGE IVF PRN (19:58)
[2017-02-17] MEDS ORDERED: LACRI-LUBE EYE OINT 3.5gm EACH EYE ONE (20:05)
[2017-02-17] MEDS ORDERED: IODIXANOL 320mg/ml 100ml INJECTION IV ONE (20:13)
[2017-02-17] MEDS ORDERED: SALINE FLUSH 10ml SYRINGE ONE (20:13)
[2017-02-17] MEDS ORDERED: NS 100 ML ONE (20:13)
[2017-02-17] MEDS: LR 1,000 ML IV SCH (20:52)
[2017-02-17] MEDS ORDERED: LR 1,000 ML IV SCH (22:30)
[2017-02-17 23:35] VITALS: BMI 26.7
[2017-02-18] MEDS ORDERED: LACRI-LUBE EYE OINT 3.5gm EACH EYE PRN (00:10)
[2017-02-18] MEDS ORDERED: MORPHINE SULFATE 2 MG SYRINGE IVP PRN (00:10)
--- NOTE | 2017-02-18 01:20 | History & Physical Report ---
<Corey Gardner I - Last Filed: 02/18/17 01:19> History of Present Illness Date: 02/18/17 Chief complaint: Altered Mental Status HPI: Awais is a 51 year old white male who was brought [place] [facility] [place] with altered LOC. Apparently, he went to [place] with friends last night and they were camping. He took his Seroquel, apparently did not mention to any of his friends any suicidal ideation or give him any indication that anything was wrong. He did not get up this morning, and when friends checked on him and his tent, he was difficult to rouse and they called EMS. He had a GCS of 3, and was bagged, then placed on CPAP en route. He did not come around after admission to the emergency department, and he was subsequently intubated. Urine drug screen was positive for benzodiazepines, methamphetamines, and TCA. His corrected QT interval on EKG was okay. He had an abnormal chest x-ray , and subsequent CT scan of his chest revealed bilateral narrowing of the mainstem bronchi, with nearly complete obstruction on the left with a postobstructive pneumonia. His CK was approximately 3000, the remainder of his laboratory data was unimpressive as reported below. Given his altered mental status, and a remote history of a brain tumor, CT scan of the head was performed and read as unremarkable for acute findings. Dr. Schmitz was consulted from the emergency department, and felt the patient could be admitted to the intensive care unit for pulmonary consultation, possible fiberoptic bronchoscopy in the morning. Review of Systems ROS unobtainable: due to endotracheal tube, due to mental status [facility] Patient Stated Medical History Coronary Artery Disease Yes Other Cardiology Yes: STENTS 2012,11/29/15 Asthma Yes Chronic Obstructive Pulmonary Yes Disease (COPD) Gastroesophageal Reflux Yes Disease Ulcer Yes Hx Kidney Stones Yes Other Hematologic Yes: COMBINED VARIABLE IMMUNODEFICIENCY DISORDER Other Infectious Yes: IGG INFUSIONS-SEE'S DR BESS Bipolar Disorder Yes Depression Yes Schizophrenia Yes: SON THINKS HE WAS RECENTLY DX WITH THIS Medical History Updates: Bipolar d/o. Seizures. Brain tumor. Chronic pain. GERDHL. HTN. CAD. COPD. Asthma. GERD. Gastric ulcers. Kidney stones. SAHU. Chronic back pain. Bipolar d/o. Brain tumor. 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) Medications Home Medications Medication Instructions Recorded Confirmed Type Duloxetine HCl [Cymbalta] 60 mg PO BID #0 11/05/11 02/17/17 History Omeprazole 40 mg PO DAILY #0 01/31/12 02/17/17 History Atorvastatin Calcium 40 mg PO HS #0 12/17/12 02/17/17 History EPINEPHrine Pen [Epipen] 0.3 mg IM O PRN #0 12/17/12 02/17/17 History Gemfibrozil 600 mg PO BID #0 12/17/12 02/17/17 History Immune Globulin,Gamma (Igg) 10 gm SQ Q2W #0 12/17/12 02/17/17 History (Hizentra) Albuterol Sulfate [Proair Hfa] 1 - 2 puff IH Q4-6H PRN #0 01/12/13 02/17/17 History Arformoterol Neb [Brovana Neb] 1 vial IH QID PRN #0 09/17/13 02/17/17 History Lisinopril 20 mg PO DAILY #0 09/16/14 02/17/17 History Ofloxacin 0.3% *Eye* Drops 1 - 2 drop EACH EAR BID #0 09/16/14 02/17/17 History [Ocuflox] Quetiapine Fumarate [Seroquel Xr] 400 mg PO HS #0 09/16/14 02/17/17 History ALPRAZolam [Alprazolam] 2 mg PO QID PRN #0 03/23/15 02/17/17 History Aspirin [Aspirin EC] 325 mg PO DAILY #0 03/23/15 02/17/17 History Clopidogrel Bisulfate [Clopidogrel] 75 mg PO DAILY #0 03/23/15 02/17/17 History Metoclopramide HCl 10 mg PO Q6H PRN #0 03/23/15 02/17/17 History Metoprolol Tartrate 50 mg PO BIDWM #0 11/28/15 02/17/17 History Naloxone HCl [Evzio] 1 unit IM O PRN #0 11/28/15 02/17/17 History Hydrocodone/Acetaminophen 1 tab PO Q4HR PRN #0 12/05/15 02/17/17 History [Hydrocodon-Acetaminophn 10-325] Cyclobenzaprine HCl 10 mg PO TID PRN #0 03/22/16 02/17/17 History Silver Sulfadiazine 1 applic TOP DAILY #0 11/28/16 02/17/17 History Gabapentin [Neurontin] 600 mg PO TID 02/17/17 02/17/17 History Naloxegol Oxalate [Movantik] 25 mg PO DAILY 02/17/17 02/17/17 History Allergies Allergy/AdvReac Type Severity Reaction Status Date / Time morphine Allergy Unknown RASH Verified 12/05/15 15:03 tramadol Allergy Unknown RASH Verified 12/05/15 15:03 oxycodone HCl Allergy Unknown RASH Uncoded 12/05/15 15:03 Exam Vital Signs: Temperature 97.9 F 02/17/17 19:14 Pulse Rate 104 H 02/18/17 00:09 Respiratory Rate 17 02/18/17 00:09 Blood Pressure 114/63 02/17/17 23:15 Pulse Oximetry 97 02/18/17 00:09 Fraction of Inspired Oxygen 70 Telemetry Rhythm: Sinus Rhythm Telemetry Ectopy: Bundle Branch Block Height: 5 ft 10 in Weight: 84.6 kg Body Mass Index: 26.7 - Constitutional Present: obtunded ( sedate, intubated) - Routine HEENT Exam Head: Present: normocephalic Comments: endotracheal tube in place - Routine Neck Exam Present: trachea midline. Absent: swelling, tracheal deviation - Routine Respiratory Exam Present: patient mechanically ventilated, decreased breath sounds ( left greater than right). Absent: respiratory distress, wheezes - Routine Cardiovascular Exam Present: RRR. Absent: irregular rhythm - Routine Abdominal Exam Present: soft, non distended. Absent: non tender ( no apparent tenderness, but depressed LOC) - Routine Extremities Exam Present: pulses intact, normal capillary refill. Absent: cyanosis, clubbing, edema - Routine Skin Exam Present: intact. Absent: cyanosis, lesions, jaundice, rash - Routine Neurological Exam Absent: alert no spontaneous movements noted, minimal general response to painful stimuli reported - Routine Psychiatric Exam Present: unable to assess - Additional findings Additional findings: examination performed denied via telemedicine equipment with the assistance of the bedside nurse. The patient's youngest son was at the bedside at the time of my evaluation as well. Results - Labs CBC & Chem 7: 02/17/17 19:29 02/17/17 19:29 - ABG Interpretation Attestation: I reviewed and interpreted this ABG. Interpretation: normal Additional comments: oxygenating well, pH within normal limits Assessment and Plan (1) Respiratory failure Current visit: Yes Status: Acute He is admitted to the ICU in critical condition. He is intubated and appears to be oxygenating well. Suspect polysubstance overdose, possible seizure. He also appears to have a postobstructive pneumonia, with no previous known history of thoracic malignancy. The differential on that is extensive, as well , but it appears he would certainly benefit from pulmonology consultation and quite possibly fiberoptic bronchoscopy for further elucidation of this. For tonight, I Have begun broad-spectrum antibiotics we will continue ventilator support recheck labs in the morning to include a follow-up arterial blood gas and serum troponin. 02/18/17 01:30 (2) Bipolar affective Current visit: Yes Status: Acute (3) CVID (common variable immunodeficiency) Current visit: Yes Status: Acute he apparently sees Dr. Bess and receives IgG infusions periodically. Again, broad-spectrum antibiotics have been initiated and a blood culture is pending. 02/18/17 01:38 (4) CAD (coronary artery disease) Current visit: Yes Status: Acute EKG was nonischemic. We will repeat in the morning, check troponin in the morning. A modest, slight elevation would not be surprising given some possible global hypoxic injury. 02/18/17 01:38 DVT Prophylaxis: Lovenox GI Prophylaxis: Pepcid Resuscitation Status: Full Code - Time spent with patient greater than 35 minutes Sepsis Assessment - Evaluation Sepsis screening result: No Definite Risk Hospital Course Summary Disclaimer: The visit summary below is not to be considered part of the above Progress Note. <Amalia Vale - Last Filed: 02/18/17 15:20> History of Present Illness Date: 02/18/17 [facility] Patient Stated Medical History Coronary Artery Disease Yes Other Cardiology Yes: STENTS 2012,11/29/15 Asthma Yes Chronic Obstructive Pulmonary Yes Disease (COPD) Gastroesophageal Reflux Yes Disease Ulcer Yes Hx Kidney Stones Yes Other Hematologic Yes: COMBINED VARIABLE IMMUNODEFICIENCY DISORDER Other Infectious Yes: IGG INFUSIONS-SEE'S DR BESS Bipolar Disorder Yes Depression Yes Schizophrenia Yes: SON THINKS HE WAS RECENTLY DX WITH THIS Exam Vital Signs: Temperature 98.6 F 02/18/17 11:45 Pulse Rate 93 02/18/17 12:00 Respiratory Rate 22 02/18/17 13:01 Blood Pressure 123/71 02/18/17 12:00 Pulse Oximetry 100 02/18/17 12:00 Oxygen Delivery Method Mechanical Ventilation Fraction of Inspired Oxygen 50 Height: 5 ft 10 in Weight: 185 lb 10.067 oz Results - Labs CBC & Chem 7: 02/17/17 19:29 02/18/17 01:37 Microbiology Results: Microbiology 02/18/17 01:36 Peripheral/Iv Start Blood Culture - Preliminary Culture Initiated - Results Pending 02/18/17 01:37 Peripheral/Iv Start Blood Culture - Preliminary Culture Initiated - Results Pending - ABG Interpretation ABG results: 02/18/17 06:00 ABG pH 7.420 ABG pCO2 39 ABG pO2 88 ABG HCO3 25 ABG Total CO2 26.5 ABG O2 Saturation 97.0 ABG Base Excess 0.8 Assessment and Plan (1) Respiratory failure Current visit: Yes Status: Acute (2) Bipolar affective Current visit: Yes Status: Acute (3) CVID (common variable immunodeficiency) Current visit: Yes Status: Acute (4) CAD (coronary artery disease) Current visit: Yes Status: Acute Assessment and Plan: I have independently evaluated and examined this patient. I reviewed the chart, the patient's history, and the documented findings as above. Informant is patient's chart, patient's son, records from infectious disease consultants. The patient is intubated and unable to give a history Chief complaint altered mental status: The patient is a 51-year-old white male who was brought in with mental status changes. He has been from his second for about 6-7 months. He recently lost his home and has been homeless and living in out at [place] in a tent. Patient's son reports his stepbrother Eddie called him in 3:15 yesterday and said "dad tried to commit suicide" yesterday by taking pills. Subsequently the patient apparently took more pills and passed out in the tent. It's unclear what medications he took. He does have a history of suicide attempts including an attempt to hang himself. Eventually EMS was called he was brought into the hospital requiring intubation. He currently remains on the vent and is unable to give a history. His urine drug screen was positive for benzodiazepines methamphetamines and TCA. His corrected QT interval on EKG was okay. It should be noted a recent phone call to the infectious disease quality assurance consultant's office on February 05 documents that the patient was refusing a shipment of subcutaneous IViG. It says "the patient received subcutaneous IgG on January 28 and was then arrested and sent to group home on January 30. The son at the bedside reports this was secondary to drugs). Since that time the patient was bailed out and was refusing shipments of this medication because he says he was done. That he has a cholesteatoma continues to get bigger and is having numerous seizures and is on Keppra for. No seizure has been witnessed. The patient states he has an upcoming court date that could possibly send him to detention for 10-30 years and has been evicted from his apartment and has to be up by February 13. He reports that he has green stuff coming from his ear." Past medical history: Combined variable immunodeficiency on subcutaneous IgG however he has recently called the infectious disease office and reported that he wants to stop taking his IVIG.(Inadequate response to strep pneumo vaccine only had protective levels 3 of 23 antibodies) Acute on chronic maxillary and frontal sinusitis previously treated with Amox/ clav Current respiratory infections COPD with frequent acute bacterial exacerbations Recurrent otitis media with chronic tympanoplasty reportedly tubes out and not replaced History of extensive cleft palate repair with persistent nasal septal deviation- per patient oral surgeon has told him he wants to revise cleft palate repair at some point Nocturnal hypoxia is on supplemental O2 at night Tobaccoism Hearing loss Asthma Hiatal hernia Urinary calculus Osteoarthritis Lumbar disc degeneration Migraine headache Spinal cord injury Depression Internalize anxiety disorder bipolar Brain tumor- may have been resected in [place] many years ago Seizure disorder per patient Past surgical history: Tonsillectomy Sinus surgery 2 Cleft palate Removal of cholesteatoma 2 Cardiac stent placement 2014 Medications and allergies were reviewed- Allergies according to the infectious disease notes include Stokes, Percocet, morphine, Ultram Family history: His mother with emphysema, COPD, colon cancer, hypertension His father is alive with hypertension, prostate cancer Personal history: He continues to smoke, he uses marijuana, the son was not aware of his amphetamine use. 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 ROS- unobtainable In general, intubated and sedated and on a propofol drip with an FiO2 of 60% and O2 sat greater than 90 HEENT: Head is atraumatic, normocephalic, no conjunctival petechiae, he is orally intubated, he appears to be missing multiple teeth. Lungs: Clear to auscultation without wheezes, crackles or rhonchi CV: Regular rate and rhythm without murmur Abdomen: Soft, nontender, bowel sounds are present, there is no guarding no rebound. Extremities: No clubbing, no cyanosis, no edema. Skin: Warm and dry no sign of rash Neuro: Sedated and unresponsive IV access: Left antecubital Chest x-ray from 02/17/2017 shows significant volume loss involving the left lung since previous examination with an elevated diaphragm and shifted mediastinal structures from right to left-CT of chest also reviewed as well as CT of head shows significant opacification of the sinuses especially the ethmoid and sphenoid sinuses with also a significant nasopharyngeal and oropharyngeal soft tissue swelling Impression: Altered mental status with respiratory suppression requiring intubation. Drug overdose with metamphetamine, benzodiazepines, and TCA By CT scan he has complete collapse of the left lung with volume loss and mediastinal shift with possible bronchial narrowing leading to this collapse currently on pip/tazo and Vanco Common variable immunodeficiency with expected sequelae followed by Dr. Salo Rodriguez Coronary artery disease Elevated CPK most likely secondary to rhabdomyolysis, interestingly his UA does not show red blood cells Seizures Plan: Dr. Schmitz has been counseled to the patient will undergo a bronchoscopy later this afternoon, appreciate his help Continue respiratory support Continue IV fluids and recheck lab work including CPK We'll hold home medications except Keppra for seizures and it will be given IV, as well as IV metoprolol monitoring his blood pressure and pulse closely Bronch assessment is pending blood cultures are negative thus far will continue antibiotics for today This point will not resume his IVIG, may be worthwhile to involve infectious disease service to continue follow-up if the patient wants to continue therapy. Hospital Course Summary Disclaimer: The visit summary below is not to be considered part of the above Progress Note.
[2017-02-18] MEDS: ENOXAPARIN 40 MG/0.4 ML INJECTION SQ SCH ×2 (01:53→10:54)
[2017-02-18] MEDS: PIPERACILLIN/TAZOBACTAM 3.375 GM in NS 100 ML IV SCH ×4 (03:09→20:06)
[2017-02-18] MEDS: FAMOTIDINE PB 20 MG/50 ML BAG IV SCH ×2 (04:15→13:30)
[2017-02-18] MEDS: LR 1,000 ML IV SCH ×3 (06:50→23:07)
--- NOTE | 2017-02-18 07:45 | CT Scan Report ---
Indication: Possible left thoracic mass CT chest w con: Comparison: Chest radiograph earlier in the day Technique: Patient scanned from above the thoracic inlet to below the diaphragms after 75 cc Visipaque 320 intravenous contrast is used. Dose reduction imaging technology and reformatted sagittal and coronal images are provided. Findings: Patient demonstrates an endotracheal tube in place. No additional acute findings noted in the base of the neck. Patient demonstrates some questionable thickening of the bronchial kirkpatrick especially the left mainstem bronchus. Patient showed the significant atelectatic changes involving nearly the entire left lung. Volume loss is identified with elevation of the left diaphragm. Patient shows a calcified 8 mm upper lobe probable granuloma. Mediastinum and cardiac structures are shifted to the left due to the volume loss. Limited imaging below the diaphragm showed no acute findings. Reformatted bony imaging shows no marked fractures or malalignments. Impression: 1. Since an old chest radiograph from November 2015 there is now almost complete collapse of the left lung with volume loss and mediastinal shift from right to left. 2. Possible bronchial narrowing leading to this collapse. Rhonchi auscultated would seem worthwhile for better evaluation. 3. Findings were communicated to the ordering clinician by the V rad service on a callback basis. .
--- NOTE | 2017-02-18 07:53 | XRay Report ---
Indication: postintubation XR chest 1V: Comparison: 12/05/2015 Technique: Single view chest Findings: Patient shows an endotracheal tube well above the carinal bifurcation. Patient shows significant change in the appearance of the left lung since the previous exam from 2016. Considerable volume loss is present with elevated left diaphragm and shift of mediastinal structures toward the left. This suggests significant atelectasis of the left lung. Stable granuloma seen on the right side. No acute findings noted in the right. No acute new bony findings seen. The heart size seems normal although as mentioned shifted toward the left chest. Impression: 1. Significant volume loss involving the left lung since previous examination with an elevated diaphragm and shift of mediastinal structures from right to left. This suggests significant atelectasis of the left lung and bronchoscopy and/or CT scanning recommended. 2. Endotracheal tube in good position well above the carinal bifurcation. .
--- NOTE | 2017-02-18 08:55 | Pulmonology Consult Note ---
History of Present Illness Consult date: 02/18/17 Requesting physician: Jaime Tripathi Reason for consult: lung mass History of present illness: Awais is a 51 year old white male who was brought to the [facility] by EMS with altered LOC. I was called by the ED physician at the request of Dr Morrison to consult regarding respiratory failure and possible bronchoscopy for lung mass. Apparently, he went to [place] with friends last night and they were camping. He took his Seroquel, apparently did not mention to any of his friends any suicidal ideation or give him any indication that anything was wrong. He did not get up this morning, and when friends checked on him and his tent, he was difficult to rouse and they called EMS. He had a GCS of 3, and was bagged, then placed on CPAP en route. He did not come around after admission to the emergency department, and he was subsequently intubated. Urine drug screen was positive for benzodiazepines, methamphetamines, and TCA. His corrected QT interval on EKG was okay. He had an abnormal chest x-ray , and subsequent CT scan of his chest revealed bilateral narrowing of the mainstem bronchi, with nearly complete obstruction on the left with a postobstructive pneumonia. His CK was approximately 3000, the remainder of his laboratory data was unimpressive as reported below. Given his altered mental status, and a remote history of a brain tumor, CT scan of the head was performed and read as unremarkable for acute findings. Dr. Schmitz was consulted from the emergency department, and felt the patient could be admitted to the intensive care unit for pulmonary consultation, possible fiberoptic bronchoscopy in the morning. He is intubated due to his AMS and unable to provide history Review of Systems ROS unobtainable: due to endotracheal tube, due to mental status [facility] Patient Stated Medical History Coronary Artery Disease Yes Other Cardiology Yes: STENTS 2012,11/29/15 Asthma Yes Chronic Obstructive Pulmonary Yes Disease (COPD) Gastroesophageal Reflux Yes Disease Ulcer Yes Hx Kidney Stones Yes Other Hematologic Yes: COMBINED VARIABLE IMMUNODEFICIENCY DISORDER Other Infectious Yes: IGG INFUSIONS-SEE'S DR BECKWITH Bipolar Disorder Yes Depression Yes Schizophrenia Yes: SON THINKS HE WAS RECENTLY DX WITH THIS Medical History Updates: Bipolar d/o. Seizures. Brain tumor. Chronic pain. GERDHL. HTN. CAD. COPD. Asthma. GERD. Gastric ulcers. Kidney stones. SAHU. Chronic back pain. Bipolar d/o. Brain tumor. HTN Surgical History: His son thinks he had a resection of brain tumor in [place] many years ago but he is not sure - Social History Smoking status: Current every day smoker Substance last used: just FIRE [employer]ENA[employer] (unknown details) Review of Systems ROS unobtainable: due to endotracheal tube [facility] Patient Stated Medical History Coronary Artery Disease Yes Other Cardiology Yes: STENTS 2012,11/29/15 Asthma Yes Chronic Obstructive Pulmonary Yes Disease (COPD) Gastroesophageal Reflux Yes Disease Ulcer Yes Hx Kidney Stones Yes Other Hematologic Yes: COMBINED VARIABLE IMMUNODEFICIENCY DISORDER Other Infectious Yes: IGG INFUSIONS-SEE'S DR BECKWITH Bipolar Disorder Yes Depression Yes Schizophrenia Yes: SON THINKS HE WAS RECENTLY DX WITH THIS Medical History Updates: Bipolar d/o. Seizures. Brain tumor. Chronic pain. GERDHL. HTN. CAD. COPD. Asthma. GERD. Gastric ulcers. Kidney stones. SAHU. Chronic back pain. Bipolar d/o. Brain tumor. HTN Surgical History: His son thinks he had a resection of brain tumor in [place] many years ago but he is not sure - Social History Smoking status: Current every day smoker Medications Home Medications Medication Instructions Recorded Confirmed Type Duloxetine HCl [Cymbalta] 60 mg PO BID #0 11/05/11 02/17/17 History Omeprazole 40 mg PO DAILY #0 01/31/12 02/17/17 History Atorvastatin Calcium 40 mg PO HS #0 12/17/12 02/17/17 History EPINEPHrine Pen [Epipen] 0.3 mg IM O PRN #0 12/17/12 02/17/17 History Gemfibrozil 600 mg PO BID #0 12/17/12 02/17/17 History Immune Globulin,Gamma (Igg) 10 gm SQ Q2W #0 12/17/12 02/17/17 History (Hizentra) Albuterol Sulfate [Proair Hfa] 1 - 2 puff IH Q4-6H PRN #0 01/12/13 02/17/17 History Arformoterol Neb [Brovana Neb] 1 vial IH QID PRN #0 09/17/13 02/17/17 History Lisinopril 20 mg PO DAILY #0 09/16/14 02/17/17 History Ofloxacin 0.3% *Eye* Drops 1 - 2 drop EACH EAR BID #0 09/16/14 02/17/17 History [Ocuflox] Quetiapine Fumarate [Seroquel Xr] 400 mg PO HS #0 09/16/14 02/17/17 History ALPRAZolam [Alprazolam] 2 mg PO QID PRN #0 03/23/15 02/17/17 History Aspirin [Aspirin EC] 325 mg PO DAILY #0 03/23/15 02/17/17 History Clopidogrel Bisulfate [Clopidogrel] 75 mg PO DAILY #0 03/23/15 02/17/17 History Metoclopramide HCl 10 mg PO Q6H PRN #0 03/23/15 02/17/17 History Metoprolol Tartrate 50 mg PO BIDWM #0 11/28/15 02/17/17 History Naloxone HCl [Evzio] 1 unit IM O PRN #0 11/28/15 02/17/17 History Hydrocodone/Acetaminophen 1 tab PO Q4HR PRN #0 12/05/15 02/17/17 History [Hydrocodon-Acetaminophn 10-325] Cyclobenzaprine HCl 10 mg PO TID PRN #0 03/22/16 02/17/17 History Silver Sulfadiazine 1 applic TOP DAILY #0 11/28/16 02/17/17 History Gabapentin [Neurontin] 600 mg PO TID 02/17/17 02/17/17 History Naloxegol Oxalate [Movantik] 25 mg PO DAILY 02/17/17 02/17/17 History Allergies Allergy/AdvReac Type Severity Reaction Status Date / Time morphine Allergy Unknown RASH Verified 12/05/15 15:03 tramadol Allergy Unknown RASH Verified 12/05/15 15:03 oxycodone HCl Allergy Unknown RASH Uncoded 12/05/15 15:03 Exam Vital signs: Temperature 99.2 F 02/18/17 08:15 Pulse Rate 107 H 02/18/17 08:15 Respiratory Rate 17 02/18/17 08:15 Blood Pressure 147/87 H 02/18/17 08:15 Pulse Oximetry 99 02/18/17 08:15 Oxygen Delivery Method Mechanical Ventilation Fraction of Inspired Oxygen 60 Results - Laboratory Findings CBC and BMP: 02/17/17 19:29 02/18/17 01:37 ABG ABG pH 7.420 (7.350-7.450) 02/18/17 06:00 ABG pCO2 39 MMHG (34-45) 02/18/17 06:00 ABG pO2 88 MMHG (80-100) 02/18/17 06:00 ABG O2 Saturation 97.0 % (95.0-98.0) 02/18/17 06:00 Abnormal lab findings: Abnormal Labs 02/18/17 01:37 Chloride 109 H Glucose 111 H Calcium 8.3 L AST 119 H D
[2017-02-18] MEDS: PROPOFOL 1,000 MG/100 ML VIAL IV PRN ×3 (09:36→20:36)
--- NOTE | 2017-02-18 09:39 | CT Scan Report ---
Indication: H/o brain CA CT head/brain wo con: Comparison: 11/28/2016 Technique: Nonenhanced axial imaging with brain and bone window evaluation utilized. Dose reduction imaging technology is present. Findings: Patient shows significant worsening in the appearance of the sinuses since the prior study. Extensive soft tissue density is no present throughout the maxillary especially the ethmoids and sphenoid sinuses with significant soft tissue prominence of the peritonsillar soft tissues as well. This showed significant effect on the overall airway. Intracranially the patient showed no acute intracranial findings. No suggestion of hemorrhage, midline shift or mass is identified. Impression: 1. Patient now showed significant opacification of the sinuses especially the ethmoids and sphenoid sinuses with also significant nasopharyngeal and oral pharyngeal soft tissue swelling without significant compromise to the airway. 2. No acute intracranial findings. 3. Findings communicated to the ordering clinician by the V rad service. .
[2017-02-18] MEDS ORDERED: ALBUTEROL/IPRATROPIUM 2.5mg-0.5mg/3ml NEB AEROSOL PRN (09:49)
[2017-02-18] MEDS: METOPROLOL 5mg/5ml INJECTION IVP SCH ×3 (10:58→23:07)
[2017-02-18] MEDS: ALBUTEROL/IPRATROPIUM 2.5mg-0.5mg/3ml NEB AEROSOL SCH ×4 (11:09→23:29)
[2017-02-18] MEDS ORDERED: ROCURONIUM 50 MG/5 ML INJECTION IVP ONE (11:46)
[2017-02-18] MEDS: LEVETIRACETAM INJ 500 MG in NS 100 ML IV SCH ×2 (12:19→21:19)
[2017-02-18] MEDS ORDERED: LIDOCAINE 1% (10mg/ml) 30ml SDV INJ ONE (14:18)
[2017-02-18] MEDS ORDERED: LACRI-LUBE EYE OINT 3.5gm ONE (14:20)
--- NOTE | 2017-02-18 15:35 | Procedure Note ---
Date of procedure: 02/18/17 (flexible FOB passed via ETT. miriam normal. Scope passed to right main, RUL, bronchus intermedius, RML, RLL. no endobronchial lesions. Scope passed to L main, GHASSAN, LLL. large amt mucus plugs therapeutically aspirated until the airways were clear. No endobronchial lesions identified. BAL performed from LLL 10 ML fluid sent for studies. ) Pre-op diagnosis: atelectasis, respiratory failure, rule out lung mass Post-op diagnosis: other (atelectasis due to mucus plugging) Procedure: bronchoscopy with BAL Anesthesia: other (IV propofol) Surgeon: Guy Schmitz MD Estimated blood loss (mL): 0 Condition: Stable Disposition: ICU
--- NOTE | 2017-02-18 16:05 | XRay Report ---
Indication: post bronchoscopy XR chest 1V: Comparison: 02/18/2016 Technique: Single portable AP supine chest Findings: Patient shows better aeration of the left lung with less elevation of the left diaphragm and better aeration. Patient still shows hazy increased interstitial markings throughout a good portion of the left chest. Heart size is stable. Endotracheal tube remains in place well above the miriam. Or graft right lung shows a stable granuloma. Impression: 1. Improved aeration of the left lung since prior study. Much less ovation of the left diaphragm is present and better overall aeration is seen although, patient still showed some heavier markings on the left. 2. Stable heart size with endotracheal tube in place well above the carinal bifurcation. .
[2017-02-19] MEDS: PROPOFOL 1,000 MG/100 ML VIAL IV PRN ×3 (00:09→09:01)
[2017-02-19] MEDS: PIPERACILLIN/TAZOBACTAM 3.375 GM in NS 100 ML IV SCH ×4 (02:11→20:22)
[2017-02-19] MEDS: FAMOTIDINE PB 20 MG/50 ML BAG IV SCH ×2 (02:49→14:36)
[2017-02-19] MEDS: ALBUTEROL/IPRATROPIUM 2.5mg-0.5mg/3ml NEB AEROSOL SCH ×5 (03:30→22:44)
[2017-02-19] MEDS: METOPROLOL 5mg/5ml INJECTION IVP SCH ×3 (04:06→15:56)
[2017-02-19] MEDS: SALINE FLUSH 10ml SYRINGE IVF PRN ×2 (04:07→08:54)
[2017-02-19] MEDS: LEVETIRACETAM INJ 500 MG in NS 100 ML IV SCH (08:25)
[2017-02-19] MEDS: ENOXAPARIN 40 MG/0.4 ML INJECTION SQ SCH (08:34)
[2017-02-19] MEDS: LR 1,000 ML IV SCH (08:57)
--- NOTE | 2017-02-19 08:57 | Pulmonology Progress Note ---
Subjective Principal diagnosis: Respiratory Failure Interval history: Pt currently in bed. per RN was weaned of propofol this am and became very agitated so the propofol was restarted. Currently sedated on the vent without issues. Exam Vital signs: Temperature 98.6 F 02/19/17 04:00 Pulse Rate 84 02/19/17 08:47 Respiratory Rate 19 02/19/17 08:47 Blood Pressure 128/75 02/19/17 06:30 Pulse Oximetry 100 02/19/17 08:47 Oxygen Delivery Method Mechanical Ventilation Oxygen Flow Rate 40 Fraction of Inspired Oxygen 40 - Constitutional no acute distress, well developed - Routine HEENT Exam Head: Present: normocephalic, atraumatic Eye: Present: PERRL - Routine Neck Exam Present: supple, full ROM - Routine Respiratory Exam Present: patient mechanically ventilated, CTA bilaterally. Absent: accessory muscle use, respiratory distress - Routine Cardiovascular Exam Present: RRR, S1, S2 - Routine Abdominal Exam Present: soft, normoactive bowel sounds - Routine Extremities Exam Present: no edema, full ROM. Absent: cyanosis, clubbing, edema - Routine Skin Exam Present: intact, dry - Routine Neurological Exam currently sedated on the vent. - Routine Psychiatric Exam Present: unable to assess - Urinary Catheter Management Urethral Cath placed during this visit: yes Urethral indwelling: Yes Reason for continuing: Prolonged Immobilization Insertion date: 02/17/17 Insertion time: 19:35 Progress Note-A&P (1) Respiratory failure Status: Acute Assessment and plan: Pt currently sedated on the vent, tried to wean the propofol this am and pt became very agitated. Will start precedex and wean propofol to work towards extubation. Currently on Ac/Vc f14, Vt 450, peep 5, 40%, tolerating well. Current Visit: Yes (2) Atelectasis of left lung Status: Acute Assessment and plan: CXR noted with improved left lung infiltrate/atelectasis s/p bronchoscopy yesterday am with clearing of mucous plugs. Cont with BT's and suctioning prn. Once extubated, may benefit from Ezpap. Follow CXR. Current Visit: Yes (3) Overdose Status: Acute Assessment and plan: Pt currently with IVF per primary, likely overdose secondary to suicide attempt and Hx bipolar. Likely needs psych eval once extubated. No issues noted at this time. Primary checking CPK. Current Visit: Yes (4) Bipolar affective Status: Acute Assessment and plan: Meds per primary, no issues noted, likely needs psych eval. Current Visit: Yes - Time Spent With Patient Total time spent is greater than 50% in coordination of care (as documented) at patient's floor/unit and/or counseling patient: less than 15 minutes Sepsis Assessment - Evaluation Sepsis screening result: No Definite Risk
--- NOTE | 2017-02-19 08:59 | Progress Note ---
Subjective: Is intubated and sedated on propofol. Propofol was weaned overnight and this morning the patient became very agitated and tried to self extubate. Propofol was then increased. Currently the patient does have some spontaneous movement but appears comfortable on propofol. His son was here earlier this morning. Objective Vital signs: Temperature 98.6 F 02/19/17 04:00 Pulse Rate 84 02/19/17 08:47 Respiratory Rate 19 02/19/17 08:47 Blood Pressure 128/75 02/19/17 06:30 Pulse Oximetry 100 02/19/17 08:47 Oxygen Delivery Method Mechanical Ventilation Oxygen Flow Rate 40 Fraction of Inspired Oxygen 40 Weight: 84.2 kg Comments: The patient is afebrile. Blood pressure 136/77, O2 sat 97% on the vent with FiO2 of 40%. Heart rate is 86. I&O the last 24 hours 4405/2206 GEN-appears comfortable, sedated on the vent HEENT-pupils are equal and small, patient is orally intubated with an OG in place CV-regular rate and rhythm without S3, S4 or murmur CHEST-clear to auscultation ABD-soft, nontender, hypoactive bowel sounds -good urine output with clear urine. Pat in place EXT-no edema, bilateral SCDs in place NEURO-moves all 4 extremities spontaneously SKIN-warm and dry and without rashes Results - Labs CBC & Chem 7: 02/19/17 04:13 02/18/17 14:33 Labs: CMP, CPK from today are pending Microbiology Results: Microbiology 02/18/17 01:36 Peripheral/Iv Start Blood Culture - Preliminary No Growth After 1 Day 02/18/17 01:37 Peripheral/Iv Start Blood Culture - Preliminary No Growth After 1 Day 02/18/17 15:37 Body Fluid, Nos Gram Stain - Final - ABG Interpretation ABG results: 02/18/17 06:00 ABG pH 7.420 ABG pCO2 39 ABG pO2 88 ABG HCO3 25 ABG Total CO2 26.5 ABG O2 Saturation 97.0 ABG Base Excess 0.8 - Imaging and Cardiology Chest x-ray Status: image reviewed by me (chest x-ray this morning is pending) Assessment and Plan (1) Respiratory failure Current visit: Yes Status: Acute He is admitted to the ICU in critical condition. He is intubated and appears to be oxygenating well. Suspect polysubstance overdose, possible seizure. He also appears to have a postobstructive pneumonia, with no previous known history of thoracic malignancy. The differential on that is extensive, as well , but it appears he would certainly benefit from pulmonology consultation and quite possibly fiberoptic bronchoscopy for further elucidation of this. For tonight, I Have begun broad-spectrum antibiotics we will continue ventilator support recheck labs in the morning to include a follow-up arterial blood gas and serum troponin. 02/18/17 01:30 (2) Bipolar affective Current visit: Yes Status: Acute (3) CVID (common variable immunodeficiency) Current visit: Yes Status: Acute he apparently sees Dr. Bess and receives IgG infusions periodically. Again, broad-spectrum antibiotics have been initiated and a blood culture is pending. 02/18/17 01:38 (4) CAD (coronary artery disease) Current visit: Yes Status: Acute EKG was nonischemic. We will repeat in the morning, check troponin in the morning. A modest, slight elevation would not be surprising given some possible global hypoxic injury. 02/18/17 01:38 Assessment and Plan: Impression: Altered mental status with respiratory suppression requiring intubation. Currently doing well on 40% FiO2. Drug overdose with metamphetamine, benzodiazepines, and TCA Suicide attempt per family with history of bipolar versus schizophrenia By CT scan he has complete collapse of the left lung with volume loss and mediastinal shift with possible bronchial narrowing leading to this collapse currently on pip/tazo and Vanco. Status post bronchoscopy yesterday by Dr. Schmitz. Common variable immunodeficiency with expected sequelae followed by Dr. Salo Rodriguez Coronary artery disease Elevated CPK most likely secondary to rhabdomyolysis Seizures COPD Chronic nocturnal hypoxia Port in Chronic use of benzodiazepine 2 mg by mouth 4 times a day. Chronic use of narcotics Plan: Bronchoscopy performed yesterday with improvement post removal of mucous plugging. Repeat chest x-ray this morning. Will discuss with Dr. Schmitz after chest x-ray has been obtained. Continue respiratory support for now Await CPK, may need to adjust fluids. The patient is tolerating IV metoprolol and we will continue the current dose. Continue IV Keppra for history of seizure disorder Patient will need psychiatric evaluation after he is extubated and awake regarding suicide attempt. Continue Lovenox for DVT prophylaxis Continue Protonix for stress ulcer prophylaxis in a patient with history of ulcer who is intubated Greater than 1 hour of critical care time was spent seeing and evaluating the patient. Sepsis Assessment - Evaluation Sepsis screening result: No Definite Risk Hospital Course Summary Disclaimer: The visit summary below is not to be considered part of the above Progress Note.
--- NOTE | 2017-02-19 09:49 | XRay Report ---
Indication: intubated, bronch for mucous plugging yesterday PROCEDURE: XR chest 1V: Encounter: Initial Comparison: 02/18/2017, portable chest x-ray Findings: Single frontal view of the chest demonstrates an endotracheal tube in place with the tip 4.3 centimeter above the miriam, in good position. Nasogastric tube in place. There is haziness in the left base suggesting atelectasis or infiltrate and a subtle area of nodular pulmonary opacity in the left upper lobe which appears represent. Follow-up warranted. Left pleural effusion. Overall improved aeration of the left lung in terms of the interstitial disease that was present. No cardiomegaly. Right upper lobe calcified granuloma. Monitor leads overlie the chest. Osseous elements intact although there is evidence of chronic rotator cuff instability of the left shoulder with erosion of the undersurface acromion process. Impression: 1. Improved aeration of the left lung with some minimal nodular opacity in the suprahilar region, left basal atelectasis or infiltrate, and parapneumonic effusion. 2. Evidence of prior infectious elements disease. 3. Excellent position of the endotracheal tube. .
[2017-02-19] MEDS: NS 1,000 ML IV SCH ×2 (13:14→23:53)
[2017-02-19] MEDS: DEXMEDETOMIDINE 200 MCG in NS 50 ML IV SCH ×2 (13:17→15:42)
--- NOTE | 2017-02-19 14:34 | Pharmacy Consult-Antibiotics ---
Pharmacy Consult-Vancomycin - Laboratory Information WBC 8.1 T/MM3 (4.5-11.0) 02/19/17 04:13 BUN 10.0 MG/DL (9-20) 02/19/17 08:51 Creatinine 0.9 MG/DL (0.8-1.5) 02/19/17 08:51 - Consult Information Consult noted by Dr Billingsley to monitor vancomycin therapy on Mr Petersen, who is 51 years old and has respiratory failure. Will increase vancomyin to 2 grams IV q12h. Will draw a trough on 02/21/17 and evaluate. Thank you.
[2017-02-19] MEDS ORDERED: ACETAMINOPHEN 500 MG TABLET PO PRN (18:58)
[2017-02-19] MEDS: GABAPENTIN 600 MG TABLET PO SCH (20:43)
[2017-02-19] MEDS: LEVETIRACETAM 500 MG TABLET PO SCH (20:44)
[2017-02-20] MEDS: NICOTINE 21 MG PATCH TD PRN ×2 (01:07→23:47)
[2017-02-20] MEDS: PIPERACILLIN/TAZOBACTAM 3.375 GM in NS 100 ML IV SCH ×4 (01:10→19:37)
[2017-02-20] MEDS: FAMOTIDINE PB 20 MG/50 ML BAG IV SCH ×2 (01:59→13:58)
[2017-02-20] MEDS: ALBUTEROL/IPRATROPIUM 2.5mg-0.5mg/3ml NEB AEROSOL SCH ×7 (03:15→23:50)
[2017-02-20] MEDS: NS 1,000 ML IV SCH (06:22)
[2017-02-20] MEDS: GABAPENTIN 600 MG TABLET PO SCH ×3 (08:16→20:39)
[2017-02-20] MEDS: CLOPIDOGREL 75 MG TABLET PO SCH (08:16)
[2017-02-20] MEDS: LEVETIRACETAM 500 MG TABLET PO SCH ×2 (08:16→20:39)
[2017-02-20] MEDS: ENOXAPARIN 40 MG/0.4 ML INJECTION SQ SCH (08:16)
[2017-02-20] MEDS ORDERED: ASPIRIN *EC* 325 MG TABLET PO SCH (09:00)
[2017-02-20] MEDS ORDERED: 1/2 NS with KCL 20mEq 1,000 ML IV SCH (09:30)
[2017-02-20] MEDS: LISINOPRIL 20 MG TABLET PO SCH (09:51)
--- NOTE | 2017-02-20 12:38 | Pulmonology Progress Note ---
Subjective Principal diagnosis: Respiratory Failure Interval history: extubated, talkative. no distress. on RA. no cough or sputum. Exam Vital signs: Temperature 97.9 F 02/20/17 11:12 Pulse Rate 82 02/20/17 11:00 Respiratory Rate 26 H 02/20/17 11:00 Blood Pressure 151/86 H 02/20/17 11:00 Pulse Oximetry 91 02/20/17 11:00 Oxygen Delivery Method Nasal Cannula Oxygen Flow Rate 2 Fraction of Inspired Oxygen 30 SaO2/FiO2 Ratio 250 - Constitutional no acute distress, well developed - Routine HEENT Exam Head: Present: normocephalic, atraumatic Eye: Present: PERRL - Routine Respiratory Exam Present: decreased breath sounds, CTA bilaterally - Routine Cardiovascular Exam Present: RRR - Routine Abdominal Exam Present: soft - Urinary Catheter Management Urethral Cath placed during this visit: yes, but has since been removed by the nurse Urethral indwelling: Yes Insertion date: 02/17/17 Insertion time: 19:35 Removal date: 02/20/17 Removal time: 10:00 Progress Note-A&P (1) Atelectasis of left lung Status: Acute Assessment and plan: improved after intubation and bronchoscopy. no signs of endobronchial lesions. doing better. BAL is nondiagnostic so far, though gram stain showed 2 strains of Gram + cocci. He remains on Zosyn, could probably use Augmentin PO for a week on discharge Current Visit: Yes (2) Overdose Status: Acute Current Visit: Yes (3) Respiratory failure Status: Acute Assessment and plan: resolved. I will see as needed. He has a recurring problem with drug use, overdose and possible suicide attempts. I recommend psych eval Current Visit: Yes - Time Spent With Patient Total time spent is greater than 50% in coordination of care (as documented) at patient's floor/unit and/or counseling patient: less than 15 minutes Sepsis Assessment - Evaluation Sepsis screening result: No Definite Risk
[2017-02-20] MEDS: NICOTINE PATCH REMOVAL TD SCH (13:21)
--- NOTE | 2017-02-20 13:40 | XRay Report ---
Indication: hypoxia PROCEDURE: XR chest 1V: Encounter: Initial Comparison: 02/19/[address] dated 02/17/2017 Findings: There is cardiomegaly and pulmonary vascular congestion with mild diffuse interstitial prominence. There may be a trace left pleural effusion. There is some fullness of the right paratracheal soft tissues which is probably vascular. Trachea is midline. No subdiaphragmatic free air. No significant tortuosity of the descending thoracic aorta. There is a probable calcific granuloma along the right minor fissure. Impression: Evidence for prior granulomatous disease. Mild CHF with possible small left pleural effusion versus left basilar atelectasis or scarring. .
[2017-02-20] MEDS ORDERED: [UNRECOGNIZED DRUG - OTHER] IV SCH (13:47)
[2017-02-20] MEDS ORDERED: IMMUNE GLOBULIN IV SCH (13:47)
--- NOTE | 2017-02-20 13:56 | Progress Note ---
Subjective: The patient was seen earlier this morning and again later this afternoon. He was extubated yesterday and appears to be breathing well today. He is on room air. He is alert and in no distress. He did not sleep well last night. Seroquel has not been restarted. He denies any pain at this time. He has minimal cough. He denies any chest pain. He ate all of his breakfast and about half of his lunch. He has been up in a chair without difficulties. His gait is mildly unsteady when he is up in the room with assist. His speech is dysarthric and somewhat difficult to understand. 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 He did notify me this afternoon that he was wanting to restart his IgG treatments. This morning he did notify me that he feels "heartbroken". He feels depressed. He admits to suicide attempt. He states he still feels suicidal at times. He is agreeable to seeing a psychiatrist. He states he is trying to get away from one of his sons and has tried to get a restraining order against him, but it is too expensive. Objective Vital signs: Temperature 97.9 F 02/20/17 11:12 Pulse Rate 82 02/20/17 11:00 Respiratory Rate 25 H 02/20/17 12:56 Blood Pressure 151/86 H 02/20/17 11:00 Pulse Oximetry 94 02/20/17 12:56 Oxygen Delivery Method Nasal Cannula Oxygen Flow Rate 2 Fraction of Inspired Oxygen 30 SaO2/FiO2 Ratio 250 Weight: 84.3 kg Comments: I&O 4213/6441 GEN-alert, oriented to [facility], February,. No acute distress. HEENT-sclera anicteric, pupils equal, oropharynx is moist, signs of cleft lip and palate history NECK-supple CV-regular rate and rhythm CHEST-clear to auscultation bilaterally ABD-soft, nontender, nondistended with positive bowel sounds -Pat in place this morning and removed EXT-no edema NEURO-no focal deficits other than slurred speech which is chronic SKIN-warm and dry and without rashes Results - Labs CBC & Chem 7: 02/20/17 05:06 02/20/17 05:06 Microbiology Results: Microbiology 02/18/17 15:37 Bronchial Washing Acid Fast Bacilli Culture & Smear - Preliminary 02/18/17 15:37 Body Fluid, Nos Gram Stain - Final 02/18/17 15:37 Body Fluid, Nos Body Fluid Culture - Preliminary Gram Positive Cocci Gram Positive Cocci#2 02/18/17 01:36 Peripheral/Iv Start Blood Culture - Preliminary No Growth After 2 Days 02/18/17 01:37 Peripheral/Iv Start Blood Culture - Preliminary No Growth After 2 Days - ABG Interpretation ABG results: 02/18/17 06:00 ABG pH 7.420 ABG pCO2 39 ABG pO2 88 ABG HCO3 25 ABG Total CO2 26.5 ABG O2 Saturation 97.0 ABG Base Excess 0.8 Assessment and Plan (1) Respiratory failure Current visit: Yes Status: Acute He is admitted to the ICU in critical condition. He is intubated and appears to be oxygenating well. Suspect polysubstance overdose, possible seizure. He also appears to have a postobstructive pneumonia, with no previous known history of thoracic malignancy. The differential on that is extensive, as well , but it appears he would certainly benefit from pulmonology consultation and quite possibly fiberoptic bronchoscopy for further elucidation of this. For tonight, I Have begun broad-spectrum antibiotics we will continue ventilator support recheck labs in the morning to include a follow-up arterial blood gas and serum troponin. 02/18/17 01:30 (2) Bipolar affective Current visit: Yes Status: Acute (3) CVID (common variable immunodeficiency) Current visit: Yes Status: Acute he apparently sees Dr. Bess and receives IgG infusions periodically. Again, broad-spectrum antibiotics have been initiated and a blood culture is pending. 02/18/17 01:38 (4) CAD (coronary artery disease) Current visit: Yes Status: Acute EKG was nonischemic. We will repeat in the morning, check troponin in the morning. A modest, slight elevation would not be surprising given some possible global hypoxic injury. 02/18/17 01:38 Assessment and Plan: 02/20/2017 Dr. Billingsley Impression: Altered mental status with respiratory suppression requiring intubation. Extubated yesterday and currently on room air Chest x-ray today shows mild congestive changes and possible left pleural effusion Drug overdose with metamphetamine, benzodiazepines, and TCA Suicide attempt per family with history of bipolar versus schizophrenia-patient admits that he overdosed on Seroquel and muscle relaxants By CT scan he has complete collapse of the left lung with volume loss and mediastinal shift with possible bronchial narrowing leading to this collapse currently on pip/tazo and Vanco. Status post bronchoscopy 03/02/[address] Schmitz. Common variable immunodeficiency with expected sequelae followed by Dr. Salo Rodriguez Coronary artery disease Elevated CPK most likely secondary to rhabdomyolysis-CPK is slowly improving Seizure disorder-none this hospitalization COPD Chronic nocturnal hypoxia Chronic use of benzodiazepine 2 mg by mouth 4 times a day. Chronic use of narcotics Plan: Continue IV fluids for rhabdomyolysis, but at a slower rate because of findings on chest x-ray The patient is doing well postextubation yesterday he is on room air. Continue Zosyn for now. Possible change to oral antibiotics soon. Await sputum cultures. Vancomycin was DC'd today. Continue breathing treatments. The patient has tolerated change to oral metoprolol and Keppra. I did call and speak with Dr. Bess and he recommended resuming IVIG and giving a dose of 400 mg/kg IV 1 today for his CVID We'll see if the patient still needs aspirin and Plavix for history of stent. We 'll check with Dr. Chowdhury. We did obtain records from the patient's psychiatrist at [place] and he was taking Xanax 2 mg 1 by mouth 4 times a day as needed for anxiety. 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 Colvin and he was prescribed [place] 10 one every 4 hours as needed for pain along with gabapentin 300 mg 3 times a day and Cymbalta 60 mg daily. Continue Lovenox for DVT prophylaxis Dr. Mistry, psychiatrist has been consulted regarding the patient's depression and suicide attempt. The patient remains on suicide precautions. The patient's usual Xanax was restarted. DC IV famotidine and start oral omeprazole Greater than 40 minutes of critical care time spent seeing and evaluating the patient. Sepsis Assessment - Evaluation Sepsis screening result: No Definite Risk Hospital Course Summary Disclaimer: The visit summary below is not to be considered part of the above Progress Note. Hospital Course: 02/19/2017 Dr. Billingsley -Impression: Altered mental status with respiratory suppression requiring intubation. Currently doing well on 40% FiO2. Drug overdose with metamphetamine, benzodiazepines, and TCA Suicide attempt per family with history of bipolar versus schizophrenia By CT scan he has complete collapse of the left lung with volume loss and mediastinal shift with possible bronchial narrowing leading to this collapse currently on pip/tazo and Vanco. Status post bronchoscopy yesterday by Dr. Schmitz. Common variable immunodeficiency with expected sequelae followed by Dr. Salo Rodriguez Coronary artery disease Elevated CPK most likely secondary to rhabdomyolysis Seizures COPD Chronic nocturnal hypoxia Port in Chronic use of benzodiazepine 2 mg by mouth 4 times a day. Chronic use of narcotics Plan: Bronchoscopy performed yesterday with improvement post removal of mucous plugging. Repeat chest x-ray this morning. Will discuss with Dr. Schmitz after chest x-ray has been obtained. Continue respiratory support for now Await CPK, may need to adjust fluids. The patient is tolerating IV metoprolol and we will continue the current dose. Continue IV Keppra for history of seizure disorder Patient will need psychiatric evaluation after he is extubated and awake regarding suicide attempt. Continue Lovenox for DVT prophylaxis Continue Protonix for stress ulcer prophylaxis in a patient with history of ulcer who is intubated Greater than 1 hour of critical care time was spent seeing and evaluating the patient. 02/20/17 14:02
[2017-02-20] MEDS: ALPRAZolam 1 MG TABLET PO PRN ×2 (14:44→23:47)
[2017-02-20] MEDS: CALCIUM 600 + VIT D 400 TABLET PO SCH ×2 (15:39→20:40)
[2017-02-20] MEDS: OMEPRAZOLE 20 MG CAPSULE PO SCH (15:40)
[2017-02-20] MEDS: 1/2 NS with KCL 20mEq 1,000 ML IV SCH (15:40)
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
[2017-02-20] MEDS: HYDROCODONE/APAP 5mg/325mg TABLET PO PRN (20:00)
[2017-02-21] MEDS: 1/2 NS with KCL 20mEq 1,000 ML IV SCH (00:11)
[2017-02-21] MEDS: PIPERACILLIN/TAZOBACTAM 3.375 GM in NS 100 ML IV SCH ×2 (02:17→07:34)
[2017-02-21] MEDS: ALBUTEROL/IPRATROPIUM 2.5mg-0.5mg/3ml NEB AEROSOL SCH ×3 (04:05→11:02)
[2017-02-21] MEDS: ALPRAZolam 1 MG TABLET PO PRN (05:19)
[2017-02-21] MEDS: HYDROCODONE/APAP 5mg/325mg TABLET PO PRN (05:20)
[2017-02-21] MEDS: OMEPRAZOLE 20 MG CAPSULE PO SCH ×2 (05:21→05:56)
[2017-02-21 08:57] VITALS: TEMP 97.7
[2017-02-21] MEDS ORDERED: AMOX/CLAV 875 MG/125 MG TABLET PO SCH (09:00)
[2017-02-21] MEDS ORDERED: ASPIRIN *EC* 81 MG TABLET PO SCH (09:00)
[2017-02-21] MEDS: GABAPENTIN 600 MG TABLET PO SCH (09:19)
[2017-02-21] MEDS: ENOXAPARIN 40 MG/0.4 ML INJECTION SQ SCH (09:19)
[2017-02-21] MEDS: CALCIUM 600 + VIT D 400 TABLET PO SCH (09:19)
[2017-02-21] MEDS: LEVETIRACETAM 500 MG TABLET PO SCH (09:19)
[2017-02-21] MEDS: NICOTINE 21 MG PATCH TD PRN (09:19)
[2017-02-21] MEDS: CLOPIDOGREL 75 MG TABLET PO SCH (09:19)
[2017-02-21] MEDS: NICOTINE PATCH REMOVAL TD SCH (09:20)
[2017-02-21] MEDS: LISINOPRIL 20 MG TABLET PO SCH (09:36)
[2017-02-21 11:20] VITALS: RESP 24
--- NOTE | 2017-02-21 11:50 | Discharge Instructions ---
Discharge Plan - Med Rec/Dispo Referrals/Follow Up: David Chowdhury MD [Physician] - Salo Rodriguez MD [Physician] - Cedric Colvin MD [Family Provider] - Additional Instructions: Follow-up with Dr. Chowdhury when discharged from [facility] for follow-up of coronary artery disease. Follow-up with Dr. Salo Rodriguez when discharged from [facility] to restart IgG Follow-up with primary care/pain specialist Dr. Honey Colvin when discharged from [facility] Prescriptions: New Acetaminophen [Tylenol] 1,000 mg PO Q5H PRN tablet PRN Reason: Discomfort Amoxicillin/Potassium Clav [Amox-Clav 875-125 mg Tablet] 875 mg PO Q12HR 3 Days tablet Aspirin *EC* [Ecotrin] 81 mg PO DAILY tablet Hydrocodone/APAP 5/325 [[place] 5/325] 1 tab PO Q4H PRN tablet PRN Reason: Pain Nicotine Patch Removal 1 removal TD DAILY patch ALPRAZolam [Xanax] 1 - 2 mg PO Q6H PRN tablet PRN Reason: Anxiety Calcium 600 + D [Caltrate + D] 1 tab PO BID tablet Nicotine Patch [Nicoderm] 21 mg TD DAILY #30 patch Continue Omeprazole 40 mg PO DAILY #0 EPINEPHrine Pen [Epipen] 0.3 mg IM O PRN #0 PRN Reason: PRN ORDERS Albuterol Sulfate [Proair Hfa] 1 - 2 puff IH Q4-6H PRN #0 PRN Reason: PRN ORDERS Arformoterol Neb [Brovana Neb] 1 vial IH QID PRN #0 PRN Reason: SHORTNESS OF AIR Ofloxacin 0.3% *Eye* Drops [Ocuflox] 1 - 2 drop EACH EAR BID #0 Lisinopril 20 mg PO DAILY #0 ALPRAZolam [Alprazolam] 2 mg PO QID PRN #0 PRN Reason: ANXIETY Metoclopramide HCl 10 mg PO Q6H PRN #0 PRN Reason: NAUSEA Metoprolol Tartrate 50 mg PO BIDWM #0 Silver Sulfadiazine 1 applic TOP DAILY #0 Gemfibrozil 600 mg PO BID #0 Immune Globulin,Gamma (Igg) (Hizentra) 10 gm SQ Q2W #0 Clopidogrel Bisulfate [Clopidogrel] 75 mg PO DAILY #0 Naloxone HCl [Evzio] 1 unit IM O PRN #0 PRN Reason: PRN ORDERS Levetiracetam [Keppra] 1 tab PO BID #60 tab Gabapentin [Neurontin] 600 mg PO TID Naloxegol Oxalate [Movantik] 25 mg PO DAILY Discontinued Atorvastatin Calcium 40 mg PO HS #0 Duloxetine HCl [Cymbalta] 60 mg PO BID #0 Quetiapine Fumarate [Seroquel Xr] 400 mg PO HS #0 Aspirin [Aspirin EC] 325 mg PO DAILY #0 Cyclobenzaprine HCl 10 mg PO TID PRN #0 PRN Reason: SPASMS No Action Hydrocodone/Acetaminophen [Hydrocodon-Acetaminophn 10-325] 1 tab PO Q4HR PRN #0 PRN Reason: PAIN Discharge Instructions/Outpatient Orders: Final Provider Discharge Instructions Location: Determined By Patient - Disposition 65 To Psych Hosp/Unit
[2017-02-21 11:53] VITALS: BP 131/78; O2SAT 96
--- NOTE | 2017-02-21 12:14 | Discharge Summary ---
Discharge Information Date of admission: 02/17/17 23:18 Attending Physician: Carmencita Billingsley MD Primary care physician: Cedric Colvin MD Consults: 02/19/17 Pharmacy Consult [CONS] Routine Pharmacy Consult: Vancomycin Comment: PER DR BILLINGSLEY 02/19/17 19:00 Physician Consult [CONS] Routine Consulting Provider: Tameka Nieves Reason For Exam: suicide attempt Ordering Provider has Notified Robotics Technician: Yes Comment: [facility] nurse called and notified - Discharge Diagnosis Discharge Diagnosis: Acute hypoxic respiratory failure secondary to intentional overdose Atelectasis Possible postobstructive pneumonia Suicide attempt with overdose of Seroquel and muscle relaxants Rhabdomyolysis secondary to prolonged down time after suicide attempt Coronary artery disease with stent placement [place] [address] 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 Extubation on 02/19/[address] Guy Schmitz on 02/18/2017 revealing atelectasis and mucus plugging. Large amount of mucous plugs were therapeutically aspirated until the airways were clear. No endobronchial lesions identified. - Laboratory Labs: 02/21/17 04:20 02/21/17 04:20 CPK on admission was 3000 and cloevr on 02/18/2017 to 7069. CPK has subsequently been trending down and on discharge is 1586. Sputum shows gram-positive cocci but final culture and sensitivity results are pending - Microbiology Microbiology 02/18/17 15:37 Body Fluid, Nos Gram Stain - Final 02/18/17 15:37 Body Fluid, Nos Body Fluid Culture - Preliminary Gram Positive Cocci Gram Positive Cocci#2 02/18/17 01:36 Peripheral/Iv Start Blood Culture - Preliminary No Growth After 3 Days 02/18/17 01:37 Peripheral/Iv Start Blood Culture - Preliminary No Growth After 3 Days 02/18/17 15:37 Bronchial Washing Acid Fast Bacilli Culture & Smear - Preliminary - Radiology Radiology: Chest x-ray on 02/17/2017 Impression: 1. Significant volume loss involving the left lung since previous examination with an elevated diaphragm and shift of mediastinal structures from right to left. This suggests significant atelectasis of the left lung and bronchoscopy and/or CT scanning recommended. 2. Endotracheal tube in good position well above the carinal bifurcation. CT chest 02/17/2017 Impression: 1. Since an old chest radiograph from November 2015 there is now almost complete collapse of the left lung with volume loss and mediastinal shift from right to left. 2. Possible bronchial narrowing leading to this collapse. Rhonchi auscultated would seem worthwhile for better evaluation. 3. Findings were communicated to the ordering clinician by the V rad service on a callback basis. CT head without contrast Impression: 1. Patient now showed significant opacification of the sinuses especially the ethmoids and sphenoid sinuses with also significant nasopharyngeal and oral pharyngeal soft tissue swelling without significant compromise to the airway. 2. No acute intracranial findings. 3. Findings communicated to the ordering clinician by the V rad service. Chest x-ray 02/18/2017 Impression: 1. Patient now showed significant opacification of the sinuses especially the ethmoids and sphenoid sinuses with also significant nasopharyngeal and oral pharyngeal soft tissue swelling without significant compromise to the airway. 2. No acute intracranial findings. 3. Findings communicated to the ordering clinician by the V rad service. Chest x-ray 02/19/2017 Impression: 1. Improved aeration of the left lung with some minimal nodular opacity in the suprahilar region, left basal atelectasis or infiltrate, and parapneumonic effusion. 2. Evidence of prior infectious elements disease. 3. Excellent position of the endotracheal tube. Chest x-ray 02/20/2017 Impression: Evidence for prior granulomatous disease. Mild CHF with possible small left pleural effusion versus left basilar atelectasis or scarring. History of Present Illness HPI: Awais is a 51 year old white male who was brought to the [facility] by EMS with altered LOC. Apparently, he went to [place] with friends last night and they were camping. He took his Seroquel, apparently did not mention to any of his friends any suicidal ideation or give him any indication that anything was wrong. He did not get up this morning, and when friends checked on him and his tent, he was difficult to rouse and they called EMS. He had a GCS of 3, and was bagged, then placed on CPAP en route. He did not come around after admission to the emergency department, and he was subsequently intubated. Urine drug screen was positive for benzodiazepines, methamphetamines, and TCA. His corrected QT interval on EKG was okay. He had an abnormal chest x-ray , and subsequent CT scan of his chest revealed bilateral narrowing of the mainstem bronchi, with nearly complete obstruction on the left with a postobstructive pneumonia. His CK was approximately 3000, the remainder of his laboratory data was unimpressive as reported below. Given his altered mental status, and a remote history of a brain tumor, CT scan of the head was performed and read as unremarkable for acute findings. Dr. Schmitz was consulted from the emergency department, and felt the patient could be admitted to the intensive care unit for pulmonary consultation, possible fiberoptic bronchoscopy in the morning. Objective Vital signs: Temperature 97.7 F 02/21/17 08:00 Pulse Rate 79 02/21/17 11:45 Respiratory Rate 24 02/21/17 11:45 Blood Pressure 131/78 02/21/17 10:00 Pulse Oximetry 96 02/21/17 11:45 Oxygen Delivery Method Room Air Oxygen Flow Rate 2 Fraction of Inspired Oxygen 30 SaO2/FiO2 Ratio 250 Weight: 84.3 kg Comments: Patient is doing well on the day of discharge. He is alert and oriented 3. He states he is very happy with his care and is very willing to go to [place] to receive help with his depression and suicidal thoughts. He denies any shortness of breath. Chest is clear to auscultation. Cardiovascular reveals a regular rate and rhythm. Abdomen is soft and nontender. Extremities are free of edema. Hospital Course This is a general summary of the patient's hospital course. For more details refer to the complete medical record. Hospital course: The patient was admitted on 02/17/2017 with acute hypoxic respiratory failure secondary to an overdose of Seroquel and muscle relaxants. Urine drug screen was positive for try cyclic's, amphetamines, methamphetamines, and benzodiazepines. The patient was intubated and placed on mechanical ventilation secondary to respiratory failure. CT chest on admission showed left lung volume loss and mediastinal shift from right to left as well as possible bronchial narrowing leading to this collapse. On 02/18/2017 the patient underwent bronchoscopy by Dr. Schmitz. The patient had significant mucus plugging and these were aspirated. Afterwards the patient had improved expansion of the left lung. No endobronchial lesions were seen. The patient was started on Unasyn and vancomycin. Sputum cultures and sensitivities are pending at this time. The patient was extubated on 02/19/2017. He has been on room air the past 2 days. He was transitioned from IV antibiotics to oral Augmentin without difficulties. He is continued on his usual breathing treatments. Regarding his respiratory status, he is doing very well.Regarding COPD, the patient should continue his usual breathing treatments. The patient also had elevated CPK which was initially 3000 and then up to the 7000 range. He was given IV fluids and CPK is now down to 1500. His rhabdomyolysis is likely secondary to prolonged down time after his overdose. He no longer requires IV fluids. He is eating and drinking well. Patient has a history of seizure disorder but has had no witnessed seizures. He is on Keppra as an outpatient. He was given IV Keppra while he was intubated and this was switched to oral Keppra. The patient has history of common variable immune deficiency for which she receives subcutaneous IgG every 2 weeks. The patient had called his infectious disease specialist, Dr. Bess recently and told his office that he wanted to stop his treatments and "give up". After the patient was extubated he stated he did want to restart his IgG. Dr. Bess was called and recommended a dose of IVIG during this hospitalization which was given. He recommended that the patient follow-up after discharge and he can resume his subcutaneous IgG The patient has history of coronary artery disease with stent placement in December 2015. The patient was still taking Plavix and aspirin. He has not followed up with Dr. Will is recommended. I did call Dr. Chowdhury's office and his nurse practitioner recommended that he continue the Plavix once daily and aspirin 81 mg once daily and follow-up with him after discharge. Regarding depression, suicidal ideation and recent suicide attempt, the patient was seen by Dr. Nieves, psychiatrist. He recommended inpatient psychiatric treatment. The patient is very willing to undergo inpatient psychiatric treatment and has been accepted at [place]. Regarding pain control, the patient was given Al[place] 5 one by mouth every 4 hours as needed. This is less than his usual home dose which was Al[place] 10 one by mouth every 4 hours when necessary. On admission the patient's [facility] rec reported that he was on alprazolam, but record review from [place] revealed he was on Xanax 2 mg by mouth 4 times a day when necessary. This was restarted to prevent seizures from withdrawal. Further dosage of this medication is up to his psychiatrist at [place]. On 02/21/2017, was felt the patient was stable for transfer to [place] for psychiatric treatment. I did call and speak with Dr. Muñoz the accepting physician at [facility] [place]. Greater than 30 minutes of time was spent on dismissal day. Discharge Plan - Med Rec/Dispo Referrals/Follow Up: David Chowdhury MD [Physician] - Cedric Colvin MD [Family Provider] - Salo Rodriguez MD [Physician] - Additional Instructions: Follow-up with Dr. Chowdhury when discharged from [place] for follow-up of coronary artery disease. Follow-up with Dr. Salo Rodriguez when discharged from [place] to restart IgG Follow-up with primary care/pain specialist Dr. Honey Colvin when discharged from [place] Prescriptions: New Acetaminophen [Tylenol] 1,000 mg PO Q5H PRN tablet PRN Reason: Discomfort Amoxicillin/Potassium Clav [Amox-Clav 875-125 mg Tablet] 875 mg PO Q12HR 3 Days tablet Aspirin *EC* [Ecotrin] 81 mg PO DAILY tablet Hydrocodone/APAP 5/325 [Alpena 5/325] 1 tab PO Q4H PRN tablet PRN Reason: Pain Nicotine Patch Removal 1 removal TD DAILY patch ALPRAZolam [Xanax] 1 - 2 mg PO Q6H PRN tablet PRN Reason: Anxiety Calcium 600 + D [Caltrate + D] 1 tab PO BID tablet Nicotine Patch [Nicoderm] 21 mg TD DAILY #30 patch Continue Omeprazole 40 mg PO DAILY #0 EPINEPHrine Pen [Epipen] 0.3 mg IM O PRN #0 PRN Reason: PRN ORDERS Albuterol Sulfate [Proair Hfa] 1 - 2 puff IH Q4-6H PRN #0 PRN Reason: PRN ORDERS Arformoterol Neb [Brovana Neb] 1 vial IH QID PRN #0 PRN Reason: SHORTNESS OF AIR Ofloxacin 0.3% *Eye* Drops [Ocuflox] 1 - 2 drop EACH EAR BID #0 Lisinopril 20 mg PO DAILY #0 ALPRAZolam [Alprazolam] 2 mg PO QID PRN #0 PRN Reason: ANXIETY Metoclopramide HCl 10 mg PO Q6H PRN #0 PRN Reason: NAUSEA Metoprolol Tartrate 50 mg PO BIDWM #0 Silver Sulfadiazine 1 applic TOP DAILY #0 Gemfibrozil 600 mg PO BID #0 Immune Globulin,Gamma (Igg) (Hizentra) 10 gm SQ Q2W #0 Clopidogrel Bisulfate [Clopidogrel] 75 mg PO DAILY #0 Naloxone HCl [Evzio] 1 unit IM O PRN #0 PRN Reason: PRN ORDERS Levetiracetam [Keppra] 1 tab PO BID #60 tab Gabapentin [Neurontin] 600 mg PO TID Naloxegol Oxalate [Movantik] 25 mg PO DAILY Discontinued Atorvastatin Calcium 40 mg PO HS #0 Duloxetine HCl [Cymbalta] 60 mg PO BID #0 Quetiapine Fumarate [Seroquel Xr] 400 mg PO HS #0 Aspirin [Aspirin EC] 325 mg PO DAILY #0 Cyclobenzaprine HCl 10 mg PO TID PRN #0 PRN Reason: SPASMS No Action Hydrocodone/Acetaminophen [Hydrocodon-Acetaminophn 10-325] 1 tab PO Q4HR PRN #0 PRN Reason: PAIN Discharge Instructions/Outpatient Orders: Final Provider Discharge Instructions Location: Determined By Patient - Disposition 65 To Psych Hosp/Unit
[2017-02-21 13:06] VITALS: PULSE 83
== END 2017-02-21 13:25 | DRG 987 ==
LOC: ED 19:14 → CCU 23:18
PROVIDERS: ADMIT Internal Medicine; ATTEND Internal Medicine

== ENCOUNTER 2018-03-04 15:00 | Observation (INO) ==
--- OUTSIDE RECORDS SUMMARY | 2018-03-04 15:20 | External Medical Summary | Referral Summary ---
:1965 Author Organization [facility] Address [address] [place] [address] Care Team Providers Name Role Phone Marii Jay Jaydelfinaandrew Soliman Primary Care Physician Encounter VC Date(s): 11/22/16 - 11/22/16 [facility] [address] [place] [address]- [place] Discharge Disposition: 01-Home or Self Care Attending Physician: Zacarias Woodson MD Admitting Physician: Zacarias Woodson MD Referring Physician: Zacarias Woodson MD Vital Signs No data available for this section Problem List No data available for this section Allergies, Adverse Reactions, Alerts Substance Reaction Severity Status acetaminophen ITCHING Active oxyCODONE ITCHING Active Medications ALPRAZolam 2 mg oral tablet 2 mg 1 tabs, Oral, TID, as needed for anxiety, 0 Refill(s) Start Date: 12/16/14 Status: Orderedaspirin 0 Refill(s) Start Date: 12/16/14 Status: Orderedatorvastatin Oral, Bedtime (once a day), 0 Refill(s) Start Date: 12/16/14 Status: OrderedBenadryl 0 Refill(s) Start Date: 12/16/14 Status: OrderedBrovana 15 mcg/2 mL inhalation solution 1 Each, NEB, BID, # 60 Each, 0 Refill(s) Start Date: 12/16/14 Status: OrderedCymbalta 60 mg oral delayed release capsule mg caps, Oral, Daily, 0 Refill(s) Start Date: 12/16/14 Status: OrderedEpiPen 2-Erick mg, IntraMuscular, Once, 0 Refill(s) Start Date: 12/16/14 Status: Orderedgemfibrozil 600 mg oral tablet 600 mg 1 tabs, Oral, BID, # 60 tabs, 0 Refill(s) Start Date: 12/16/14 Status: OrderedHizentra mg/kg, SubCutaneous, 0 Refill(s) Start Date: 12/16/14 Status: OrderedHYDROcodone-acetaminophen 10 mg-325 mg oral tablet 1 tabs, Oral, q4hr, as needed for pain, 0 Refill(s) Start Date: 12/16/14 Status: Orderedisosorbide dinitrate 30 mg oral tablet 30 mg 1 tabs, Oral, q6hr, # 120 tabs, 0 Refill(s) Start Date: 12/16/14 Status: Orderedlisinopril 20 mg oral tablet 20 mg 1 tabs, Oral, Daily, # 30 tabs, 0 Refill(s) Start Date: 12/16/14 Status: Orderedmeclizine 25 mg oral tablet 25 mg 1 tabs, Oral, TID, as needed for dizziness, # 30 tabs, 0 Refill(s) Start Date: 12/16/14 Status: Orderedmetoclopramide 10 mg oral tablet See Instructions, 1 tabs Oral q6hr as needed., 0 Refill(s) Start Date: 12/16/14 Status: Orderedmetoprolol tartrate 25 mg oral tablet 25 mg 1 tabs, Oral, BID, # 60 tabs, 0 Refill(s) Start Date: 12/16/14 Status: OrderedNitrostat 0.4 mg sublingual tablet 0.4 mg 1 tabs, SubLingual, q5min, as needed for chest pain, # 100 tabs, 0 Refill (s) Start Date: 12/16/14 Status: Orderedofloxacin 0.3% otic solution 5 drops, Ear-Both, BID, # 5 mL, 0 Refill(s) Start Date: 12/16/14 Status: Orderedomeprazole 40 mg oral delayed release capsule 40 mg 1 caps, Oral, Daily, # 30 caps, 0 Refill(s) Start Date: 12/16/14 Status: OrderedPlavix 75 mg oral tablet 75 mg 1 tabs, Oral, Daily, # 30 tabs, 0 Refill(s) Start Date: 12/16/14 Status: OrderedSEROquel 300 mg oral tablet 300 mg 1 tabs, Oral, Bedtime (once a day), # 30 tabs, 0 Refill(s) Start Date: 12/16/14 Status: OrderedSodium Chloride 0 Refill(s) Start Date: 12/16/14 Status: OrderedTylenol Extra Strength mg, Oral, q6hr, 0 Refill(s) Start Date: 12/16/14 Status: Ordered Results No data available for this section Immunizations No data available for this section Procedures Procedure Date Related Diagnosis Body Site H/O sinus surgery1 Hx of myringotomy2 1x3 sinus surgeries. being the last.2x48 tubes since Social History Social History Type Response Smoking Status Never smoker Assessment and Plan No data available for this section
[2018-03-04] MEDS ORDERED: NS 1,000 ML IV ONE (15:40)
[2018-03-04] MEDS ORDERED: FentaNYL 100 MCG/2 ML INJECTION IVP ONE (15:40)
[2018-03-04] MEDS ORDERED: SALINE FLUSH 10ml SYRINGE IVF PRN (15:40)
[2018-03-04] MEDS ORDERED: ONDANSETRON 4 MG/2 ML INJECTION IVP ONE (15:40)
--- NOTE | 2018-03-04 15:41 | CT Scan Report ---
Indication: fall PROCEDURE: CT head/brain wo con: Encounter: Initial Comparison: July 23, 2017 Technique: Axial CT images through the head were performed without contrast. Iterative Reconstruction dose reducing technique was utilized. FINDINGS: The ventricles are of normal size, shape, and configuration for the patient's age. There is no evidence of acute intracranial hemorrhage, midline displacement, or mass effect. There are scattered areas of low attenuation in the white matter which most likely represent changes of chronic microvascular ischemia. The CT attenuation of the brain parenchyma is otherwise normal within the cerebellum, brain stem, and cerebral hemispheres. There are no definite fractures of the skull base, calvarium, or visualized portion of the midface. Prior right mastoid surgery. Orthopedic hardware in the left side zygomatic arch. IMPRESSION: No CT evidence of acute traumatic intracranial injury. .
--- NOTE | 2018-03-04 16:52 | Emergency Department Report ---
Fall HPI - General Chief Complaint: Fall Stated Complaint: Fell when having seizure and hit head and back deni Time Seen by Provider: 03/04/18 15:15 - History of Present Illness HPI Narrative: 55-year-old gentleman presents status post fall. 3 days ago he fell backwards and struck his head against a glass table. He also struck his back. He does not know how long he was "out" but knows that it was "a while". He does not remember much of that day. The next 2 days, he has been very tired with headache and has had difficulty remembering and speaking. He spoke with his son today and his son noticed a change in his speech pattern. Patient has previous L5-S1 spinal cord injury and uses a cane due to right-sided weakness. He has difficulty knowing if there is a change in his weakness right versus left, but is certainly noticed overall increase in weakness with some difficulty in balance since he fell. He has had very little to eat or drink in the last 3 days. Has had some nausea during this period. He did not take his medications the first or second day but has restarted them as of today. No difficulty swallowing. Does have seizure disorder and takes Keppra. He believes he probably had a seizure at the time he fell - Related Data Home Medications Medication Instructions Recorded Confirmed Omeprazole 40 mg PO DAILY #0 01/31/12 03/04/18 Albuterol Sulfate [Proair Hfa] 1 - 2 puff IH Q4-6H PRN #0 01/12/13 03/04/18 Clopidogrel Bisulfate [Clopidogrel] 75 mg PO DAILY #0 03/23/15 03/04/18 ALPRAZolam [Xanax] 1 mg PO TID PRN 07/23/17 03/04/18 Aspirin 325 mg PO DAILY 07/23/17 03/04/18 Bethanechol [Urecholine] 10 mg PO TIDWM 07/23/17 03/04/18 Duloxetine [Cymbalta] 60 mg PO DAILY 07/23/17 03/04/18 Gabapentin 600 mg PO TID 07/23/17 03/04/18 Hydrocodone/APAP 10325 [[place] 1 tab PO Q4H PRN 07/23/17 03/04/18 10/325] Lisinopril [Prinivil] 20 mg PO DAILY 07/23/17 03/04/18 Metoclopramide HCl [Reglan] 10 mg PO Q6H PRN 07/23/17 03/04/18 Metoprolol Tartrate [Lopressor] 25 mg PO BID 07/23/17 03/04/18 Quetiapine [SEROquel] 200 mg PO HS 07/23/17 03/04/18 levETIRAcetam [Levetiracetam] 1,000 mg PO BID 07/23/17 03/04/18 Atorvastatin [Lipitor] 40 mg PO DAILY 03/04/18 03/04/18 Cyclobenzaprine [Flexeril] 10 mg PO TID PRN 03/04/18 03/04/18 Gemfibrozil [Lopid] 600 mg PO BID 03/04/18 03/04/18 Tamsulosin [Flomax] 0.4 mg PO HS 03/04/18 03/04/18 Allergies Allergy/AdvReac Type Severity Reaction Status Date / Time morphine Allergy Unknown RASH Verified 03/04/18 15:22 oxycodone Allergy Unknown Verified 03/04/18 15:22 tramadol Allergy Unknown RASH Verified 03/04/18 15:22 Review of Systems All systems: reviewed and negative except as stated PFSH Patient Stated Medical History Coronary Artery Disease Yes Hypertension Yes Other Cardiology Yes: STENTS 2012,11/29/15 Asthma Yes Bronchitis Yes Chronic Obstructive Pulmonary Yes Disease (COPD) Gastroesophageal Reflux Yes Disease Ulcer Yes Hx Kidney Stones Yes Hx Renal Disease Yes Other Hematologic Yes: COMBINED VARIABLE IMMUNODEFICIENCY DISORDER Other Musculoskeletal Yes: SPINAL CORD INJURY Other Infectious Yes: HX IGG INFUSIONS-SEE'S DR BECKWITH Bipolar Disorder Yes Depression Yes Schizophrenia Yes Other Behavioral Health Yes: HAS ATTEMPTED SUICIDE [facility] OVER[facility]SE [facility] Medical History (Last Updated 08/14/17 @ 12:57 by Roxana Cabello) Back pain (Chronic Medical) Depression (Chronic Medical) Seizure (Chronic Medical) Sinusitis (Chronic Medical) Medical History Updates: Bipolar d/o. Seizures. Brain tumor. Chronic pain. GERDHL. HTN. CAD. COPD. Asthma. GERD. Gastric ulcers. Kidney stones. SAHU. Chronic back pain. Bipolar d/o. Brain tumor. HTN Surgical History: His son thinks he had a resection of brain tumor in [place] many years ago but he is not sure - Social History Smoking status: Current every day smoker Substance use type: does not use Alcohol intake frequency: does not drink Current residence: Homeless Physical Exam - Limitations Limitations: no limitations - General General appearance: alert - Normal Exams: Chest/Respirations:: Clear all choi, with good airflow, and symmetry bilaterally Cardiovascular:: Regular rate and rhythm, without murmur or gallop, Pulses 2+ all extremities, capillary refill, <2 seconds all extremities Abdomen:: Bowel sounds positive, soft, non-tender, non-distended, no hepatosplenomegaly, masses or bruits noted Neurological:: Patient is alert, and oriented (3.), cranial nerves (no change from usual with some droop on left side of mouth due to cleft palate reconstructive surgery.), motor/sensory/cerebellar, exams w/o gross deficits, to observation (able to move all 4 extremities. With 5 out of 5 strength. Equalizer Operator strength appropriate and equal bilateral. DTRs 2+ all extremities except right lower extremity which is 1+) Course Vital Signs Temperature 98.7 F 03/04/18 15:02 Pulse Rate 110 H 03/04/18 15:02 Respiratory Rate 18 03/04/18 15:02 Blood Pressure 101/63 03/04/18 15:02 Pulse Oximetry 100 03/04/18 15:02 Temperature 98.7 F 03/04/18 15:02 Pulse Rate 95 03/04/18 16:15 Respiratory Rate 16 03/04/18 16:15 Blood Pressure 103/62 03/04/18 16:15 Pulse Oximetry 98 03/04/18 16:15 Fall - MDM Narrative Medical decision making narrative: On arrival, patient was classified as type II trauma. CT head was ordered stat and return negative for bleed or intracranial damage. No skull fracture noted. Due to neck and back pain and previous lumbar damage., CT cervical, thoracic and lumbar spines were ordered. Chest CT was also ordered due to trauma to back. Cervical, thoracic and lumbar spines showed no acute damage. Eighth and ninth rib fractures noted posterior along with pulmonary contusion. Labs returned showing appropriate CBC with creatinine 1.2 and CK is greater than 16, 000. Hospitalist contacted and patient will be admitted for IV hydration to treat rhabdomyolysis. Other issues will be observed as well. - Differential Diagnosis Likely: syncope, compression fracture, concussion with loss of consciousness, concussion without loss of consciousness - Medical Records Attestation: I reviewed the patient's medical records. - Lab Data Attestation: I reviewed the patient's lab results. Result diagrams: 03/04/18 15:49 03/04/18 15:49 Lab Results 03/04/18 03/04/18 03/04/18 Range/Units 15:49 15:49 16:52 WBC 10.3 (4.5-11.0) T/MM3 RBC 4.45 L (4.50-5.90) M/MM3 Hgb 13.5 (13.5-17.5) GM/DL Hct 40.2 L (41-53) % MCV 90.3 (80-100) UM3 MCH 30.3 (26-34) UUG MCHC 33.6 (31-37) GM/DL RDW Std Deviation 42.1 (36.9-50.2) FL Plt Count 190 (130-400) T/MM3 MPV 9.8 (9.4-12.4) UM3 Immature Gran % (Auto) 1.5 H (0.0-0.5) % Neut % (Auto) 68.1 H (33-66) % Lymph % (Auto) 16.6 L (23-45) % [place] % (Auto) 11.0 H (0-9.0) % Eos % (Auto) 2.7 (0-4) % Baso % (Auto) 0.1 (0-2) % Neut # (Auto) 7.0 (1.8-7.7) T/MM3 Lymph # (Auto) 1.7 (1-4.8) T/MM3 [place] # (Auto) 1.1 H (0-0.8) T/MM3 Eos # (Auto) 0.3 (0-0.5) T/MM3 Baso # (Auto) 0.0 (0-0.2) T/MM3 Abs Immat Gran (auto) 0.15 H (0.00-0.03) T/MM3 Turbidity < 20 (0-20) Sodium 139 (136-146) MEQ/L Potassium 4.0 (3.6-5) MEQ/L Chloride 103 (98-107) MEQ/L Carbon Dioxide 29 (22-30) MEQ/L Anion Gap 7 (5-15) meq/L BUN 29.0 H (9-20) MG/DL Creatinine 1.2 (0.8-1.5) mg/dL Estimated Creat Clear 82 (>50) mL/min GFR Calculation 64 (>60) mL/min BUN/Creatinine Ratio 24 (6-26) RATIO Glucose 91 (75-110) MG/DL Calculated Osmolality 274 (261-280) MOSM/KG Calcium 8.8 (8.4-10.2) MG/DL Total Bilirubin 1.00 (0.20-1.30) MG/DL Icterus Index < 2 (0-7) AST 741 H (17-59) U/L ALT 187 H (1-50) U/L Alkaline Phosphatase 85 (38-126) U/L Total Creatine Kinase 42794 H (55-170) U/L Troponin I 0.035 (0-0.12) ng/ml Total Protein 6.5 (6.3-8.2) g/dL Albumin 3.9 (3.5-5.0) g/dL Globulin 2.6 (2.4-3.6) G/DL Albumin/Globulin Ratio 1.5 (1.1-2.2) RATIO Plasma Lactate 1.6 (0.6-2.2) MMOL/L Specimen Hemolysis < 15 (0-25) Ur Collection Type Urine, void-cc/notcc Urine Color Yellow (YELLOW) Urine Clarity Clear Urine pH 5.5 (5.0-8.0) Ur Specific [place] <=1.005 L (1.015-1.025) Urine Protein Negative (NEGATIVE) Urine Glucose (UA) Negative (NEGATIVE) Urine Ketones Negative (NEGATIVE) Urine Occult Blood Negative (NEGATIVE) Urine Nitrate Negative (NEGATIVE) Urine Bilirubin Negative (NEGATIVE) Urine Urobilinogen 0.2 (NORMAL) EU/DL Ur Leukocyte Esterase Negative (NEGATIVE) Urinalysis Comment Microscopic not ind. Urine Opiates Screen (Negative) ng/mL Ur Oxycodone Screen (Negative) ng/mL Urine Methadone Screen (Negative) ng/mL Ur Propoxyphene Screen (Negative) ng/mL Ur Barbiturates Screen (Negative) ng/mL U Tricyclic Antidepress (Negative) ng/mL Ur Phencyclidine Scrn (Negative) ng/mL Ur Amphetamines Screen (Negative) ng/mL U Methamphetamines Scrn (Negative) ng/mL U Benzodiazepines Scrn (Negative) ng/mL Urine Cocaine Screen (Negative) ng/mL U Cannabinoids Screen (Negative) ng/mL Ur Drug Screen Confirm Alcohol, Quantitative <10 (<10) mg/dL 03/04/18 03/04/18 Range/Units 16:52 16:52 WBC (4.5-11.0) T/MM3 RBC (4.50-5.90) M/MM3 Hgb (13.5-17.5) GM/DL Hct (41-53) % MCV (80-100) UM3 MCH (26-34) UUG MCHC (31-37) GM/DL RDW Std Deviation (36.9-50.2) FL Plt Count (130-400) T/MM3 MPV (9.4-12.4) UM3 Immature Gran % (Auto) (0.0-0.5) % Neut % (Auto) (33-66) % Lymph % (Auto) (23-45) % [place] % (Auto) (0-9.0) % Eos % (Auto) (0-4) % Baso % (Auto) (0-2) % Neut # (Auto) (1.8-7.7) T/MM3 Lymph # (Auto) (1-4.8) T/MM3 [place] # (Auto) (0-0.8) T/MM3 Eos # (Auto) (0-0.5) T/MM3 Baso # (Auto) (0-0.2) T/MM3 Abs Immat Gran (auto) (0.00-0.03) T/MM3 Turbidity (0-20) Sodium (136-146) MEQ/L Potassium (3.6-5) MEQ/L Chloride (98-107) MEQ/L Carbon Dioxide (22-30) MEQ/L Anion Gap (5-15) meq/L BUN (9-20) MG/DL Creatinine (0.8-1.5) mg/dL Estimated Creat Clear (>50) mL/min GFR Calculation (>60) mL/min BUN/Creatinine Ratio (6-26) RATIO Glucose (75-110) MG/DL Calculated Osmolality (261-280) MOSM/KG Calcium (8.4-10.2) MG/DL Total Bilirubin (0.20-1.30) MG/DL Icterus Index (0-7) AST (17-59) U/L ALT (1-50) U/L Alkaline Phosphatase (38-126) U/L Total Creatine Kinase (55-170) U/L Troponin I (0-0.12) ng/ml Total Protein (6.3-8.2) g/dL Albumin (3.5-5.0) g/dL Globulin (2.4-3.6) G/DL Albumin/Globulin Ratio (1.1-2.2) RATIO Plasma Lactate (0.6-2.2) MMOL/L Specimen Hemolysis (0-25) Ur Collection Type Urine Color (YELLOW) Urine Clarity Urine pH (5.0-8.0) Ur Specific [place] (1.015-1.025) Urine Protein (NEGATIVE) Urine Glucose (UA) (NEGATIVE) Urine Ketones (NEGATIVE) Urine Occult Blood (NEGATIVE) Urine Nitrate (NEGATIVE) Urine Bilirubin (NEGATIVE) Urine Urobilinogen (NORMAL) EU/DL Ur Leukocyte Esterase (NEGATIVE) Urinalysis Comment Urine Opiates Screen Positive (Negative) ng/mL Ur Oxycodone Screen Negative (Negative) ng/mL Urine Methadone Screen Negative (Negative) ng/mL Ur Propoxyphene Screen Negative (Negative) ng/mL Ur Barbiturates Screen Negative (Negative) ng/mL U Tricyclic Antidepress Positive (Negative) ng/mL Ur Phencyclidine Scrn Negative (Negative) ng/mL Ur Amphetamines Screen Negative (Negative) ng/mL U Methamphetamines Scrn Negative (Negative) ng/mL U Benzodiazepines Scrn Positive (Negative) ng/mL Urine Cocaine Screen Negative (Negative) ng/mL U Cannabinoids Screen Negative (Negative) ng/mL Ur Drug Screen Confirm Sent out Alcohol, Quantitative (<10) mg/dL - Radiology Data Attestation: I reviewed the patient's radiology results. Disposition Clinical Impression: Rhabdomyolysis, Closed head injury, Concussion with loss of consciousness Disposition: 02 To [facility] [place] Acute Care Condition: Stable Prescriptions: No Action Omeprazole 40 mg PO DAILY #0 Albuterol Sulfate [Proair Hfa] 1 - 2 puff IH Q4-6H PRN #0 PRN Reason: PRN ORDERS Quetiapine [SEROquel] 200 mg PO HS Duloxetine [Cymbalta] 60 mg PO DAILY Aspirin 325 mg PO DAILY ALPRAZolam [Xanax] 1 mg PO TID PRN PRN Reason: Anxiety levETIRAcetam [Levetiracetam] 1,000 mg PO BID Hydrocodone/APAP 10/325 [[place] 10/325] 1 tab PO Q4H PRN PRN Reason: Pain Metoprolol Tartrate [Lopressor] 25 mg PO BID Metoclopramide HCl [Reglan] 10 mg PO Q6H PRN PRN Reason: Prn Orders Lisinopril [Prinivil] 20 mg PO DAILY Bethanechol [Urecholine] 10 mg PO TIDWM Tamsulosin [Flomax] 0.4 mg PO HS Cyclobenzaprine [Flexeril] 10 mg PO TID PRN PRN Reason: Prn Orders Atorvastatin [Lipitor] 40 mg PO DAILY Gemfibrozil [Lopid] 600 mg PO BID Clopidogrel Bisulfate [Clopidogrel] 75 mg PO DAILY #0 Gabapentin 600 mg PO TID Referrals: Antonia Colvin APRN [Nurse Practitioner] - Cedric Colvin MD [Primary Care Provider] - Time of Disposition: 17:44 - Seen By: physician
--- NOTE | 2018-03-04 17:16 | CT Scan Report ---
Indication: fall with back pain PROCEDURE: CT lumbar spine wo con: Encounter: Initial Comparison: None Technique: Axial noncontrast CT imaging of the lumbar spine was performed with coronal and sagittal two-dimensional reformats. Automated Exposure Control and Iterative Reconstruction dose reducing techniques were utilized. FINDINGS: The alignment of the lumbar spine is normal for the patient's age. No fractures or traumatic subluxation of the lumbar spine is evident. The facet joints are well aligned with preservation of the intervertebral disk and facet joints. There are age appropriate degenerative changes within the intervertebral disks and facet joints in the lower lumbar region. There is no evidence of significant spinal stenosis, foraminal compromise, disk herniation, or epidural hematoma. The paraspinal soft tissues and spinal canal are otherwise unremarkable in appearance. IMPRESSION: No evidence for acute traumatic injury of the lumbar spine. .
--- NOTE | 2018-03-04 17:18 | CT Scan Report ---
Indication: fall with neck pain PROCEDURE: CT cervical spine wo con: Encounter: Initial Comparison: March 22, 2016 Technique: Axial CT images through the cervical spine were performed without contrast. Coronal and sagittal reformatted images were also obtained. Automated Exposure Control and Iterative Reconstruction dose reducing techniques were utilized. FINDINGS: The alignment of the cervical spine is normal. Multilevel degenerative changes are present. There is no evidence of acute fracture or subluxation of the cervical spine. The facet joints are well aligned with preservation of the intervertebral disk and facet joints. The atlantoaxial articulation, dens, and upper cervical spine demonstrate no subluxation. There is no evidence of significant spinal stenosis, foraminal compromise, or significant disk herniation. Chronic right maxillary sinusitis. IMPRESSION: No acute traumatic abnormality of the cervical spine. .
--- NOTE | 2018-03-04 17:24 | CT Scan Report ---
Indication: fall PROCEDURE: CT chest wo con: Encounter: Initial Comparison: Chest CT dated February 17, 2017 Technique: Axial CT images were performed through the chest without intravenous contrast. Coronal and sagittal two-dimensional reformats. Automated Exposure Control and Iterative Reconstruction dose reducing techniques were utilized. Findings: No pneumothorax. Areas of airspace opacities seen in both lungs could represent atelectasis or possibly pulmonary contusion. Calcified granuloma in the right upper lobe. Small right effusion. No pulmonary masses. The central airways are patent. Patulous esophagus. No axillary or mediastinal adenopathy. Heart size is upper limits of normal without pericardial effusion. The upper abdomen shows an intramuscular lipoma in the right flank but no acute findings. Mild motion artifact at the lower aspect of the exam. Subtle probable nondisplaced fractures of the right eighth and ninth lateral ribs. Impression: 1. Probable right eighth and ninth lateral rib fractures. 2. Areas of airspace disease could represent atelectasis versus pulmonary contusion versus residual from the patient's prior significant consolidative and masslike process seen on the 2017 study. .
--- NOTE | 2018-03-04 17:35 | CT Scan Report ---
Indication: fall with back pain PROCEDURE: CT thoracic spine wo con: Encounter: Initial Comparison: None: Technique: Axial noncontrast CT imaging of the thoracic spine was performed with coronal and sagittal two-dimensional reformats. Automated Exposure Control and Iterative Reconstruction dose reducing techniques were utilized. FINDINGS: Alignment of the thoracic spine is normal for the patient's age. There are minimal, age appropriate, degenerative changes within the intervertebral disk and facet joints in the thoracic spine. No fractures are evident in the thoracic spine. The vertebral bodies and facet joints are normally aligned. There is no evidence of significant spinal stenosis, foraminal compromise, epidural hematoma, or significant disk herniation. IMPRESSION: No acute traumatic abnormality of the thoracic spine. .
[2018-03-04] MEDS ORDERED: METOCLOPRAMIDE 10mg/2ml INJECTION IVP PRN (19:08)
[2018-03-04] MEDS ORDERED: ACETAMINOPHEN 325 MG TABLET PO PRN (19:08)
[2018-03-04] MEDS ORDERED: ONDANSETRON 4 MG/2 ML INJECTION IVP PRN (19:08)
[2018-03-04] MEDS ORDERED: HYDROCODONE/APAP 5mg/325mg TABLET PO PRN (19:08)
[2018-03-04 19:14] VITALS: BMI 28.5
[2018-03-04] MEDS ORDERED: ALPRAZolam 1 MG TABLET PO PRN (19:14)
[2018-03-04] MEDS: LR 1,000 ML IV SCH ×2 (19:20→23:25)
--- NOTE | 2018-03-04 19:23 | History & Physical Report ---
History of Present Illness Date: 03/04/18 HPI: 52yo male with hx of a seizure disorder first diagnosed about 3 years ago, and is s/p resection of brain tumors x 2, presents after having an event which pt thinks is a seizure around 3 days ago, which left him laying on the ground after hitting his head. He recalls a tingling feeling which is a prodrome for his seizures in the past. twin is unsure how long he was unconscious. He has been taking his keppra as prescribed. No known loss of bowel or bladder function , and nobody was around to witness the event. In these 3 days, he has been getting around the house some, taking meds, although he has been somewhat confused with altered speech. Neighbors were concerned when he didn't open his door, and called the police. On arrival, pt didn't want to be taken in by ambulance, so his son brought him to the ER. In the ER, he noted that he's had very little to eat or drink in the last few days. His CPK was elevated and fluids given. For me, he notes ongoing pain on his left side ever since the fall. Notes a headache, with no vision changes currently. Otherwise no N/V/F/C/SOB/edema. He notes that he had a rice heater which he was laying on, which explains the mathews on his back. Review of Systems All systems PM: 10-point ROS was reviewed, no additional remarkable complaints except - Constitutional Constitutional: Absent: chills, fever(s) - EENMT Eyes: Absent: change in vision, diplopia, pain Ears: Absent: ear pain Mouth/Throat: Absent: sore throat - Cardiovascular Cardiovascular: Present: chest pain (From rib fractures. ). Absent: palpitations, edema Vascular: Absent: pedal edema - Respiratory Respiratory: Absent: cough, dyspnea, wheezing - Gastrointestinal Gastrointestinal: Absent: abdominal pain, diarrhea, hematochezia, melena, nausea , vomiting - Genitourinary Genitourinary: Absent: dysuria - Musculoskeletal Musculoskeletal: Absent: arthralgias, limited range of motion, myalgias - Integumentary/Breasts Integumentary: Present: rash (Notes painful mathews to his back in several areas. ). Absent: lesions, jaundice - Neurological Neurological: Present: abnormal speech, confusion. Absent: dizziness, focal weakness - Psychiatric Psychiatric: Present: anxiety, depression - Endocrine Endocrine: Absent: palpitations, polyuria - Allergic/Immunologic Allergic/Immunologic: Absent: tongue swelling, throat swelling Past Medical History Medical History: Medical History (Last Updated 08/14/17 @ 12:57 by Roxana Cabello) Back pain Depression Seizure Sinusitis Medical History Updates: Bipolar d/o. Seizures. Brain tumor x 2 s/p resection. Schizophrenia. GERD. HTN. CAD. COPD. Asthma. GERD. Gastric ulcers. Kidney stones. SAHU. Chronic back pain. Bipolar d/o. HTN Surgical History: REsection of brain tumor. In [place]. 48 surgeries on right ear. Facial reconstruction. Cleft lip. Bilateral hernia. Family History: As Above - Social History Smoking status: Current every day smoker (3 cigs per day.) Medications Home Medications Medication Instructions Recorded Confirmed Type Omeprazole 40 mg PO DAILY #0 01/31/12 03/04/18 History Albuterol Sulfate [Proair Hfa] 1 - 2 puff IH Q4-6H PRN #0 01/12/13 03/04/18 History Clopidogrel Bisulfate [Clopidogrel] 75 mg PO DAILY #0 03/23/15 03/04/18 History ALPRAZolam [Xanax] 1 mg PO TID PRN 07/23/17 03/04/18 History Aspirin 325 mg PO DAILY 07/23/17 03/04/18 History Bethanechol [Urecholine] 10 mg PO TIDWM 07/23/17 03/04/18 History Duloxetine [Cymbalta] 60 mg PO DAILY 07/23/17 03/04/18 History Gabapentin 600 mg PO TID 07/23/17 03/04/18 History Hydrocodone/APAP 10/325 [[place] 1 tab PO Q4H PRN 07/23/17 03/04/18 History 10/325] Lisinopril [Prinivil] 20 mg PO DAILY 07/23/17 03/04/18 History Metoclopramide HCl [Reglan] 10 mg PO Q6H PRN 07/23/17 03/04/18 History Metoprolol Tartrate [Lopressor] 25 mg PO BID 07/23/17 03/04/18 History Quetiapine [SEROquel] 200 mg PO HS 07/23/17 03/04/18 History levETIRAcetam [Levetiracetam] 1,000 mg PO BID 07/23/17 03/04/18 History Atorvastatin [Lipitor] 40 mg PO DAILY 03/04/18 03/04/18 History Cyclobenzaprine [Flexeril] 10 mg PO TID PRN 03/04/18 03/04/18 History Gemfibrozil [Lopid] 600 mg PO BID 03/04/18 03/04/18 History Tamsulosin [Flomax] 0.4 mg PO HS 03/04/18 03/04/18 History Allergies Allergy/AdvReac Type Severity Reaction Status Date / Time morphine Allergy Unknown RASH Verified 03/04/18 15:22 oxycodone Allergy Unknown Verified 03/04/18 15:22 tramadol Allergy Unknown RASH Verified 03/04/18 15:22 Exam Vital Signs: Temperature 98.7 F 03/04/18 15:02 Pulse Rate 105 H 03/04/18 18:15 Respiratory Rate 18 03/04/18 18:15 Blood Pressure 151/87 H 03/04/18 18:15 Pulse Oximetry 98 03/04/18 18:15 Height/Weight/BMI: Height 5 ft 10 in Weight 90.1 kg Body Mass Index 28.5 - Constitutional Present: no acute distress, well developed - Routine HEENT Exam Head: Present: normocephalic, atraumatic Eye: Present: EOMI, PERRL ENT: Present: mucous membranes moist, oropharynx clear, external ear normal - Routine Neck Exam Present: supple. Absent: lymphadenopathy - Routine Respiratory Exam Present: CTA bilaterally. Absent: wheezes, crackles - Routine Cardiovascular Exam Present: RRR. Absent: murmur, gallop, rubs - Routine Abdominal Exam Present: soft, normoactive bowel sounds, non distended, non tender. Absent: organomegaly - Routine Extremities Exam Present: full ROM, normal capillary refill. Absent: cyanosis, edema - Routine Skin Exam Present: intact, dry, rash (Pt has an area to the right of midline on his back with painful superficial escars and surrounding erythema. ALso has a circular patch on his left posterior shoulder which appears burned. No purulence. ). Absent: jaundice - Routine Neurological Exam Present: alert, oriented X3, CN II-XII intact, moving all extremities (5/5 strength in all extremities). Absent: altered mental status - Routine Psychiatric Exam Present: cooperative. Absent: good insight, depressed, anxious Results - Labs CBC & Chem 7: 03/04/18 15:49 03/04/18 15:49 - Impressions CT Chest: 1. Probable right eighth and ninth lateral rib fractures. 2. Areas of airspace disease could represent atelectasis versus pulmonary contusion versus residual from the patient's prior significant consolidative and masslike process seen on the [address]: he ventricles are of normal size, shape, and configuration for the patient's age. There is no evidence of acute intracranial hemorrhage, midline displacement, or mass effect. There are scattered areas of low attenuation in the white matter which most likely represent changes of chronic microvascular ischemia. The CT attenuation of the brain parenchyma is otherwise normal within the cerebellum, brain stem, and cerebral hemispheres. There are no definite fractures of the skull base, calvarium, or visualized portion of the midface. Prior right mastoid surgery. Orthopedic hardware in the left side zygomatic arch. CT spine- No evidence for acute traumatic injury of the lumbar, thoracic, or cervical spine. Assessment and Plan Assessment and Plan: Generic Name Dose Route Start Last Admin Trade Name Freq PRN Reason Stop Dose Admin Acetaminophen 650 mg 03/04/18 19:08 Tylenol PO Q4H PRN Discomfort Hydrocodone Bitart/Acetaminophen 1 tab 03/04/18 19:08 [place] 5/325 PO Q6H PRN Pain Alprazolam 1 mg 03/04/18 19:14 Xanax PO TID PRN Anxiety Aspirin 325 mg 03/04/18 19:15 Asa PO DAILY [facility] Bethanechol Chloride 10 mg 03/05/18 08:00 Urecholine PO TIDWM MELVIN Clopidogrel Bisulfate 75 mg 03/04/18 19:15 Plavix PO DAILY [facility] Duloxetine HCl 60 mg 03/04/18 19:15 Cymbalta PO DAILY [facility] Enoxaparin Sodium 40 mg 03/04/18 19:15 Lovenox SQ DAILY MELVIN Gabapentin 600 mg 03/04/18 21:00 Neurontin PO TID MELVIN Gemfibrozil 600 mg 03/04/18 21:00 Lopid PO BID MELVIN Lactated Ringer's 1,000 mls @ 200 mls/hr 03/04/18 19:15 03/04/18 19:20 Lactated Ringers IV 200 mls/hr .Q5H MELVIN Administration Lisinopril 20 mg 03/05/18 09:00 Prinivil PO DAILY MELVIN Metoclopramide HCl 5 mg 03/04/18 19:08 Reglan IVP Q6H PRN Metoprolol Tartrate 25 mg 03/04/18 21:00 Lopressor PO BID MELVIN Non-Formulary Medication 1,000 mg 03/04/18 21:00 Levetiracetam [Levetiracetam] PO BID MELVIN Non-Formulary Medication 40 mg 03/04/18 19:30 Omeprazole [Omeprazole] PO DAILY MELVIN Ondansetron HCl 4 mg 03/04/18 19:08 Zofran IVP Q6H PRN Nausea &/or vomiting Quetiapine Fumarate 200 mg 03/04/18 21:00 Seroquel PO HS MELVIN Sodium Chloride 10 - 80 ml 03/04/18 15:40 03/04/18 15:58 Iv Flush IVF 10 ml PRN PRN Administration Flushing Tamsulosin HCl 0.4 mg 03/04/18 21:00 Flomax PO HS MELVIN Discontinued Medications Generic Name Dose Route Start Last Admin Trade Name Freq PRN Reason Stop Dose Admin Fentanyl 50 mcg 03/04/18 15:40 03/04/18 15:59 Fentanyl IVP 03/04/18 15:41 50 mcg O ONE Administration Sodium Chloride 1,000 mls @ 1,000 mls/hr 03/04/18 15:40 03/04/18 16:58 Normal Saline IV 03/04/18 16:39 Infused .Q1H ONE Infusion Ondansetron HCl 4 mg 03/04/18 15:40 03/04/18 16:00 Zofran IVP 03/04/18 15:41 4 mg O ONE Administration 52yo male with: Rhabdomyolysis: Likely due to prolonged pressure while being down, in addition to seizure/ convulsions, and possibly statin. Cr 1.2. Hold statin. Give LR @200ml/hr, recheck CPK in am. Seizure: History brain tumors x 2. Obtain MRI brain with and without contrast. Mathews: Consistent with 2nd degree mathews as they are painful. Does not appear infected. Monitor for now. Consult wound and skin. Rib fractures: Pain control. Conservative management. Depression: Cont cymbalta Anxiety: Cont home xanax. Bipolar/Schizophrenia: Cont seroquel. FEN: Gen diet. Proph: Lovenox. Code status: DNR. Dispo: Obs for now. - Physician Narrative Narrative: Date: 03/04/18 Time: 1919 Hospital Course Summary Disclaimer: The visit summary below is not to be considered part of the above Progress Note.
[2018-03-04] MEDS ORDERED: NON-FORMULARY MEDICATION 1 EACH EACH (Omeprazole [Omeprazole] 40 MG) PO SCH (19:30)
[2018-03-04] MEDS: ASPIRIN 325 MG TABLET PO SCH (20:44)
[2018-03-04] MEDS: ENOXAPARIN 40 MG/0.4 ML INJECTION SQ SCH (20:44)
[2018-03-04] MEDS: GABAPENTIN 300 MG CAPSULE PO SCH (20:44)
[2018-03-04] MEDS: CLOPIDOGREL 75 MG TABLET PO SCH (20:44)
[2018-03-04] MEDS: DULOXETINE 60 MG CAPSULE PO SCH (20:53)
[2018-03-04] MEDS ORDERED: QUETIAPINE 200 MG TABLET PO SCH (21:00)
[2018-03-04] MEDS ORDERED: GEMFIBROZIL 600 MG TABLET PO SCH (21:00)
[2018-03-04] MEDS ORDERED: LEVETIRACETAM 1000 MG PO SCH (21:00)
[2018-03-04] MEDS ORDERED: TAMSULOSIN 0.4 MG CAPSULE PO SCH (21:00)
[2018-03-05] MEDS: LR 1,000 ML IV SCH (04:47)
[2018-03-05] MEDS ORDERED: SALINE FLUSH 10ml SYRINGE ONE (06:00)
[2018-03-05] MEDS ORDERED: ALPRAZolam 0.5 MG TABLET PO PRN ×2 (06:10→06:15)
[2018-03-05] MEDS ORDERED: OMEPRAZOLE 20 MG CAPSULE PO SCH (06:30)
[2018-03-05] MEDS ORDERED: BETHANECHOL 10 MG TABLET PO SCH (06:30)
[2018-03-05] MEDS ORDERED: GEMFIBROZIL 600 MG TABLET PO SCH (07:30)
[2018-03-05 08:10] VITALS: BP 125/69; PULSE 90; RESP 18; TEMP 96.3; O2SAT 96
--- NOTE | 2018-03-05 08:42 | Magnetic Resonance Report ---
Indication: Seizure, history of brain tumors, prior right ear surg. PROCEDURE: MR brain/iac wo/w con: Encounter: Initial Comparisons: CT head from yesterday Technique: Multiplanar, multisequence, MR imaging of the head with and without contrast was acquired. Special sequences were performed with attention to the internal auditory canals. Contrast: 17 mL of ProHance FINDINGS: IACs: Anterior auditory canals appear normal. The cranial nerves VII and VIII appear normal bilaterally. No areas of abnormal enhancement in them or the cerebellopontine angles. The visualized cranial nerves V and appear normal. The semicircular canals and cochleae appear normal bilaterally. Brain: The ventricles are of normal size, shape, and contour for the patient's age. The brain stem, cerebellum, and cerebral hemispheres have a normal morphologic appearance as well as MR signal intensity on all pulse sequences. Following intravenous administration of contrast, no areas of abnormal enhancement are evident. There are no areas of restricted diffusion to suggest an acute infarct. There is no evidence of an intracranial mass lesion, intracranial hemorrhage, or hydrocephalus. The visualized portions of the orbits, calvarium and skull base demonstrate no acute abnormality. Mild mucosal thickening in the right maxillary sinus. Prior right mastoid surgery. IMPRESSION: No acute abnormality seen. Normal appearance of the brain. .
[2018-03-05] MEDS ORDERED: LISINOPRIL 20 MG TABLET PO SCH (09:00)
[2018-03-05] MEDS ORDERED: LEVETIRACETAM 500 MG TABLET PO SCH (09:00)
[2018-03-05] MEDS: ENOXAPARIN 40 MG/0.4 ML INJECTION SQ SCH (09:32)
[2018-03-05] MEDS: GABAPENTIN 300 MG CAPSULE PO SCH (09:32)
[2018-03-05] MEDS: DULOXETINE 60 MG CAPSULE PO SCH (09:33)
[2018-03-05] MEDS: CLOPIDOGREL 75 MG TABLET PO SCH (09:33)
[2018-03-05] MEDS: ASPIRIN 325 MG TABLET PO SCH (09:33)
--- NOTE | 2018-03-05 13:13 | Discharge Summary ---
Discharge Information Date of admission: 03/04/18 18:02 Attending Physician: Pavel Mccray MD Primary care physician: Cedric Colvin MD Consults: 03/04/18 19:23 [facility] Consult [CONS] Routine - Laboratory Labs: 03/05/18 03:53 03/05/18 03:53 CPK on admit: 31K. Decreased to 11K. - Radiology Radiology: MRI brain: No acute abnormality seen. Normal appearance of the brain. CT T-spine: No acute traumatic abnormality of the thoracic spine. C-spine: No acute traumatic abnormality of the cervical spine. L-spine: No acute traumatic abnormality of the lumbar spine. Chest CT: 1. Probable right eighth and ninth lateral rib fractures. 2. Areas of airspace disease could represent atelectasis versus pulmonary contusion versus residual from the patient's prior significant consolidative and masslike process seen on the 2017 study. History of Present Illness HPI: 52yo male with hx of a seizure disorder first diagnosed about 3 years ago, and is s/p resection of brain tumors x 2, presents after having an event which pt thinks is a seizure around 3 days ago, which left him laying on the ground after hitting his head. He recalls a tingling feeling which is a prodrome for his seizures in the past. twin is unsure how long he was unconscious. He has been taking his keppra as prescribed. No known loss of bowel or bladder function , and nobody was around to witness the event. In these 3 days, he has been getting around the house some, taking meds, although he has been somewhat confused with altered speech. Neighbors were concerned when he didn't open his door, and called the police. On arrival, pt didn't want to be taken in by ambulance, so his son brought him to the ER. In the ER, he noted that he's had very little to eat or drink in the last few days. His CPK was elevated and fluids given. For me, he notes ongoing pain on his left side ever since the fall. Notes a headache, with no vision changes currently. Otherwise no N/V/F/C/SOB/edema. He notes that he had a rice heater which he was laying on, which explains the interiano on his back. Objective Vital signs: Temperature 96.3 F L 03/05/18 08:00 Pulse Rate 90 03/05/18 08:00 Respiratory Rate 18 03/05/18 08:00 Blood Pressure 125/69 03/05/18 08:00 Pulse Oximetry 96 03/05/18 08:00 Rhythm: Normal Sinus Rhythm Height/Weight/BMI: Height 5 ft 10 in Weight 92.6 kg Body Mass Index 28.5 - Constitutional Present: no acute distress, well developed - Routine HEENT Exam Head: Present: normocephalic, atraumatic Eye: Present: EOMI, PERRL ENT: Present: mucous membranes moist, oropharynx clear, external ear normal - Routine Respiratory Exam Present: CTA bilaterally. Absent: wheezes, crackles - Routine Cardiovascular Exam Present: RRR. Absent: murmur, gallop, rubs - Routine Abdominal Exam Present: soft, normoactive bowel sounds, non distended, non tender. Absent: organomegaly - Routine Extremities Exam Present: full ROM, normal capillary refill. Absent: cyanosis, edema - Routine Skin Exam Present: dry, rash (Pt has several areas on his back which appear consistent with abraisions or a burn. Area on mid back approx 5 inches in diameter with erythema and very superficial eschar. Also has burn approx 2" in diameter on left posterior shoulder region. No purulence. ). Absent: intact, jaundice - Routine Neurological Exam Present: alert, oriented X3, CN II-XII intact, moving all extremities (5/5 strength). Absent: altered mental status - Routine Psychiatric Exam Present: normal affect. Absent: depressed, anxious Hospital Course This is a general summary of the patient's hospital course. For more details refer to the complete medical record. 52yo male with: Rhabdomyolysis: Likely due to prolonged pressure while being down, in addition to seizure/ convulsions, and possibly statin. Cr 1.2 --> 0.9 CPK 31K ---> 11K. Given LR @200ml/hr. Seizure: History brain tumors x 2. MRI brain with and without contrast unremarkable. Increased keppra to 1250mg BID upon dismissal. Interiano: Consistent with 2nd degree interiano as they are painful. Does not appear infected. Consulted wound and skin, will follow up as outpt follow up and debridement. Rib fractures: Pain control. Conservative management. Depression: Cont cymbalta Anxiety: Cont home xanax. Bipolar/Schizophrenia: Cont seroquel. External Problems Reviewed(CCD)?: Yes Discharge Plan - Discharge Disposition Discharge Date: 03/05/18 (\\) Disposition: 01 Discharged Home, Self-Care *Condition: Stable Reason For Visit (Visit label in EMR): rhabdomyolosis - Discharge Medications *Discharge Medications: Continue Omeprazole 40 mg PO DAILY #0 Albuterol Sulfate [Proair Hfa] 1 - 2 puff IH Q4-6H PRN #0 PRN Reason: PRN ORDERS Quetiapine [SEROquel] 200 mg PO HS Duloxetine [Cymbalta] 60 mg PO DAILY Aspirin 325 mg PO DAILY ALPRAZolam [Xanax] 1 mg PO TID PRN PRN Reason: Anxiety Hydrocodone/APAP 10/325 [[place] 10/325] 1 tab PO Q4H PRN PRN Reason: Pain Metoprolol Tartrate [Lopressor] 25 mg PO BID Metoclopramide HCl [Reglan] 10 mg PO Q6H PRN PRN Reason: Prn Orders Lisinopril [Prinivil] 20 mg PO DAILY Bethanechol [Urecholine] 10 mg PO TIDWM Tamsulosin [Flomax] 0.4 mg PO HS Cyclobenzaprine [Flexeril] 10 mg PO TID PRN PRN Reason: Prn Orders Atorvastatin [Lipitor] 40 mg PO DAILY Gemfibrozil [Lopid] 600 mg PO BID Clopidogrel Bisulfate [Clopidogrel] 75 mg PO DAILY #0 Gabapentin 600 mg PO TID Changed levETIRAcetam [Levetiracetam] 1,250 mg PO BID #0 - Discharge Packet/Instructions *Diet: Regular *Activity: As tolerated *Pain Management/Treatment: Tylenol PRN. *Wound Care: Per wound nurse (Needs to see prior to pt dismissal) *Expected Signs/Symptoms: Interiano on back should gradually heal. *Notify Physician if: Fever, wounds on back show signs of infection. *During Business Hours Contact: PCP *After Business Hours Contact: PCP *Pending Lab/Results: No Pending Lab - Referrals/Follow Up - Patient Handouts - Dismissal Complete Discharge Instructions are:: Complete Physician Narrative - Narrative Physician: other Attestation Narrative: Date: 03/05/18 Time: [id number]
--- NOTE | 2018-03-05 13:47 | Wound Care Progress Note ---
Wound Center Progress Note: Pt seen for wound consultation r/t mathews on R midback. Pt resting in bed, no complaints of pain. Pt will discharge later this afternoon. Pt experienced a fall at home r/t a seizure disorder. He states he was "out of it for 3 days, does not know what happened." Pt reports he was using a rice filled bag, the kind you put in the microwave to heat up for muscle aches, on his back. He did not realize he had burned his back until a friend noticed the mathews and inquired as to what happened. Pt felt no pain from the mathews. Pt is a poor historian; mathews are at least 3 days old. R midback: Burn, composite wound measures 10.5 (L) x 9 (W). There is a central area of injury with satellite lesions superior and medial to central area. All wound beds have adherent dry yellowish slough. Periwound: blanchable erythema, no pain reported with palpation, small dried serosanguineous drainage on pt's T-shirt. Advised pt on topical wound care dressings; Silvadene or Santyl, covered with Xeroform and a secondary dressing. [facility] does not have these creams available at this time. Pt has an appointment to f/u at [facility] with Dr. Birch 03/09/18 for wound treatment.
== END 2018-03-05 15:15 | disposition home or self-care (01) ==
LOC: EDHOLD 15:00 → ED 15:00 → SUATTDRO 18:02 → MED 18:08
PROVIDERS: ADMIT Internal Medicine; ATTEND Family Medicine